=== PATIENT | female | born 1965 | race Caucasian/White ===

== ENCOUNTER → 2017-04-13 | Outpatient (REF) | payer MEDICARE, MEDICAID | LOC: M SFHCPLAZ 09:14 | PROVIDERS: ATTEND Family Medicine | DX: Z13.220 Encounter for screening for lipoid disorders (principal); R51 Headache; E55.9 Vitamin D deficiency, unspecified; Z68.42 Body mass index [BMI] 45.0-49.9, adult; Z53.8 Procedure and treatment not carried out for other reasons ==

== ENCOUNTER → 2017-04-20 | Outpatient (REF) | payer MEDICARE, MEDICAID ==
[2017-04-20 12:45] LABS: ALBUMIN 3.7 GM/DL (3.2-5.2); ALBUMIN/GLOBULIN RATIO 1.32 (1.00-1.93); ALKALINE PHOSPHATASE 75 U/L (45-117); ALT/SGPT 49 U/L (12-78); ANION GAP 14 MEQ/L (8-16); AST/SGOT 25 U/L (15-37); BILIRUBIN,TOTAL 0.5 MG/DL (0.2-1.0); BLOOD UREA NITROGEN 19 MG/DL (7-18); CALCIUM LEVEL 8.4 MG/DL (8.5-10.1); CARBON DIOXIDE LEVEL 17 MEQ/L (21-32); CHLORIDE LEVEL 110 MEQ/L (98-107); CHOLESTEROL LEVEL 187 MG/DL (<200); CREATININE FOR GFR 0.79 MG/DL (0.55-1.02); GLOMERULAR FILTRATION RATE > 60.0 (>51); GLUCOSE, FASTING 76 MG/DL (70-105); SODIUM LEVEL 141 MEQ/L (136-145); TOTAL PROTEIN 6.5 GM/DL (6.4-8.2); TRIGLYCERIDES LEVEL 58 MG/DL (<150)
== END ==
LOC: M LABDRAW1 11:35
PROVIDERS: ATTEND Family Medicine
DX: Z13.220 Encounter for screening for lipoid disorders (principal); R51 Headache; E55.9 Vitamin D deficiency, unspecified; Z68.42 Body mass index [BMI] 45.0-49.9, adult; E78.00 Pure hypercholesterolemia, unspecified

== ENCOUNTER → 2017-10-19 | Outpatient (REF) | payer MEDICARE, MEDICAID ==
[2017-10-21 01:09] LABS: TOPIRAMATE LEVEL 19.1 ug/mL (2.0-25.0)
== END ==
LOC: M LABDRAWC 12:10 → M LABDRAWP 12:10
PROVIDERS: ATTEND Physician Assistant Medical
DX: R56.9 Unspecified convulsions (principal); Z51.81 Encounter for therapeutic drug level monitoring; Z79.899 Other long term (current) drug therapy; Z23 Encounter for immunization
CPT/HCPCS: 36415; 80180; 80299; 90686; G0008

== ENCOUNTER → 2018-04-13 | Outpatient (REF) | payer MEDICARE, MEDICAID ==
[2018-04-16 10:18] LABS: LEVETIRACETAM (KEPPRA) 20.1 ug/mL (10.0-40.0)
[2018-04-16 10:18] LABS: TOPIRAMATE LEVEL 16.5 ug/mL (2.0-25.0)
== END ==
LOC: M LABNEURO 08:14
DX: G40.909 Epilepsy, unspecified, not intractable, without status epilepticus (principal)
CPT/HCPCS: 36415

== ENCOUNTER → 2018-04-29 | Outpatient (CLI) | payer MEDICARE, MEDICAID | LOC: M WUC 08:59 | DX: M51.37 Other intervertebral disc degeneration, lumbosacral region (principal); S39.012A Strain of muscle, fascia and tendon of lower back, initial encounter; X58.XXXA Exposure to other specified factors, initial encounter; Y92.89 Other specified places as the place of occurrence of the external cause | CPT/HCPCS: 87086 ==

== ENCOUNTER → 2018-10-14 | Outpatient (REF) | payer MEDICARE, MEDICAID ==
[2018-10-18 14:16] LABS: TOPIRAMATE LEVEL 15.4 ug/mL (2.0-25.0)
[2018-10-18 14:16] LABS: LEVETIRACETAM (KEPPRA) 20.7 ug/mL (10.0-40.0)
== END ==
LOC: M LABNEURO 08:23
DX: G40.909 Epilepsy, unspecified, not intractable, without status epilepticus (principal)
CPT/HCPCS: 80299

== ENCOUNTER → 2019-04-19 | Outpatient (CLI) | payer MEDICARE, MEDICAID ==
[2019-04-22 14:11] LABS: LEVETIRACETAM (KEPPRA) 20.4 ug/mL (10.0-40.0); TOPIRAMATE LEVEL 17.2 ug/mL (2.0-25.0)
== END ==
LOC: M LABNEURO 08:35 → EDSTATUS 09:22 → M LAB 09:22
PROVIDERS: ATTEND Physician Assistant Medical
DX: R56.9 Unspecified convulsions (principal)

== ENCOUNTER 2019-05-21 08:27 | Emergency (ER) | payer MEDICARE, MEDICAID ==
[~2019-05-21] VITALS: Ht 162.6 cm; Wt 136.4 kg
[2019-05-21 08:27] VITALS: BP 137/67
[2019-05-21] MEDS ORDERED: SERT-155 (08:44)
[2019-05-21] MEDS ORDERED: LEVO50TA5 (08:44)
[2019-05-21] MEDS ORDERED: TOPI200T7 (08:44)
[2019-05-21] MEDS ORDERED: LEVE500T5 (08:44)
[2019-05-21] MEDS ORDERED: FLUTISP (08:44)
[2019-05-21] MEDS ORDERED: D200CAP2 (08:44)
[2019-05-21] MEDS ORDERED: TOPI50TA9 (08:44)
[2019-05-21] MEDS ORDERED: LOTRCRE TOP (08:54)
== END 2019-05-21 09:05 | disposition home or self-care (01) ==
LOC: M ED 08:27
DX: B35.6 Tinea cruris (principal); E03.9 Hypothyroidism, unspecified; Z79.899 Other long term (current) drug therapy; Z79.890 Hormone replacement therapy; Z88.0 Allergy status to penicillin; Z88.2 Allergy status to sulfonamides; Z88.8 Allergy status to other drugs, medicaments and biological substances

== ENCOUNTER → 2019-06-28 | Outpatient (REF) | payer MEDICARE, MEDICAID ==
[~2019-06-28] MED LIST: D200CAP2; FLUTISP; LEVE500T5; LEVO50TA5; LOTRCRE TOP; SERT-155; TOPI200T7; TOPI50TA9
[2019-06-28 18:31] LABS: ALBUMIN 3.9 GM/DL (3.2-5.2); ALT/SGPT 23 U/L (12-78); BILIRUBIN,TOTAL 0.4 MG/DL (0.2-1.0); BLOOD UREA NITROGEN 20 MG/DL (7-18); CALCIUM LEVEL 8.9 MG/DL (8.5-10.1); CARBON DIOXIDE LEVEL 25 MEQ/L (21-32); CHLORIDE LEVEL 109 MEQ/L (98-107); CREATININE FOR GFR 1.01 MG/DL (0.55-1.30); FREE T4 0.77 NG/DL (0.76-1.46); GLOMERULAR FILTRATION RATE > 60.0 (>51); GLUCOSE, FASTING 95 MG/DL (70-100); POTASSIUM SERUM 3.9 MEQ/L (3.5-5.1); SODIUM LEVEL 139 MEQ/L (136-145); TOTAL PROTEIN 7.1 GM/DL (6.4-8.2)
[2019-06-28 18:34] LABS: TOTAL 25(OH) VITAMIN D 23.7 NG/ML (30.0-100.0)
== END ==
LOC: M SFHCPLAZ 14:38
PROVIDERS: ATTEND Family Medicine
DX: E55.9 Vitamin D deficiency, unspecified (principal); E03.9 Hypothyroidism, unspecified
CPT/HCPCS: 36415; 80053; 82306; 84439; 84443; G0463

== ENCOUNTER 2019-08-24 09:27 | Emergency (ER) | payer MEDICARE, MEDICAID ==
[~2019-08-24] VITALS: Ht 162.6 cm; Wt 136.4 kg
[2019-08-24 09:27] VITALS: BP 193/98
[~2019-08-24 09:27] MED LIST changes: -SERT-155; +SERT50TA29
[2019-08-24] MEDS ORDERED: ALL10TAB29 (09:35)
[2019-08-24] MEDS ORDERED: GLUC500C6 (09:35)
--- NOTE | 2019-08-24 10:21 | REP ---
CHEST, TWO VIEWS: Two views of the chest performed without priors for comparison. There is mild cardiomegaly. There is no acute infiltrate. There is some tortuosity of the thoracic aorta. Mediastinal silhouette is otherwise unremarkable. IMPRESSION: Mild cardiomegaly. No acute pulmonary disease. Electronically Signed by Jensen Duffy MD 08/24/2019 11:26 A
[2019-08-24] MEDS ORDERED: NYST1POW9 TOP (10:35)
== END 2019-08-24 10:41 | disposition home or self-care (01) ==
LOC: M ED 09:27
DX: B35.6 Tinea cruris (principal); J30.9 Allergic rhinitis, unspecified; I51.7 Cardiomegaly; E03.9 Hypothyroidism, unspecified; Z88.0 Allergy status to penicillin; Z88.2 Allergy status to sulfonamides; Z79.52 Long term (current) use of systemic steroids; Z79.899 Other long term (current) drug therapy

== ENCOUNTER → 2019-10-14 | Outpatient (REF) | payer MEDICARE, MEDICAID ==
[~2019-10-14] MED LIST changes: +ALL10TAB29; +GLUC500C6; +NYST1POW9 TOP
[2019-10-18 00:07] LABS: LEVETIRACETAM (KEPPRA) 16.3 ug/mL (10.0-40.0); TOPIRAMATE LEVEL 15.4 ug/mL (2.0-25.0)
== END ==
LOC: M LABNEURO 08:14
PROVIDERS: ATTEND Physician Assistant Medical
DX: G40.909 Epilepsy, unspecified, not intractable, without status epilepticus (principal)

== ENCOUNTER 2020-04-29 10:42 | Emergency (ER) | payer MEDICARE, MEDICAID ==
[~2020-04-29 10:42] MED LIST changes: -ALL10TAB29; +ALL10TAB29 PO; -FLUTISP; +FLUTISP NARES; -GLUC500C6; -LEVE500T5; +LEVE500T5 PO; -LEVO50TA5; +LEVO50TA5 PO; -SERT50TA29; +SERT50TA29 PO; -TOPI200T7; +TOPI200T7 PO; +[UNRECOGNIZED DRUG - CODE] PO
[2020-04-29] MEDS ORDERED: NAPR-885 PO (10:48)
[2020-04-29] MEDS ORDERED: TOLT2TAB12 PO (10:48)
[2020-04-29] MEDS ORDERED: LIDOCAINE 5% (LIDODERM) PATCH TD ONE (12:15)
[2020-04-29 12:43] LABS: BASO # 0.1 10^3/uL (0.0-0.2); BASO % 0.8 % (0.0-1.0); EOS # 0.2 10^3/uL (0.0-0.5); EOS % 1.8 % (0.0-3.0); HEMATOCRIT 49.3 % (36.0-47.0); HEMOGLOBIN 16.3 g/dl (12.0-15.5); LYMPH # 1.8 10^3/uL (1.5-5.0); LYMPH % 21.6 % (24.0-44.0); MEAN CORPUSCULAR HEMOGLOBIN 31.3 pg (27.0-33.0); MEAN CORPUSCULAR HGB CONC 33.1 g/dl (32.0-36.5); MEAN CORPUSCULAR VOLUME 94.6 fl (80.0-96.0); MONO # 0.5 10^3/uL (0.0-0.8); MONO % 5.5 % (0.0-5.0); NEUTROPHILS # 5.8 10^3/uL (1.5-8.5); NEUTROPHILS % 69.7 % (36.0-66.0); PLATELET COUNT, AUTOMATED 213 10^3/uL (150-450); RED BLOOD COUNT 5.21 10^6/uL (4.00-5.40); WHITE BLOOD COUNT 8.3 10^3/uL (4.0-10.0)
[2020-04-29] MEDS ORDERED: ACETAMINOPH W/CODEINE #3 TAB UD PO ONE (13:45)
[2020-04-29 13:46] VITALS: BP 138/77
[2020-04-29] MEDS ORDERED: LIDO5DIS41 TOP (14:12)
[2020-04-29] MEDS ORDERED: BACL10TA2 PO (14:12)
[2020-04-29] MEDS ORDERED: BACLOFEN 10 MG TAB PO ONE (14:15)
[2020-04-29] MEDS ORDERED: **NOTE PATIENT COMMENT** MISC XX SCH (21:00)
[2020-05-16] MEDS ORDERED: HALO10TA20 PO (10:10)
== END 2020-04-29 14:26 | disposition home or self-care (01) ==
LOC: M ED 10:42
DX: M54.5 Low back pain (principal); G89.29 Other chronic pain; G40.909 Epilepsy, unspecified, not intractable, without status epilepticus; E03.9 Hypothyroidism, unspecified; Z79.899 Other long term (current) drug therapy

== ENCOUNTER 2020-05-05 11:30 | Emergency (ER) | payer MEDICARE, MEDICAID ==
[~2020-05-05 11:30] MED LIST changes: +BACL10TA2 PO; +LIDO5DIS41 TOP; +NAPR-885 PO; +TOLT2TAB12 PO
[2020-05-05] MEDS ORDERED: HALOPERIDOL 5MG/ML VIAL (J1630 PER 1) IM ONE (13:15)
[2020-05-05] MEDS ORDERED: LORazepam 2 MG/ML VIAL IM ONE (13:15)
[2020-05-05 13:48] LABS: HEMATOCRIT 47.3 % (36.0-47.0); HEMOGLOBIN 15.9 g/dl (12.0-15.5); MEAN CORPUSCULAR HEMOGLOBIN 31.8 pg (27.0-33.0); MEAN CORPUSCULAR HGB CONC 33.6 g/dl (32.0-36.5); MEAN CORPUSCULAR VOLUME 94.6 fl (80.0-96.0); PLATELET COUNT, AUTOMATED 160 10^3/uL (150-450); WHITE BLOOD COUNT 7.8 10^3/uL (4.0-10.0)
[2020-05-05 13:59] LABS: HCG, SERUM QUALITATIVE NEGATIVE (NEGATIVE)
[2020-05-05 14:13] LABS: ACETAMINOPHEN LEVEL < 2.0 UG/ML (10.0-30.0); ALBUMIN 4.1 GM/DL (3.2-5.2); ALT/SGPT 23 U/L (12-78); AMPHETAMINES LEVEL URINE NEGATIVE (NEGATIVE); BARBITURATES URINE NEGATIVE (NEGATIVE); BENZODIAZEPINES URINE NEGATIVE (NEGATIVE); BILIRUBIN,DIRECT 0.1 MG/DL (0.0-0.2); BILIRUBIN,TOTAL 0.5 MG/DL (0.2-1.0); BLOOD UREA NITROGEN 17 MG/DL (7-18); CALCIUM LEVEL 8.9 MG/DL (8.5-10.1); CANNABINOIDS URINE NEGATIVE (NEGATIVE); CARBON DIOXIDE LEVEL 17 MEQ/L (21-32); CHLORIDE LEVEL 112 MEQ/L (98-107); COCAINE METABOLITE URINE NEGATIVE (NEGATIVE); CREATININE FOR GFR 1.04 MG/DL (0.55-1.30); ETHYL ALCOHOL (ETHANOL) 0.006 % (0.000-0.010); GLOMERULAR FILTRATION RATE 58.6 (>51); GLUCOSE, FASTING 97 MG/DL (70-100); METHADONE URINE NEGATIVE (NEGATIVE); OPIATES URINE NEGATIVE (NEGATIVE); PHENCYCLIDINE URINE NEGATIVE (NEGATIVE); POTASSIUM SERUM 4.3 MEQ/L (3.5-5.1); SALICYLATE LEVEL < 1.7 MG/DL (5.0-30.0); SODIUM LEVEL 139 MEQ/L (136-145); TOTAL PROTEIN 7.4 GM/DL (6.4-8.2)
[2020-05-05 17:12] VITALS: BP 151/77
[2020-05-16] MEDS ORDERED: HALO10TA20 PO (10:10)
== END 2020-05-05 17:13 | disposition home or self-care (01) ==
LOC: EDBD 11:30 → M ED 11:30
DX: F43.0 Acute stress reaction (principal); Z63.9 Problem related to primary support group, unspecified; E03.9 Hypothyroidism, unspecified; Z79.899 Other long term (current) drug therapy; Z88.0 Allergy status to penicillin; Z88.8 Allergy status to other drugs, medicaments and biological substances
CPT/HCPCS: 36415; 80048; 80076; 80307; 84443; 84703; 85027; 99284; G0480

== ENCOUNTER 2020-05-10 04:28 | Emergency (ER) | payer MEDICARE, MEDICAID ==
[2020-05-10 07:09] LABS: BASO % 0.7 % (0.0-1.0); EOS # 0.1 10^3/uL (0.0-0.5); HEMATOCRIT 45.7 % (36.0-47.0); HEMOGLOBIN 14.9 g/dl (12.0-15.5); LYMPH # 1.4 10^3/uL (1.5-5.0); LYMPH % 24.4 % (24.0-44.0); MEAN CORPUSCULAR HEMOGLOBIN 31.3 pg (27.0-33.0); MEAN CORPUSCULAR HGB CONC 32.6 g/dl (32.0-36.5); MONO # 0.4 10^3/uL (0.0-0.8); MONO % 6.8 % (0.0-5.0); NEUTROPHILS # 3.9 10^3/uL (1.5-8.5); NEUTROPHILS % 65.6 % (36.0-66.0); PLATELET COUNT, AUTOMATED 160 10^3/uL (150-450); RED BLOOD COUNT 4.76 10^6/uL (4.00-5.40); WHITE BLOOD COUNT 5.9 10^3/uL (4.0-10.0)
[2020-05-10] MEDS ORDERED: FLEET OIL RETENTION ENEMA PR PRN (07:15)
[2020-05-10 07:34] LABS: ALBUMIN 3.6 GM/DL (3.2-5.2); ALT/SGPT 19 U/L (12-78); BILIRUBIN,DIRECT < 0.1 MG/DL (0.0-0.2); BILIRUBIN,TOTAL 0.5 MG/DL (0.2-1.0); BLOOD UREA NITROGEN 14 MG/DL (7-18); CALCIUM LEVEL 8.5 MG/DL (8.5-10.1); CARBON DIOXIDE LEVEL 18 MEQ/L (21-32); CHLORIDE LEVEL 113 MEQ/L (98-107); CREATININE FOR GFR 1.08 MG/DL (0.55-1.30); GLOMERULAR FILTRATION RATE 56.1 (>51); GLUCOSE, FASTING 94 MG/DL (70-100); LIPASE 90 U/L (73-393); POTASSIUM SERUM 5.5 MEQ/L (3.5-5.1); SODIUM LEVEL 138 MEQ/L (136-145); TOTAL PROTEIN 6.6 GM/DL (6.4-8.2)
--- NOTE | 2020-05-10 08:07 | REP ---
REASON: Constipation. FINDINGS: KUB shows the intestinal gas pattern to be nonspecific. The organ silhouettes insofar as delineated are unremarkable. There is no evidence of free intraperitoneal air. IMPRESSION: Nonspecific. The stool pattern appears to be within normal limits. Electronically Signed by Phill Nixon DO 05/10/2020 08:07 A
[2020-05-10 09:08] LABS: BLOOD UREA NITROGEN 12 MG/DL (7-18); CALCIUM LEVEL 8.6 MG/DL (8.5-10.1); CARBON DIOXIDE LEVEL 18 MEQ/L (21-32); CHLORIDE LEVEL 112 MEQ/L (98-107); CREATININE FOR GFR 0.92 MG/DL (0.55-1.30); GLOMERULAR FILTRATION RATE > 60.0 (>51); GLUCOSE, FASTING 97 MG/DL (70-100); POTASSIUM SERUM 4.2 MEQ/L (3.5-5.1); SODIUM LEVEL 139 MEQ/L (136-145)
[2020-05-10] MEDS ORDERED: MIRA3350 PO (09:14)
[2020-05-10 09:25] VITALS: BP 134/82
[2020-05-11] MEDS ORDERED: D 202000 PO (10:33)
[2020-05-16] MEDS ORDERED: HALO10TA20 PO (10:10)
== END 2020-05-10 09:26 | disposition home or self-care (01) ==
LOC: EDBD 04:28 → M ED 04:28
DX: K59.00 Constipation, unspecified (principal); R10.9 Unspecified abdominal pain; E03.9 Hypothyroidism, unspecified; G40.909 Epilepsy, unspecified, not intractable, without status epilepticus; Z88.0 Allergy status to penicillin; Z88.8 Allergy status to other drugs, medicaments and biological substances; Z79.899 Other long term (current) drug therapy

== ENCOUNTER 2020-05-10 10:39 | Emergency (ER) | payer MEDICARE, MEDICAID ==
[~2020-05-10 10:39] MED LIST changes: +MIRA3350 PO
[2020-05-10 10:52] VITALS: BP 136/65
[2020-05-10] MEDS ORDERED: IBUPROFEN 800 MG TAB PO ONE (12:00)
[2020-05-11] MEDS ORDERED: D 202000 PO (10:33)
[2020-05-16] MEDS ORDERED: HALO10TA20 PO (10:10)
== END 2020-05-10 13:00 | disposition left against medical advice (07) ==
LOC: EDBD 10:39 → M ED 10:39
DX: R10.9 Unspecified abdominal pain (principal); G40.909 Epilepsy, unspecified, not intractable, without status epilepticus; E03.9 Hypothyroidism, unspecified; F41.9 Anxiety disorder, unspecified; E32.9 Disease of thymus, unspecified; Z88.0 Allergy status to penicillin; Z88.8 Allergy status to other drugs, medicaments and biological substances; Z79.899 Other long term (current) drug therapy

== ENCOUNTER 2020-05-10 18:45 | Emergency (ER) | payer MEDICARE, MEDICAID ==
[2020-05-10 21:24] VITALS: BP 132/65
[2020-05-11] MEDS ORDERED: D 202000 PO (10:33)
== END 2020-05-10 21:30 | disposition home or self-care (01) ==
LOC: M ED 18:45
DX: F91.9 Conduct disorder, unspecified (principal); R10.9 Unspecified abdominal pain; K59.00 Constipation, unspecified; G40.909 Epilepsy, unspecified, not intractable, without status epilepticus; E03.9 Hypothyroidism, unspecified; F41.9 Anxiety disorder, unspecified; F32.9 Major depressive disorder, single episode, unspecified; Z88.0 Allergy status to penicillin; Z88.8 Allergy status to other drugs, medicaments and biological substances; Z79.899 Other long term (current) drug therapy

== ENCOUNTER 2020-05-11 06:28 | Inpatient (IN) | payer MEDICARE, MEDICAID ==
[~2020-05-11] VITALS: Ht 172.7 cm; Wt 127.3 kg
[2020-05-11] VITALS (8 sets, daily range): BP systolic 108–151; BP diastolic 59–81
[2020-05-11] MEDS ORDERED: NS 1,000 ML IV ONE (07:30)
[2020-05-11] MEDS ORDERED: ISOVUE-370 76% 100ML VIAL As Ordered ONE (07:48)
[2020-05-11 08:10] LABS: HEMATOCRIT 45.6 % (36.0-47.0); HEMOGLOBIN 15.3 g/dl (12.0-15.5); MEAN CORPUSCULAR HEMOGLOBIN 32.1 pg (27.0-33.0); MEAN CORPUSCULAR HGB CONC 33.6 g/dl (32.0-36.5); MEAN CORPUSCULAR VOLUME 95.6 fl (80.0-96.0); PLATELET COUNT, AUTOMATED 141 10^3/uL (150-450); RED BLOOD COUNT 4.77 10^6/uL (4.00-5.40); WHITE BLOOD COUNT 5.4 10^3/uL (4.0-10.0)
--- NOTE | 2020-05-11 08:19 | REP ---
Two-view chest: 05/11/2020. Indication: Chest pain. Epigastric pain. Comparison: 08/24/2019. Findings: The lungs are clear. There is no pleural effusion or pneumothorax. The cardiac silhouette is at the upper limits of normal in size. The thoracic aorta is tortuous. Impression: Clear lungs. Electronically Signed by Fadi Lott DO 05/11/2020 08:11 A
[2020-05-11 08:39] LABS: ACETAMINOPHEN LEVEL < 2.0 UG/ML (10.0-30.0); ALT/SGPT 17 U/L (12-78); BILIRUBIN,DIRECT 0.1 MG/DL (0.0-0.2); BILIRUBIN,TOTAL 0.5 MG/DL (0.2-1.0); BLOOD UREA NITROGEN 12 MG/DL (7-18); CALCIUM LEVEL 8.4 MG/DL (8.5-10.1); CARBON DIOXIDE LEVEL 23 MEQ/L (21-32); CHLORIDE LEVEL 110 MEQ/L (98-107); CK-MB VALUE MASS 1.2 NG/ML (<3.6); CPK CREATINE PHOSPHOKINASE 55 U/L (26-192); CREATININE FOR GFR 1.02 MG/DL (0.55-1.30); ETHYL ALCOHOL (ETHANOL) 0.005 % (0.000-0.010); FREE T4 1.16 NG/DL (0.76-1.46); GLOMERULAR FILTRATION RATE 59.9 (>51); GLUCOSE, FASTING 89 MG/DL (70-100); LIPASE 113 U/L (73-393); MB/CK RELATIVE INDEX 2.18 (< OR =4); POTASSIUM SERUM 3.9 MEQ/L (3.5-5.1); SALICYLATE LEVEL < 1.7 MG/DL (5.0-30.0); SODIUM LEVEL 140 MEQ/L (136-145); TOTAL PROTEIN 7.2 GM/DL (6.4-8.2); TROPONIN I < 0.02 NG/ML (< 0.10)
--- NOTE | 2020-05-11 08:45 | REPVR ---
PROCEDURE INFORMATION: Exam: CT Abdomen And Pelvis With Contrast Exam date and time: 05/11/2020 8:00 AM Age: 55 years old Clinical indication: Abdominal pain; Generalized TECHNIQUE: Imaging protocol: Computed tomography of the abdomen and pelvis with intravenous contrast. Coronal and sagittal reformats were created and reviewed. Radiation optimization: All CT scans at this facility use at least one of these dose optimization techniques: automated exposure control; mA and/or kV adjustment per patient size (includes targeted exams where dose is matched to clinical indication); or iterative reconstruction. Contrast material: ISOVUE 370; Contrast volume: 100 ml; Contrast route: IV; COMPARISON: OH Abdomen,Flat Plate KUB 05/10/2020 6:28 AM FINDINGS: Limitations: Evaluation is limited by motion. Lungs: The visualized lung bases are unremarkable. Liver: Liver is unremarkable. Gallbladder and bile ducts: No intrahepatic or extrahepatic bile duct dilation. Evaluation of the gallbladder is limited by motion. The gallbladder is mildly dilated. Gallstones are present within the gallbladder. Pancreas: Pancreas is unremarkable. Spleen: Spleen is unremarkable. Adrenals: Adrenal glands are unremarkable. Kidneys and ureters: No hydronephrosis of either kidney. There are a few less than 5 mm rounded hypoattenuating foci of the left renal parenchyma that are too small to characterize, probably renal cysts. No ureteral calculus or abnormal dilation. Stomach and bowel: The stomach is decompressed; this limits evaluation of its wall thickness. No evidence of colonic inflammation or obstruction. No evidence of small bowel inflammation or obstruction. Appendix: No evidence of appendicitis. Intraperitoneal space: No free intraperitoneal fluid. No pneumoperitoneum. Vasculature: Mild aortic atherosclerosis. No abdominal aortic aneurysm. Lymph nodes: No enlarged lymph nodes. Bladder: The urinary bladder is decompressed. Reproductive: Unremarkable as visualized. Bones/joints: Multilevel degenerative spine disease. Among this, there is multilevel lumbar intervertebral disc space narrowing, endplate osteophytosis, Schmorl nodes, and neural foraminal stenoses. Soft tissues: Unremarkable. IMPRESSION: Cholecystolithiasis. Nonspecific mild gallbladder dilation. The gallbladder dilation could be secondary to fasting. If there are clinical signs/symptoms of acute cystic duct obstruction, then further evaluation with gallbladder ultrasound is recommended. COMMENTS: Consistent with the [place] [employer]'s Incidental Findings Committee white paper (J Am Francesca Radiol 2018): Any incidental renal lesion less than 1.0 cm or classified as too small to characterize, or any incidental cystic renal lesion characterized as simple-appearing, is likely benign. No follow-up imaging is recommended for these lesions per consensus recommendations based on imaging criteria. Electronically signed by: Vitor Gaitan On 05/11/2020 08:45:03 AM
[2020-05-11 09:48] LABS: AMPHETAMINES LEVEL URINE NEGATIVE (NEGATIVE); BARBITURATES URINE NEGATIVE (NEGATIVE); BENZODIAZEPINES URINE NEGATIVE (NEGATIVE); CANNABINOIDS URINE NEGATIVE (NEGATIVE); COCAINE METABOLITE URINE NEGATIVE (NEGATIVE); METHADONE URINE NEGATIVE (NEGATIVE); OPIATES URINE NEGATIVE (NEGATIVE); PHENCYCLIDINE URINE NEGATIVE (NEGATIVE)
--- NOTE | 2020-05-11 10:18 | REP ---
RIGHT UPPER QUADRANT ULTRASOUND: Real-time sonographic evaluation of the right upper quadrant performed. Multiple gallstones are seen in the gallbladder. These are mobile. There is no gallbladder wall thickening or pericholecystic fluid. The patient is tender at the site of the gallbladder with transducer pressure. There is on intrahepatic or extrahepatic biliary dilatation, common bile duct measuring 5 mm. Liver and pancreas demonstrates no gross mass. The pancreas is not optimally seen due to overlying bowel gas. Right kidney demonstrates no hydronephrosis with normal size 10.1 cm in length. IMPRESSION: Multiple mobile gallstones in the gallbladder. No gallbladder wall thickening. No pericholecystic fluid or biliary dilatation. Patient is tender at the site of the gallbladder. Unreviewed
[2020-05-11] MEDS ORDERED: D 202000 PO (10:33)
[2020-05-11] MEDS: NS 1,000 ML IV SCH ×2 (14:31→20:35)
[2020-05-11] MEDS ORDERED: LIDOCAINE 1% MDV 20ML VIAL As Ordered ONE (14:55)
[2020-05-11] MEDS ORDERED: KETOROLAC 30 MG/ML 1ML VIAL IV PRN (15:00)
--- NOTE | 2020-05-11 15:58 | ECGEPIP ---
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
[2020-05-11] MEDS ORDERED: LORazepam 2 MG/ML VIAL As Ordered ONE (16:14)
[2020-05-11] MEDS ORDERED: HALOPERIDOL 5MG/ML VIAL (J1630 PER 1) As Ordered ONE ×2 (16:18→16:31)
[2020-05-11] MEDS ORDERED: HALOPERIDOL 5MG/ML VIAL (J1630 PER 1) IM STA ×2 (16:50→16:51)
[2020-05-11] MEDS ORDERED: LORazepam 2 MG/ML VIAL IM STA (16:50)
[2020-05-11] MEDS ORDERED: diphenhydrAMINE 50MG/ML VIAL (J1200) IM PRN (17:00)
[2020-05-11] MEDS ORDERED: diphenhydrAMINE 50MG/ML VIAL (J1200) IM ONE (17:00)
[2020-05-11] MEDS ORDERED: HALOPERIDOL 5MG/ML VIAL (J1630 PER 1) IM PRN (17:00)
--- NOTE | 2020-05-11 18:20 | MHCRPDOC ---
[facility] Consultation Consultation DATE OF CONSULTATION: 05/11/20 CONSULTATION REQUESTED BY: Dr. 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 RELEVANT HISTORY: unknown mental health history. Unable to complete telehealth consultation due to technical problems, however patient need to be coded mu ltiple times and is still currently heavily sedated thus making hello consultation moot PAST PSYCHIATRIC HISTORY: unknown history PAST MEDICAL HISTORY:, abdominal pain FAMILY HISTORY: unknown PERSONAL AND SOCIAL HISTORY: Resides in: [place] with mother Marital Status: S Single Children: unknown Employment: unknown SUBSTANCE ABUSE HISTORY: urine toxicology negative MENTAL STATUS EXAMINATION: unable to complete DIAGNOSIS: 1. Aggression. PLAN: 1. Admitted to inpatient mental health on a 9.39. Vital Signs Vital Signs Date Time Temp Pulse Resp B/P (MAP) Pulse Ox O2 Delivery O2 Flow Rate FiO2 05/11/20 17:45 97.7 53 16 121/64 98 Room Air Laboratory Data 24H Labs Laboratory Tests 2 05/11/20 06:33: Urine Opiates Screen NEGATIVE, Urine Methadone Screen NEGATIVE, Urine Barbiturates Screen NEGATIVE, Urine Phencyclidine Screen NEGATIVE, Urine Amphetamines Screen NEGATIVE, Urine Benzodiazepines Screen NEGATIVE, Urine Cocaine Metabolite Screen NEGATIVE, Urine Cannabinoids Screen NEGATIVE 05/11/20 07:56: Nucleated Red Blood Cells % (auto) 0.0, Anion Gap 7L, Glomerular Filtration Rate 59.9, Lactic Acid Level 0.7, Calcium Level 8.4L, Total Bilirubin 0.5, Direct Bilirubin 0.1, Aspartate Amino Transf (AST/SGOT) 7, Alanine Aminotransferase (ALT/SGPT) 17, Alkaline Phosphatase 72, Total Creatine Kinase 55, Creatine Kinase MB 1.2, Creatine Kinase MB Relative Index 2.18, Troponin I < 0.02, Total Protein 7.2, Albumin 4.0, Albumin/Globulin Ratio 1.3, Lipase 113, Thyroid Stimulating Hormone (TSH) 2.930, Free Thyroxine 1.16, Salicylates Level < 1.7L, Acetaminophen Level < 2.0L, Ethyl Alcohol Level 0.005 05/11/20 09:19: Urine Color STRAW, Urine Appearance CLEAR, Urine pH 6.0, Urine Specific [place] >1.060H, Urine Protein NEGATIVE, Urine Glucose (UA) NEGATIVE, Urine Ketones NEGATIVE, Urine Blood NEGATIVE, Urine Nitrite NEGATIVE, Urine Bilirubin NEGATIVE, Urine Urobilinogen 0.2, Urine Leukocyte Esterase NEGATIVE, Urine WBC (Auto) 1, Urine RBC (Auto) 1, Urine Hyaline Casts (Auto) 0, Urine Bacteria (Auto) NEGATIVE, Urine Squamous Epithelial Cells 1, Urine Mucus (Auto) SMALL, Urine Sperm (Auto) 05/11/20 13:24: Methicillin-Resist S.aureus DNA PCR NOT DETECTED Home Medications Current Medications Current Medications Medications (Trade) Dose Ordered Sig/Joe Route PRN Reason Start Time Stop Time Status Last Admin Dose Admin Acetaminophen (Tylenol Tab) 650 mg Q4HP PRN PO PAIN OR FEVER 05/11/20 15:00 Diphenhydramine HCl (Benadryl) 50 mg Q6HP PRN IM AGITATION 05/11/20 17:00 Haloperidol (Haldol) 5 mg STAT STAT IM 05/11/20 16:50 05/11/20 16:52 DC 05/11/20 16:20 Haloperidol (Haldol) 5 mg STAT STAT IM 05/11/20 16:51 05/11/20 16:53 DC 05/11/20 16:31 Haloperidol (Haldol) 10 mg Q6HP PRN IM AGITATION 05/11/20 17:00 Home Med (Med Rec Complete!) ASDIRECTED XX 05/11/20 10:45 05/11/20 10:35 DC Ketorolac Tromethamine (ToRADol) 15 mg Q6HP PRN IV pain 05/11/20 15:00 05/16/20 14:59 Lorazepam (Ativan) 2 mg STAT STAT IM 05/11/20 16:50 05/11/20 16:52 DC 05/11/20 16:15 Sodium Chloride 1,000 ml @ 100 mls/hr Q10H IV 05/11/20 11:15 05/11/20 14:31 Scheduled Cetirizine HCl (Cetirizine HCl) 10 Mg Tablet, 10 MG PO DAILY, (Reported) Cholecalciferol (Vitamin D3) (Vitamin D3) 50 Mcg Tablet, 50 MCG PO DAILY, (Reported) Glucosamine Sulfate (Glucosamine Sulfate) 500 Mg Capsule, 500 MG PO DAILY, (Reported) Levothyroxine Sodium (Levothyroxine Sodium) 50 Mcg Tablet, 50 MCG PO DAILY, (Reported) Sertraline HCl (Sertraline HCl) 50 Mg Tablet, 50 MG PO DAILY, (Reported) Tolterodine Tartrate (Tolterodine Tartrate) 2 Mg Tablet, 2 MG PO BID, (Reported) Topiramate (Topiramate) 200 Mg Tablet, 200 MG PO BID, (Reported) levETIRAcetam (levETIRAcetam) 500 Mg Tablet, 500 MG PO BID, (Reported) Scheduled PRN Fluticasone Propionate (Fluticasone Propionate) 16 Gm [place].susp, 1 SPRAY NARES DAILY PRN for ALLERGIES, (Reported) Naproxen (Naproxen) 500 Mg Tablet, 500 MG PO BID PRN for PAIN, (Reported) Allergies Coded Allergies: Penicillins (Verified Allergy, Intermediate, HIVES, 05/05/20) sulfamethoxazole (Verified Allergy, Intermediate, HIVES, 05/05/20) trimethoprim (Verified Allergy, Intermediate, HIVES, 05/05/20) CLAUDIO AKERS DO May 11, 2020 18:20
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
--- NOTE | 2020-05-11 20:38 | ECGEPIP ---
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
[2020-05-12] MEDS: ACETAMINOPHEN TAB 650MG DOSE (2X325MG) PO PRN ×2 (00:58→07:49)
[2020-05-12 05:06] VITALS: BP 103/65
[2020-05-12] MEDS: NS 1,000 ML IV SCH (07:15)
[2020-05-12] MEDS ORDERED: ACET-683 PO (11:12)
[2020-05-14 15:08] LABS: LEVETIRACETAM (KEPPRA) 20.2 ug/mL (10.0-40.0); TOPIRAMATE LEVEL 16.2 ug/mL (2.0-25.0)
== END 2020-05-12 13:55 | DRG 445 ==
LOC: M ED 06:28 → M ED INP 10:51 → ENRESERV 11:16 → M MS5PR 12:28
PROVIDERS: ADMIT General Practice; ATTEND General Practice
DX: K80.50 Calculus of bile duct without cholangitis or cholecystitis without obstruction (principal); R45.851 Suicidal ideations; Z68.41 Body mass index [BMI] 40.0-44.9, adult; F70 Mild intellectual disabilities; R45.850 Homicidal ideations; E66.01 Morbid (severe) obesity due to excess calories; G40.909 Epilepsy, unspecified, not intractable, without status epilepticus; E02 Subclinical iodine-deficiency hypothyroidism; Z88.0 Allergy status to penicillin; Z88.8 Allergy status to other drugs, medicaments and biological substances

== ENCOUNTER 2020-05-12 07:16 | Inpatient (IN) | payer MEDICARE, MEDICAID ==
[~2020-05-12 07:16] MED LIST changes: +D 202000 PO
[2020-05-12] MEDS ORDERED: ACET-683 PO (11:12)
[2020-05-12] MEDS ORDERED: OLANZapine 5 MG TAB PO PRN (11:15)
[2020-05-12] MEDS ORDERED: ACETAMINOPHEN TAB 650MG DOSE (2X325MG) PO PRN (11:15)
[2020-05-12] MEDS ORDERED: MOM 30ML SUSPENSION UDC PO PRN (11:15)
[2020-05-12] MEDS ORDERED: MAALOX 30 ML SUSP *UDC PO PRN (11:15)
[2020-05-12] MEDS ORDERED: NAPROXEN 250 MG TAB PO PRN (13:45)
[2020-05-12] MEDS ORDERED: FLUTICASONE PROP 0.05% NASAL SPRAY 16 GM (FLONASE) NARES PRN (13:45)
[2020-05-12 15:57] VITALS: BP 130/78
[2020-05-12] MEDS: TOLTERODINE (DETROL) 2 MG TAB PO SCH (20:53)
[2020-05-12] MEDS: TOPIRAMATE (TopAMAX) 100 MG TAB PO SCH (20:55)
[2020-05-12] MEDS: OLANZapine ORAL DISINTEGRATING TAB 5MG PO SCH (20:55)
[2020-05-12] MEDS: traZODone 50 MG TAB PO PRN (20:55)
[2020-05-13] MEDS: LEVOTHYROXINE 50MCG TABLET (0.05MG) PO SCH (05:14)
[2020-05-13 06:51] VITALS: BP 139/73
[2020-05-13] MEDS: OLANZapine ORAL DISINTEGRATING TAB 5MG PO SCH (09:09)
[2020-05-13] MEDS: CETIRIZINE (ZyrTEC) 10 MG TAB PO SCH (09:10)
[2020-05-13] MEDS: TOLTERODINE (DETROL) 2 MG TAB PO SCH ×2 (09:10→22:21)
[2020-05-13] MEDS: TOPIRAMATE (TopAMAX) 100 MG TAB PO SCH ×2 (09:10→22:21)
[2020-05-13] MEDS: SERTRALINE HCL 50 MG TAB PO SCH (09:10)
[2020-05-13] MEDS: levETIRAcetam 250MG TABLET (KEPPRA) PO SCH ×2 (10:15→22:21)
[2020-05-13] MEDS: SENOKOT S TAB PO SCH ×2 (12:09→22:21)
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
[2020-05-13 16:34] VITALS: BP 122/65
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
[2020-05-13] MEDS ORDERED: BENZTROPINE 1 MG TAB PO PRN (18:30)
[2020-05-13] MEDS: traZODone 50 MG TAB PO PRN (22:21)
[2020-05-14] MEDS: LEVOTHYROXINE 50MCG TABLET (0.05MG) PO SCH (06:04)
[2020-05-14 06:35] VITALS: BP 115/62
[2020-05-14] MEDS: TOPIRAMATE (TopAMAX) 100 MG TAB PO SCH ×2 (08:37→21:53)
[2020-05-14] MEDS: SENOKOT S TAB PO SCH ×2 (08:37→21:52)
[2020-05-14] MEDS: CETIRIZINE (ZyrTEC) 10 MG TAB PO SCH (08:37)
[2020-05-14] MEDS: levETIRAcetam 250MG TABLET (KEPPRA) PO SCH ×2 (08:37→21:53)
[2020-05-14] MEDS: SERTRALINE HCL 50 MG TAB PO SCH (08:37)
[2020-05-14] MEDS: TOLTERODINE (DETROL) 2 MG TAB PO SCH ×2 (08:37→21:52)
--- NOTE | 2020-05-14 13:33 | MHIPNPDOC ---
[facility] Progress Note Progress Note DATE OF SERVICE: 05/14/20 José Miguel Cerda presents today for follow up. Currently taking Zyprexa. She denies any side effects from her medications. She denies thoughts of hurting people or hallucinations. Objective Speech: Normal volume. Normal rate. Cognition: Intellectually impaired. IQ 50. Thought Form: Linear but [place] and slow. Judgement: Limited and poor. Insight: limited Assessment Unspecified impluse/conduct disorder F79 Unspecified intellectual disabilities R45.6 Violent behavior Plan Continue Zyprexa. Continue to see housing problems and deal with referral to [facility] vs returning home. Vital Signs Vital Signs Date Time Temp Pulse Resp B/P (MAP) Pulse Ox O2 Delivery O2 Flow Rate FiO2 05/14/20 06:35 98.1 65 12 115/62 (79) 96 Room Air Current Medications Current Medications Medications (Trade) Dose Ordered Sig/Joe Route PRN Reason Start Time Stop Time Status Last Admin Dose Admin Acetaminophen (Tylenol Tab) 650 mg Q6HP PRN PO HEADACHE or DISCOMFORT 05/12/20 11:15 Al Hydrox/Mg Hydrox/Simethicone (Mylanta) 30 ml Q4HP PRN PO HEARTBURN/INDIGESTION 05/12/20 11:15 Benztropine Mesylate (Cogentin) 1 mg DAILY PRN PO extrapyramidal side effects 05/13/20 18:30 Cetirizine HCl (ZyrTEC) 10 mg DAILY PO 05/13/20 09:00 05/14/20 08:37 Fluticasone Propionate (Flonase 0.05% Nasal [place]) 1 spray DAILY PRN NARES ALLERGIES 05/12/20 13:45 Haloperidol (Haldol) 10 mg BID PO 05/13/20 21:00 05/14/20 08:37 Home Med (Med Rec Complete!) ASDIRECTED XX 05/12/20 13:30 05/12/20 14:22 DC Levetiracetam (Keppra) 500 mg BID PO 05/13/20 09:00 05/14/20 08:37 Levothyroxine Sodium (Synthroid) 50 mcg DAILY@0600 PO 05/13/20 06:00 05/14/20 06:04 Magnesium Hydroxide (Milk Of Magnesia) 30 ml DAILYPRN PRN PO CONSTIPATION 05/12/20 11:15 05/13/20 11:14 Naproxen (Naprosyn) 500 mg BID PRN PO PAIN 05/12/20 13:45 Olanzapine (ZyPREXA ZYDIS) 10 mg BID PO 05/12/20 21:00 05/13/20 18:17 DC 05/13/20 09:09 Olanzapine (ZyPREXA) 5 mg Q4HP PRN PO AGITATION 05/12/20 11:15 Senna/Docusate Sodium (Senokot S) 2 tab BID PO 05/13/20 09:00 05/14/20 08:37 Sertraline HCl (Zoloft) 50 mg DAILY PO 05/13/20 09:00 05/14/20 08:37 Tolterodine Tartrate (Detrol) 2 mg BID PO 05/12/20 21:00 05/14/20 08:37 Topiramate (TopAMAX) 200 mg BID PO 05/12/20 21:00 05/14/20 08:37 Trazodone HCl (Desyrel) 50 mg QHSP PRN PO INSOMNIA 05/12/20 11:15 05/13/20 22:21 Allergies Coded Allergies: Penicillins (Verified Allergy, Intermediate, HIVES, 05/05/20) sulfamethoxazole (Verified Allergy, Intermediate, HIVES, 05/05/20) trimethoprim (Verified Allergy, Intermediate, HIVES, 05/05/20) CLAUDIO AKERS DO May 14, 2020 13:33
[2020-05-14 15:48] VITALS: BP 150/67
[2020-05-14] MEDS: traZODone 50 MG TAB PO PRN (21:52)
[2020-05-15 06:00] VITALS: BP 116/55
[2020-05-15] MEDS: LEVOTHYROXINE 50MCG TABLET (0.05MG) PO SCH (06:16)
[2020-05-15] MEDS: SERTRALINE HCL 50 MG TAB PO SCH (08:53)
[2020-05-15] MEDS: levETIRAcetam 250MG TABLET (KEPPRA) PO SCH (08:53)
[2020-05-15] MEDS: TOLTERODINE (DETROL) 2 MG TAB PO SCH (08:53)
[2020-05-15] MEDS: CETIRIZINE (ZyrTEC) 10 MG TAB PO SCH (08:53)
[2020-05-15] MEDS: TOPIRAMATE (TopAMAX) 100 MG TAB PO SCH (08:53)
[2020-05-15] MEDS: SENOKOT S TAB PO SCH (08:53)
--- NOTE | 2020-05-15 09:27 | MHDSPDOC ---
[facility] Discharge Summary Discharge Summary DATE OF ADMISSION: May 12, 2020 at 14:00 DATE OF DISCHARGE:May 15, 2020 at 19:27 DISCHARGE DIAGNOSES: See Problem list below REASON FOR ADMISSION: 55-year-old woman admitted for aggression after being told that she can't come to the hospital for various problems, has a history of severe intellectual disability CONSULTANTS INVOLVED:[ None (basic hospitalist screening)] TREATMENT AND PROGRESS ON THE UNIT : Medication changes: resumed on home medications with adjunct of Haldol increase to 10 mg BID with positive effects Behavior on unit: initially quite upset, however resolved quite well and became fairly euthymic Treatment attendance: attended at times Notable issues on presentation: concerned with whether parents would allow the patient return home, which was resolved State on discharge: [improved] DISCHARGE ASSESSMENT: The patient a 55 year old woman, with likely intellectual impairment and aggression related to low frustration tolerance, presented to [facility], where they conservatively managed and resolved without major incident. Legal status considerations: The patient at the time of discharge did not meet criteria for involuntary admission/extension due to having a baseline mental status exam, baseline insight into the situation, They are engaged in the discharge process, as well as being friendly and amenable in behavioral control and havent been engaging in any observed concerning behavior or ideation recently. They decline voluntary extension/admission at this time and must be discharged in good baldemar, as Im unable to make a case for holding the patient against their will. They may have historical risk factors of admissions and other interactions with psychiatry however, those are not modifiable from a clinical perspective. The patient will need to be discharged in good baldemar. MENTAL STATUS EXAMINATION ON DISCHARGE: Patient was discharged early as her family wants to pick her up, originally were going to discharge patient the previous evening, however family had over he left by then PLAN/FOLLOWUP ARRANGEMENTS: Follow up appointments made (PCP and MH in 5 days of D/C date) and safety plan completed. Safety Planning aspects completed prior to discharge [Family contact completed, educated on safe practices, instructed on removal and mitigation of dangerous means] The amount of time spent in the coordination of care for this patient was approximately 30 minutes. Vital Signs/I&Os Vital Signs Date Time Temp Pulse Resp B/P (MAP) Pulse Ox O2 Delivery O2 Flow Rate FiO2 05/15/20 06:00 98.6 50 12 116/55 (75) 97 Nasal [place] Medications Scheduled Cetirizine HCl (Cetirizine HCl) 10 Mg Tablet, 10 MG PO DAILY, (Reported) Cholecalciferol (Vitamin D3) (Vitamin D3) 50 Mcg Tablet, 50 MCG PO DAILY, (Reported) Glucosamine Sulfate (Glucosamine Sulfate) 500 Mg Capsule, 500 MG PO DAILY, (Reported) Haloperidol (Haloperidol) 10 Mg Tablet, 10 MG PO BID for aggression for 7 Days, #14 Levothyroxine Sodium (Levothyroxine Sodium) 50 Mcg Tablet, 50 MCG PO DAILY, (Reported) Sertraline HCl (Sertraline HCl) 50 Mg Tablet, 50 MG PO DAILY, (Reported) Tolterodine Tartrate (Tolterodine Tartrate) 2 Mg Tablet, 2 MG PO BID, (Reported) Topiramate (Topiramate) 200 Mg Tablet, 200 MG PO BID, (Reported) levETIRAcetam (levETIRAcetam) 500 Mg Tablet, 500 MG PO BID, (Reported) Scheduled PRN Acetaminophen (Acetaminophen) 500 Mg Tablet, 1,000 MG PO Q6H PRN for DENTAL PAIN for 5 Days, #40 Fluticasone Propionate (Fluticasone Propionate) 16 Gm [place].susp, 1 SPRAY NARES DAILY PRN for ALLERGIES, (Reported) Naproxen (Naproxen) 500 Mg Tablet, 500 MG PO BID PRN for PAIN, (Reported) Allergies Coded Allergies: Penicillins (Verified Allergy, Intermediate, HIVES, 05/05/20) sulfamethoxazole (Verified Allergy, Intermediate, HIVES, 05/05/20) trimethoprim (Verified Allergy, Intermediate, HIVES, 05/05/20) Problems (1) Profound intellectual disabilities Status: Chronic (2) Aggression Status: Resolved Plan / VTE VTE Prophylaxis Ordered?: CLAUDIO Osei DO May 15, 2020 09:27
[2020-05-15] MEDS ORDERED: HALO10TA20 PO (11:32)
[2020-05-16] MEDS ORDERED: HALO10TA20 PO (10:10)
== END 2020-05-15 19:27 | disposition home or self-care (01) | DRG 884 ==
LOC: M PSY 14:00
PROVIDERS: ADMIT Psychiatry & Neurology Addiction Medicine; ATTEND Psychiatry & Neurology Addiction Medicine
DX: F73 Profound intellectual disabilities (principal); Z79.899 Other long term (current) drug therapy; Z88.0 Allergy status to penicillin; Z88.2 Allergy status to sulfonamides; Z88.8 Allergy status to other drugs, medicaments and biological substances; F39 Unspecified mood [affective] disorder

== ENCOUNTER 2020-05-18 08:09 | Emergency (ER) | payer MEDICARE, MEDICAID ==
[~2020-05-18 08:09] MED LIST changes: +ACET-683 PO; +HALO10TA20 PO
[2020-05-18] MEDS ORDERED: ROLLMIS8 XX (13:49)
[2020-05-18 14:01] VITALS: BP 145/68
[2020-05-19] MEDS ORDERED: comment (08:46)
== END 2020-05-18 14:30 | disposition home or self-care (01) ==
LOC: M ED 08:09 → EDBD 08:09 → M ED 14:30
DX: F98.9 Unspecified behavioral and emotional disorders with onset usually occurring in childhood and adolescence (principal); E03.9 Hypothyroidism, unspecified; Z79.899 Other long term (current) drug therapy; Z88.0 Allergy status to penicillin; Z88.8 Allergy status to other drugs, medicaments and biological substances

== ENCOUNTER 2020-05-19 05:07 | Inpatient (IN) | payer MEDICARE, MEDICAID ==
[~2020-05-19 05:07] MED LIST changes: -ALL10TAB29 PO; +CETI-24 PO; +ROLLMIS8 XX
--- NOTE | 2020-05-19 06:55 | REPVR ---
PROCEDURE INFORMATION: Exam: CT Head Without Contrast Exam date and time: 05/19/2020 6:23 AM Age: 55 years old Clinical indication: Injury or trauma; Fall; Initial encounter; Concussion / head injury; Consciousness not specified; Additional info: Fall hit rit front temporal area TECHNIQUE: Imaging protocol: Computed tomography of the head without contrast. Radiation optimization: All CT scans at this facility use at least one of these dose optimization techniques: automated exposure control; mA and/or kV adjustment per patient size (includes targeted exams where dose is matched to clinical indication); or iterative reconstruction. COMPARISON: No relevant prior studies available. FINDINGS: Brain: The cortical/white matter interfaces are preserved throughout the brain. There is no evidence of intracranial hemorrhage. Ventricles: The ventricular system is normal in size and configuration. Bones/joints: No acute fractures of the skull are identified. Sinuses: The visualized paranasal sinuses are clear. Mastoid air cells: The mastoid air cells are clear. Soft tissues: The soft tissues appear unremarkable. IMPRESSION: Normal appearance of the brain. No evidence of acute intracranial injury. Electronically signed by: Arianna Trujillo On 05/19/2020 06:55:30 AM
--- NOTE | 2020-05-19 07:01 | REPVR ---
PROCEDURE INFORMATION: Exam: CT Cervical Spine Without Contrast Exam date and time: 05/19/2020 6:23 AM Age: 55 years old Clinical indication: Neck pain; Additional info: Fall neck pain TECHNIQUE: Imaging protocol: Computed tomography images of the cervical spine without contrast. Radiation optimization: All CT scans at this facility use at least one of these dose optimization techniques: automated exposure control; mA and/or kV adjustment per patient size (includes targeted exams where dose is matched to clinical indication); or iterative reconstruction. COMPARISON: There are no relevant prior exams available for comparison. FINDINGS: Vertebrae: There is straightening of the cervical lordosis. There is minimal anterolisthesis of C7 on T1. There is a slight rightward convex curvature through the mid cervical spine. There is no evidence of acute fracture. Hypertrophic degenerative changes are seen at the articulation of the odontoid process with the anterior arch of C1. Large anterior endplate spurs are seen from C3-C4 through C6-C7. There is multilevel facet arthropathy, most prominent on the left side at C2-C3 and bilaterally at C3-C4 and C7-T1. Discs/Spinal canal/Neural foramina: There is disc space narrowing from C3-C4 through C6-C7. There is mild central canal stenosis at C6-C7 related to a diffuse disc osteophyte complex. Prevertebral Space: The prevertebral soft tissues appear normal. Soft tissues: The paraspinous soft tissues appear unremarkable. Lungs: The visualized lung apices are clear. IMPRESSION: 1. Mild rightward convex curvature of the cervical spine and a slight anterolisthesis of C7 on T1 which is probably degenerative related to the facet arthropathy at this level. 2. No acute fractures identified. 3. Multilevel degenerative disc disease and multilevel facet arthropathy. Electronically signed by: Arianna Trujillo On 05/19/2020 07:01:36 AM
[2020-05-19 07:10] LABS: BASO % 0.4 % (0.0-1.0); EOS % 0.4 % (0.0-3.0); HEMATOCRIT 42.7 % (36.0-47.0); HEMOGLOBIN 13.8 g/dl (12.0-15.5); LYMPH # 0.8 10^3/uL (1.5-5.0); MEAN CORPUSCULAR HEMOGLOBIN 30.9 pg (27.0-33.0); MEAN CORPUSCULAR HGB CONC 32.3 g/dl (32.0-36.5); MEAN CORPUSCULAR VOLUME 95.7 fl (80.0-96.0); MONO # 0.7 10^3/uL (0.0-0.8); MONO % 7.5 % (0.0-5.0); NEUTROPHILS # 7.5 10^3/uL (1.5-8.5); NEUTROPHILS % 82.2 % (36.0-66.0); PLATELET COUNT, AUTOMATED 123 10^3/uL (150-450); RED BLOOD COUNT 4.46 10^6/uL (4.00-5.40); WHITE BLOOD COUNT 9.2 10^3/uL (4.0-10.0)
[2020-05-19 07:53] LABS: ACETAMINOPHEN LEVEL < 2.0 UG/ML (10.0-30.0); ALBUMIN 3.7 GM/DL (3.2-5.2); ALT/SGPT 25 U/L (12-78); BILIRUBIN,DIRECT 0.3 MG/DL (0.0-0.2); BILIRUBIN,TOTAL 0.8 MG/DL (0.2-1.0); BLOOD UREA NITROGEN 18 MG/DL (7-18); CALCIUM LEVEL 8.9 MG/DL (8.5-10.1); CARBON DIOXIDE LEVEL 21 MEQ/L (21-32); CHLORIDE LEVEL 110 MEQ/L (98-107); CK-MB VALUE MASS 16.1 NG/ML (<3.6); CPK CREATINE PHOSPHOKINASE 1863 U/L (26-192); CREATININE FOR GFR 1.04 MG/DL (0.55-1.30); GLOMERULAR FILTRATION RATE 58.6 (>51); GLUCOSE, FASTING 90 MG/DL (70-100); LIPASE 77 U/L (73-393); MB/CK RELATIVE INDEX 0.86 (< OR =4); POTASSIUM SERUM 3.8 MEQ/L (3.5-5.1); SALICYLATE LEVEL < 1.7 MG/DL (5.0-30.0); SODIUM LEVEL 138 MEQ/L (136-145); TOTAL PROTEIN 6.4 GM/DL (6.4-8.2); TROPONIN I 0.12 NG/ML (< 0.10)
--- NOTE | 2020-05-19 08:10 | REP ---
Left shoulder: Three views. History: Limited range of motion. Findings: Three views of the left shoulder demonstrate normal alignment of the glenohumeral and acromioclavicular joints. There is mild osteoarthritic narrowing and sclerosis at the AC joint. Periarticular soft tissues are unremarkable. No fracture or subluxation is seen. 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 No acute bony abnormality. Electronically Signed by Ashish Parsons MD 05/19/2020 08:01 A
--- NOTE | 2020-05-19 08:14 | ECGEPIP ---
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
[2020-05-19] MEDS ORDERED: NS 1,000 ML IV ONE ×2 (08:15→10:45)
[2020-05-19] MEDS ORDERED: comment (08:46)
[2020-05-19 10:10] LABS: MB/CK RELATIVE INDEX 0.81 (< OR =4); TROPONIN I 0.11 NG/ML (< 0.10)
[2020-05-19] MEDS ORDERED: FLUTICASONE PROP 0.05% NASAL SPRAY 16 GM (FLONASE) NARES PRN (11:15)
--- NOTE | 2020-05-19 13:10 | HPEPDOC ---
General Date of Admission 05/19/2020 Date of Service: May 19, 2020 Chief Complaint The patient is a 55-year-old female Who presented to the ER after she had sustained multiple falls while at home History of Present Illness Patient is a 55-year-old female with a PMHx of Cognitive impairment with behavioral issues (cared for by he Mother), Seizure disorder, Subclinical hypothyroidism, Urinary incontinence, Degenerative disk disease, Cholelithiasis with biliary colic, Morbid obesity , who has presented to the emergency room after she had fallen several times. Patient was admitted to hospitalist service on 05/11 with complaints that abdominal pain. That was evaluated and found to be secondary to cholelithiasis and possible biliary colic. Patient was later transferred to the inpatient mental health unit on 05/12 because of aggression and behavioral problems. Patient was ultimately discharged from inpatient mental health unit on 05/15. Social workers and case management have been working on placement and ultimately did find a solution prior to discharge, however, patients mother was adamant that she will be going home. Patients mother/patient accounts clerk had indicated at that time that she was capable of caring for her mentally challenged daughter. It has been 4 days since her discharge and patient has reported multiple falls at home. Upon arrival to emergency room, patient was found to have bruising of her elbows and knees. Patient reports that shes been crawling around at home. Patient indicates that her mother is unable to care for her. Initial lab work in emergency room has revealed elevation of CK levels.. Hospitalist service was contacted for rhabdomyolysis. Currently patient denies any chest pain or palpitations. Denies any diarrhea or urinary discomfort.. She is a poor historian. Information has been acquired through the medical record and hospital ER staff. Home Medications Scheduled Cetirizine HCl (Cetirizine HCl) 10 Mg Tablet, 10 MG PO DAILY, (Reported) Cholecalciferol (Vitamin D3) (Vitamin D3) 50 Mcg Tablet, 50 MCG PO DAILY, (Reported) Glucosamine Sulfate (Glucosamine Sulfate) 500 Mg Capsule, 500 MG PO DAILY, (Reported) Haloperidol (Haloperidol) 10 Mg Tablet, 10 MG PO BID for aggression Levothyroxine Sodium (Levothyroxine Sodium) 50 Mcg Tablet, 50 MCG PO DAILY, (Reported) Sertraline HCl (Sertraline HCl) 50 Mg Tablet, 50 MG PO DAILY, (Reported) Tolterodine Tartrate (Tolterodine Tartrate) 2 Mg Tablet, 2 MG PO BID, (Reported) Topiramate (Topiramate) 200 Mg Tablet, 200 MG PO BID, (Reported) levETIRAcetam (levETIRAcetam) 500 Mg Tablet, 500 MG PO BID, (Reported) Scheduled PRN Acetaminophen (Acetaminophen) 500 Mg Tablet, 1,000 MG PO Q6H PRN for DENTAL PAIN Fluticasone Propionate (Fluticasone Propionate) 16 Gm Doyle.susp, 1 SPRAY NARES DAILY PRN for ALLERGIES, (Reported) Naproxen (Naproxen) 500 Mg Tablet, 500 MG PO BID PRN for PAIN, (Reported) Miscellaneous Medications [comment] , (Reported) Unable to confirm last dose with pt and mother Allergies Coded Allergies: Penicillins (Verified Allergy, Intermediate, HIVES, 05/05/20) sulfamethoxazole (Verified Allergy, Intermediate, HIVES, 05/05/20) trimethoprim (Verified Allergy, Intermediate, HIVES, 05/05/20) Past Medical History Medical History Cognitive impairment with behavioral issues (cared for by he Mother), Seizure disorder, Subclinical hypothyroidism, Urinary incontinence, Degenerative disk disease, Cholelithiasis with biliary colic, Morbid obesity Surgical History Tonsillectomy at the age of 4 Family History - Mother with history of osteoporosis and lymphoma; as per the patients she is actively dying, age 75 - Father is secondary to colon cancer at the age of 80 Social History - Denies the use of alcohol, tobacco or illicit drugs - Denies recent travel or sick contacts - Lives with her mother Review of Systems Other systems Unable to acquire full review of systems as patient is a poor historian Vital Signs - Vitals: BP 126/81, HR 75, RR 18, Sat 98%RA, Temp 97.1F - General: Lying in bed, Speaking in full sentences, Awake / Alert - HEENT: NC, AT, PERRLA, EOMI - CVS: RRR, +S1S2 - Lungs: Fair air entry bilaterally, No appreciable wheezing / rales / rhonchi - Abdomen: Soft, Non-distended, Non-tender, + Morbid obesity - Extremities: 1+ pitting edema at ankles, No calf tenderness - Neuro: No focal motor or sensory deficit - Skin: No visible rashes Laboratory Data Labs 24H Laboratory Tests 2 05/19/20 06:55: Immature Granulocyte % (Auto) 0.5, Neutrophils (%) (Auto) 82.2H, Lymphocytes (%) (Auto) 9.0L, Monocytes (%) (Auto) 7.5H, Eosinophils (%) (Auto) 0.4, Basophils (%) (Auto) 0.4, Neutrophils # (Auto) 7.5, Lymphocytes # (Auto) 0.8L, Monocytes # (Auto) 0.7, Eosinophils # (Auto) 0.0, Basophils # (Auto) 0.0, Nucleated Red Blood Cells % (auto) 0.0, Anion Gap 7L, Glomerular Filtration Rate 58.6, Calcium Level 8.9, Total Bilirubin 0.8, Direct Bilirubin 0.3H, Aspartate Amino Transf (AST/SGOT) 36, Alanine Aminotransferase (ALT/SGPT) 25, Alkaline Phosphatase 72, Total Creatine Kinase 1863H, Creatine Kinase MB 16.1H, Creatine Kinase MB Relative Index 0.86, Troponin I 0.12H, Total Protein 6.4, Albumin 3.7, Albumin/Globulin Ratio 1.4, Lipase 77, Salicylates Level < 1.7L, Acetaminophen Level < 2.0L 05/19/20 09:13: Total Creatine Kinase 2971H, Creatine Kinase MB 24.0H, Creatine Kinase MB Relative Index 0.81, Troponin I 0.11H CBC/BMP Laboratory Tests 05/19/20 06:55 Plan / VTE VTE Prophylaxis Ordered?: Yes Plan Plan Rhabdomyolysis - likely 2/2 multiple falls - Patient has presented to the emergency room after her recent discharge on 05/15 - She has reported multiple falls since her discharge home - CK levels completed this morning, 1863, has continued to itch and up, currently 2971 - Kidney function appears to be at baseline - Will check UA / Myoglobin - Will continue with IV fluid hydration Multiple falls - XR L shoulder 05/19: Mild osteoarthritis at the AC joint. No acute bony abnormality. - CT head 05/19: Normal appearance of the brain. No evidence of acute intracranial injury. - CT cervical spine 05/19: 1. Mild rightward convex curvature of the cervical spine and a slight anterolisthesis of C7 on T1 which is probably degenerative related to the facet arthropathy at this level. 2. No acute fractures identified. 3. Multilevel degenerative disc disease and multilevel facet arthropathy. - .Will continue with Tylenol when necessary - Will start PT Unsafe living conditions - Since patients discharge 05/15, she has reported multiple falls - Patient would like to be placed at a location where she can be taken care of, she reports that she does not want to go home - Patient has a therapeutic case manager as an outpatient, Dari Stanhope ([phone]) - On 05/15, patient had placement available, however, patients mother disagreed and took patient home under her care - At this time, will continue to look into placement options - Will discuss with case management/social workers about next steps Pitting edema at ankles - Currently is saturating well on room air - Lungs appear clear without any crackles - Will check ECHO Cognitive impairment with behavioral issues - c/w Sertraline and Haldol based on outpatient regimen Seizure disorder - c/w Keppra and Tomiramate Subclinical hypothyroidism Overactive bladder - c/w Tolterodine Degenerative disk disease - c/w Tylenol PRN Cholelithiasis with biliary colic Morbid obesity - Complicating medical care DVT prophylaxis - Will start Heparin MEDARDO DELGADO MD May 19, 2020 13:10
[2020-05-19 13:20] VITALS: BP 142/82
[2020-05-19 13:43] LABS: CHOLESTEROL LEVEL 181 MG/DL (<200); CHOLESTEROL RISK RATIO 3.232 (<5); HDL CHOLESTEROL 56 MG/DL (>40); LDL CHOLESTEROL 112 MG/DL (<100); NON-HDL-C 125 MG/DL; TRIGLYCERIDES LEVEL 64 MG/DL (<150)
[2020-05-19] MEDS: NS 1,000 ML IV SCH ×2 (13:48→21:12)
[2020-05-19 14:00] VITALS: BP 140/63
[2020-05-19 14:12] LABS: HEMOGLOBIN A1c 5.5 %
[2020-05-19 14:43] LABS: APPEARANCE, URINE HAZY (CLEAR); BACTERIA, URINE AUTO 1+ (NEGATIVE); BILIRUBIN, URINE AUTO NEGATIVE (NEGATIVE); BLOOD, URINE BLOOD NEGATIVE (NEGATIVE); COLOR, URINE YELLOW (YELLOW); GLUCOSE, URINE (UA) AUTO NEGATIVE (NEGATIVE); KETONE, URINE AUTO TRACE mg/dL (NEGATIVE); LEUKOCYTE ESTERASE, URINE AUTO 1+ (NEGATIVE); MUCUS, URINE SMALL (NEGATIVE); NITRITE, URINE AUTO NEGATIVE (NEGATIVE); PROTEIN, URINE AUTO NEGATIVE (NEGATIVE); RBC, URINE AUTO 3 /HPF (0-3); SPECIFIC GRAVITY URINE AUTO 1.024 (1.002-1.035); SQUAMOUS EPITHELIAL CELL UR AU 1 /HPF (0-6); WBC, URINE AUTO 5 /HPF (0-3)
[2020-05-19 16:04] LABS: CK-MB VALUE MASS 30.3 NG/ML (<3.6); MB/CK RELATIVE INDEX 0.82 (< OR =4); TROPONIN I 0.1 NG/ML (< 0.10)
[2020-05-19] MEDS: HEPARIN SOD (PORCINE) 5000UNITS/ML 1ML VIAL/SYRINGE SC SCH ×2 (17:06→21:12)
[2020-05-19] MEDS: TOLTERODINE (DETROL) 2 MG TAB PO SCH (20:08)
[2020-05-19] MEDS: levETIRAcetam 250MG TABLET (KEPPRA) PO SCH (20:09)
[2020-05-19] MEDS: ACETAMINOPHEN TAB 650MG DOSE (2X325MG) PO PRN (20:09)
[2020-05-19] MEDS: TOPIRAMATE (TopAMAX) 100 MG TAB PO SCH (20:09)
[2020-05-19 21:40] LABS: CK-MB VALUE MASS 20.8 NG/ML (<3.6); MB/CK RELATIVE INDEX 0.64 (< OR =4); TROPONIN I 0.05 NG/ML (< 0.10)
[2020-05-19 22:00] VITALS: BP 127/69
[2020-05-20] MEDS: HEPARIN SOD (PORCINE) 5000UNITS/ML 1ML VIAL/SYRINGE SC SCH ×3 (05:26→22:31)
[2020-05-20] MEDS: LEVOTHYROXINE 50MCG TABLET (0.05MG) PO SCH (05:26)
[2020-05-20] MEDS: NS 1,000 ML IV SCH ×3 (05:26→16:11)
[2020-05-20 06:00] VITALS: BP 126/65
[2020-05-20] MEDS: TOLTERODINE (DETROL) 2 MG TAB PO SCH ×2 (10:24→22:21)
[2020-05-20] MEDS: levETIRAcetam 250MG TABLET (KEPPRA) PO SCH ×2 (10:24→22:21)
[2020-05-20] MEDS: SERTRALINE HCL 50 MG TAB PO SCH (10:25)
[2020-05-20] MEDS: VITAMIN D (CHOLECALCIFEROL) 400 INTERNATIONAL UNITS TAB PO SCH (10:25)
[2020-05-20] MEDS: CETIRIZINE (ZyrTEC) 10 MG TAB PO SCH (10:26)
[2020-05-20] MEDS: TOPIRAMATE (TopAMAX) 100 MG TAB PO SCH ×2 (10:26→22:21)
--- NOTE | 2020-05-20 11:24 | IPNPDOC ---
Text Note Date of Service The patient was seen on 05/20/20. NOTE Subjective: Patient is a 55-year-old female with a PMHx of Cognitive impairment with behavioral issues (cared for by he Mother), Seizure disorder, Subclinical hypothyroidism, Urinary incontinence, Degenerative disk disease, Cholelithiasis with biliary colic, Morbid obesity , who has presented to the emergency room after she had fallen several times. Patient was admitted to hospitalist service on 05/11 with complaints that abdominal pain. That was evaluated and found to be secondary to cholelithiasis and possible biliary colic. Patient was later transferred to the inpatient mental health unit on 05/12 because of aggression and behavioral problems. Patient was ultimately discharged from inpatient mental health unit on 05/15. Social workers and case management have been working on placement and ultimately did find a solution prior to discharge, however, patients mother was adamant that she will be going home. Patients mother/sandblasting supervisor had indicated at that time that she was capable of caring for her mentally challenged daughter. It has been 4 days since her discharge and patient has reported multiple falls at home. Upon arrival to emergency room, patient was found to have bruising of her elbows and knees. Patient reports that shes been crawling around at home. Patient indicates that her mother is unable to care for her. Initial lab work in emergency room has revealed elevation of CK levels.. Hospitalist service was contacted for rhabdomyolysis. Patient was seen and examined at the bedside. Patient is sitting up in chair at bedside. She is eating her breakfast. She reports very mild knee and elbow pain. Denies nausea, vomiting, abdominal discomfort, diarrhea, or urinary discomfort. Objective: Vitals (See below) General: Lying in bed, appears comfortable, AAOx3 HEENT: NC, AT CVS: +S1S2 Lungs: Fair air entry b/l, no appreciable wheezing, rhonchi Abdomen: Soft, ND, NT Extremities: 1+ pitting edema at bilateral feet, - Calf tenderness Assessment and plan: Rhabdomyolysis - likely 2/2 multiple falls - Patient has presented to the emergency room after her recent discharge on 05/15 - She has reported multiple falls since her discharge home - CK levels completed this morning, 1863, has continued to itch and up, currently 2971 - Kidney function appears to be at baseline - UA without any significant features of infection / Myoglobin negative - c/w gentle IV fluid hydration; will likely DC within 24 hours Multiple falls - XR L shoulder 05/19: Mild osteoarthritis at the AC joint. No acute bony abnormality. - CT head 05/19: Normal appearance of the brain. No evidence of acute intr acranial injury. - CT cervical spine 05/19: 1. Mild rightward convex curvature of the cervical spine and a slight anterolisthesis of C7 on T1 which is probably degenerative related to the facet arthropathy at this level. 2. No acute fractures identified. 3. Multilevel degenerative disc disease and multilevel facet arthropathy. - Will continue with Tylenol when necessary - c/w PT Unsafe living conditions - Since patients discharge 05/15, she has reported multiple falls - Patient would like to be placed at a location where she can be taken care of, she reports that she does not want to go home - Patient has a case reviewer as an outpatient, Dari Salazar ([phone]) - On 05/15, patient had placement available, however, patients mother disagreed and took patient home under her care - At this time, will continue to look into placement options - Will discuss with case management/social workers about next steps Pitting edema at ankles - Saturating well on room air - Lungs remain clear - ECHO pending Cognitive impairment with behavioral issues - c/w Sertraline and Haldol based on outpatient regimen Seizure disorder - c/w Keppra and Topiramate Subclinical hypothyroidism Overactive bladder - c/w Tolterodine Degenerative disk disease - c/w Tylenol PRN Cholelithiasis with biliary colic Morbid obesity - Complicating medical care DVT prophylaxis - c/w Heparin VS,Fishbone, I+O VS, Fishbone, I+O Vital Signs Date Time Temp Pulse Resp B/P (MAP) Pulse Ox O2 Delivery O2 Flow Rate FiO2 05/20/20 06:00 98.0 63 18 126/65 (85) 95 Room Air I&O- Last 24 Hours up to 6 AM 05/20/20 06:00 Intake Total 2180 ml Output Total 200 ml Balance 1980 ml MEDARDO DELGADO MD May 20, 2020 11:24
[2020-05-20 14:00] VITALS: BP 140/78
[2020-05-20 19:20] LABS: BLOOD UREA NITROGEN 13 MG/DL (7-18); CALCIUM LEVEL 7.9 MG/DL (8.5-10.1); CARBON DIOXIDE LEVEL 21 MEQ/L (21-32); CHLORIDE LEVEL 112 MEQ/L (98-107); CPK CREATINE PHOSPHOKINASE 2222 U/L (26-192); CREATININE FOR GFR 0.92 MG/DL (0.55-1.30); GLOMERULAR FILTRATION RATE > 60.0 (>51); GLUCOSE, FASTING 93 MG/DL (70-100); MAGNESIUM LEVEL 1.8 MG/DL (1.8-2.4); POTASSIUM SERUM 4.2 MEQ/L (3.5-5.1); SODIUM LEVEL 142 MEQ/L (136-145)
[2020-05-20 22:00] VITALS: BP 118/66
[2020-05-21] MEDS: LEVOTHYROXINE 50MCG TABLET (0.05MG) PO SCH (05:53)
[2020-05-21] MEDS: HEPARIN SOD (PORCINE) 5000UNITS/ML 1ML VIAL/SYRINGE SC SCH ×3 (05:53→21:07)
[2020-05-21 06:00] VITALS: BP 120/64
[2020-05-21 06:48] LABS: BASO % 0.6 % (0.0-1.0); EOS # 0.3 10^3/uL (0.0-0.5); EOS % 4.9 % (0.0-3.0); HEMATOCRIT 36.1 % (36.0-47.0); HEMOGLOBIN 12.1 g/dl (12.0-15.5); LYMPH # 1.4 10^3/uL (1.5-5.0); LYMPH % 27.5 % (24.0-44.0); MEAN CORPUSCULAR HEMOGLOBIN 31.8 pg (27.0-33.0); MEAN CORPUSCULAR HGB CONC 33.5 g/dl (32.0-36.5); MEAN CORPUSCULAR VOLUME 94.8 fl (80.0-96.0); MONO # 0.4 10^3/uL (0.0-0.8); MONO % 8.4 % (0.0-5.0); PLATELET COUNT, AUTOMATED 115 10^3/uL (150-450); RED BLOOD COUNT 3.81 10^6/uL (4.00-5.40); WHITE BLOOD COUNT 5.1 10^3/uL (4.0-10.0)
[2020-05-21 08:02] LABS: BLOOD UREA NITROGEN 11 MG/DL (7-18); CALCIUM LEVEL 8.2 MG/DL (8.5-10.1); CARBON DIOXIDE LEVEL 19 MEQ/L (21-32); CHLORIDE LEVEL 113 MEQ/L (98-107); CPK CREATINE PHOSPHOKINASE 1757 U/L (26-192); CREATININE FOR GFR 0.74 MG/DL (0.55-1.30); GLOMERULAR FILTRATION RATE > 60.0 (>51); GLUCOSE, FASTING 92 MG/DL (70-100); MAGNESIUM LEVEL 1.9 MG/DL (1.8-2.4); SODIUM LEVEL 139 MEQ/L (136-145)
[2020-05-21] MEDS: NS 1,000 ML IV SCH ×2 (08:38→15:29)
[2020-05-21] MEDS: CETIRIZINE (ZyrTEC) 10 MG TAB PO SCH (09:38)
[2020-05-21] MEDS: VITAMIN D (CHOLECALCIFEROL) 400 INTERNATIONAL UNITS TAB PO SCH (09:38)
[2020-05-21] MEDS: SERTRALINE HCL 50 MG TAB PO SCH (09:38)
[2020-05-21] MEDS: TOLTERODINE (DETROL) 2 MG TAB PO SCH ×2 (09:38→21:08)
[2020-05-21] MEDS: levETIRAcetam 250MG TABLET (KEPPRA) PO SCH ×2 (09:38→21:08)
[2020-05-21] MEDS: TOPIRAMATE (TopAMAX) 100 MG TAB PO SCH ×2 (09:39→21:08)
--- NOTE | 2020-05-21 12:12 | IPNPDOC ---
Text Note Date of Service The patient was seen on 05/21/20. NOTE Subjective: Patient is a 55-year-old female with a PMHx of Cognitive impairment with behavioral issues (cared for by he Mother), Seizure disorder, Subclinical hypothyroidism, Urinary incontinence, Degenerative disk disease, Cholelithiasis with biliary colic, Morbid obesity , who has presented to the emergency room after she had fallen several times. Patient was admitted to hospitalist service on 05/11 with complaints that abdominal pain. That was evaluated and found to be secondary to cholelithiasis and possible biliary colic. Patient was later transferred to the inpatient mental health unit on 05/12 because of aggression and behavioral problems. Patient was ultimately discharged from inpatient mental health unit on 05/15. Social workers and case management have been working on placement and ultimately did find a solution prior to discharge, however, patients mother was adamant that she will be going home. Patients mother/community engagement coordinator had indicated at that time that she was capable of caring for her mentally challenged daughter. It has been 4 days since her discharge and patient has reported multiple falls at home. Upon arrival to emergency room, patient was found to have bruising of her elbows and knees. Patient reports that shes been crawling around at home. Patient indicates that her mother is unable to care for her. Initial lab work in emergency room has revealed elevation of CK levels.. Hospitalist service was contacted for rhabdomyolysis. Patient was seen and examined at the bedside. Patient reports that her evening is been uneventful. She denies chest pain, shortness of breath, abdominal discomfort, diarrhea, or urinary discomfort. Patient has been working with physical therapy. Objective: Vitals (See below) General: Lying in bed, appears comfortable, AAOx3 HEENT: NC, AT CVS: +S1S2 Lungs: Fair air entry b/l, no appreciable wheezing, rhonchi Abdomen: Soft, ND, NT Extremities: 1+ pitting edema at bilateral feet, - Calf tenderness Assessment and plan: Rhabdomyolysis - likely 2/2 multiple falls - Patient has presented to the emergency room after her recent discharge on 05/15 - She has reported multiple falls since her discharge home - CK levels have been trending down - Kidney function appears to be at baseline - UA without any significant features of infection / Myoglobin negative - c/w gentle IV fluid hydration - Patient has poor IV access in the midline will be placed so that she can continue receiving IV fluid hydration Multiple falls - XR L shoulder 05/19: Mild osteoarthritis at the AC joint. No acute bony abnormality. - CT head 05/19: Normal appearance of the brain. No evidence of acute intracranial injury. - CT cervical spine 05/19: 1. Mild rightward convex curvature of the cervical spine and a slight anterolisthesis of C7 on T1 which is probably degenerative related to the facet arthropathy at this level. 2. No acute fractures identifi ed. 3. Multilevel degenerative disc disease and multilevel facet arthropathy. - Will continue with Tylenol when necessary - c/w PT Unsafe living conditions - Since patients discharge 05/15, she has reported multiple falls - Patient would like to be placed at a location where she can be taken care of, she reports that she does not want to go home - Patient has a rehabilitation caseworker as an outpatient, Dari Salazar ([phone]) - On 05/15, patient had placement available, however, patients mother disagreed and took patient home under her care - At this time, will continue to look into placement options - Will discuss with case management/social workers about next steps Pitting edema at ankles - Saturating well on room air without any auscultated crackles - ECHO still remains pending Cognitive impairment with behavioral issues - c/w Sertraline and Haldol based on outpatient regimen Seizure disorder - c/w Keppra and Topiramate Subclinical hypothyroidism Overactive bladder - c/w Tolterodine Degenerative disk disease - c/w Tylenol PRN Cholelithiasis with biliary colic Morbid obesity - Complicating medical care DVT prophylaxis - c/w Heparin Disposition: - Anticipate transition to long-term care facility - Case management and social work looking into placement options VS,Fishbone, I+O VS, Fishbone, I+O Laboratory Tests 05/20/20 18:19 05/21/20 06:07 Vital Signs Date Time Temp Pulse Resp B/P (MAP) Pulse Ox O2 Delivery O2 Flow Rate FiO2 05/21/20 06:00 97.7 51 18 120/64 (82) 96 Room Air I&O- Last 24 Hours up to 6 AM 05/21/20 06:00 Intake Total 2600 ml Output Total 850 ml Balance 1750 ml MEDARDO DELGADO MD May 21, 2020 12:12
[2020-05-21 14:00] VITALS: BP 119/65
[2020-05-21] MEDS ORDERED: TUBERCULIN PPD 5 UNITS/0.1 ML ID ONE (15:00)
[2020-05-21] MEDS ORDERED: LIDOCAINE 1% MDV 20ML VIAL As Ordered ONE (15:28)
[2020-05-21] MEDS ORDERED: TETANUS/DIPHTHERIA TOX ADSORB ADULT 0.5ML SYR/VIAL (90714) IM ONE (16:00)
[2020-05-21 18:21] LABS: CK-MB VALUE MASS 7.4 NG/ML (<3.6); MB/CK RELATIVE INDEX 0.27 (< OR =4)
[2020-05-21] MEDS: ACETAMINOPHEN TAB 650MG DOSE (2X325MG) PO PRN (21:08)
[2020-05-21 22:00] VITALS: BP 136/66
[2020-05-22 06:00] VITALS: BP 135/85
[2020-05-22] MEDS: LEVOTHYROXINE 50MCG TABLET (0.05MG) PO SCH (06:12)
[2020-05-22] MEDS: HEPARIN SOD (PORCINE) 5000UNITS/ML 1ML VIAL/SYRINGE SC SCH ×3 (06:12→21:03)
[2020-05-22 06:34] LABS: BASO % 0.7 % (0.0-1.0); EOS # 0.1 10^3/uL (0.0-0.5); EOS % 2.3 % (0.0-3.0); HEMATOCRIT 40.2 % (36.0-47.0); HEMOGLOBIN 13.2 g/dl (12.0-15.5); LYMPH # 1.1 10^3/uL (1.5-5.0); LYMPH % 17.4 % (24.0-44.0); MEAN CORPUSCULAR HGB CONC 32.8 g/dl (32.0-36.5); MEAN CORPUSCULAR VOLUME 94.4 fl (80.0-96.0); MONO # 0.4 10^3/uL (0.0-0.8); MONO % 5.9 % (0.0-5.0); NEUTROPHILS # 4.4 10^3/uL (1.5-8.5); PLATELET COUNT, AUTOMATED 129 10^3/uL (150-450); RED BLOOD COUNT 4.26 10^6/uL (4.00-5.40); WHITE BLOOD COUNT 6.1 10^3/uL (4.0-10.0)
[2020-05-22 07:12] LABS: BLOOD UREA NITROGEN 11 MG/DL (7-18); CALCIUM LEVEL 8.8 MG/DL (8.5-10.1); CARBON DIOXIDE LEVEL 19 MEQ/L (21-32); CHLORIDE LEVEL 113 MEQ/L (98-107); CPK CREATINE PHOSPHOKINASE 2628 U/L (26-192); CREATININE FOR GFR 0.83 MG/DL (0.55-1.30); GLOMERULAR FILTRATION RATE > 60.0 (>51); GLUCOSE, FASTING 102 MG/DL (70-100); MAGNESIUM LEVEL 1.8 MG/DL (1.8-2.4); POTASSIUM SERUM 4.2 MEQ/L (3.5-5.1); SODIUM LEVEL 140 MEQ/L (136-145)
[2020-05-22] MEDS ORDERED: LORazepam 2 MG/ML VIAL As Ordered ONE (08:15)
[2020-05-22] MEDS: TOLTERODINE (DETROL) 2 MG TAB PO SCH ×2 (08:22→21:02)
[2020-05-22] MEDS: VITAMIN D (CHOLECALCIFEROL) 400 INTERNATIONAL UNITS TAB PO SCH (08:23)
[2020-05-22] MEDS: TOPIRAMATE (TopAMAX) 100 MG TAB PO SCH ×2 (08:23→21:03)
[2020-05-22] MEDS: CETIRIZINE (ZyrTEC) 10 MG TAB PO SCH (08:23)
[2020-05-22] MEDS: SERTRALINE HCL 50 MG TAB PO SCH (08:23)
[2020-05-22] MEDS: levETIRAcetam 250MG TABLET (KEPPRA) PO SCH ×2 (08:23→21:03)
--- NOTE | 2020-05-22 08:44 | ECHO ---
DATE OF STUDY: 05/21/2020 REFERRING PHYSICIAN: Dr. Richy Molina INDICATION: Localized edema. HEIGHT: 170 cm. WEIGHT: 141 kg. 2-D MEASUREMENTS: LVOT: 1.9 cm Aortic root: 3.3 cm Ventricular septum: 1.29 cm Posterior wall: 1.4 cm Left ventricle diastole: 4.1 cm Inferior vena cava: 2.0 cm DOPPLER MEASUREMENTS: Mild aortic regurgitation Aortic valve velocity: 153 cm/sec LVOT velocity: 131 cm/sec LVOT VTI: 29.6 cm Very mild mitral regurgitation Mild E velocity: 109 cm/sec Mitral A velocity: 68.6 cm/sec Mitral deceleration time: 173 ms Very mild tricuspid regurgitation Estimated right ventricular systolic pressure 32-37 mmHg assuming a right atrial pressure of 5-10 mmHg Very mild pulmonic regurgitation MITRAL ANNULAR TISSUE DOPPLER: E prime lateral: 12.3 cm/sec E prime septal: 6.7 cm/sec DESCRIPTION: The rhythm was sinus bradycardia. Image quality was fair. This was a 2-D, M-mode, color flow Doppler and pulse wave Doppler examination and included mitral annular tissue Doppler. CONCLUSIONS: 1. Mild concentric left ventricle hypertrophy. Normal regional LV wall motion and wall thickening. Normal LV systolic function. LVEF 60% by visual assessment. Normal LV diastolic function. 2. Normal right ventricle size and systolic function. Suggestive of mild elevation of estimated right ventricle systolic pressure. Very mild tricuspid regurgitation. 3. Mild aortic valve sclerosis of a 3-cuspid aortic valve. Mild aortic regurgitation. 4. Very small pericardial effusion.
--- NOTE | 2020-05-22 08:45 | IPNPDOC ---
Date Seen The patient was seen on 05/22/20. Progress Note SUBJECTIVE: 55-year-old female with past medical history of mental disability, seizure disorder who was admitted after multiple falls at home, likely due to lack of support. Patient has been divided by physical therapy and will require long-term placement, family is resistant to this idea. plastic worker is currently arranging for patient to be transferred to [facility] at time of discharge. Patient was seen in the morning, very guarded. Patient has no IV access, midline and PICC line were attempted yesterday without any success, I discussed placing a triple lumen catheter with the patient and she adamantly refused. Discussed with patient's sister over the phone, received consent for the procedure but patient became agitated and aggressive, procedure was never attempted. Patient did not want to discuss anything with me or allow an examination. OBJECTIVE Patient refused LABORATORY DATA, IMAGING STUDIES, MICROBIOLOGY: Please see below. ASSESSMENT AND PLAN: 55-year-old female with past medical history of cognitive impairment and seizure disorder is admitted after sustaining multiple falls at home due to physical deconditioning and lack of support requiring long-term placement. PROBLEMS: 1. Physical deconditioning: Lack of support at home, requires long-term placement, director of social services arranging for patient to be placed at [facility] at the time of discharge. 2. Seizure disorder: Continue Keppra and Topamax. 3. Rhabdomyolysis: Due to multiple falls at home, patient has no IV access, PICC line/midline were attempted yesterday without success, attempted to perform triple-lumen catheter placement today, but patient adamantly refused and became aggressive, so procedure was not attempted, will try later in the day if patient is agreeable. 4. Hypothyroidism: Continue levothyroxine DVT prophylaxis: Heparin subcutaneous GI profile: Not needed VS, I&O, 24H, Kyle Vital Signs/I&O Vital Signs Date Time Temp Pulse Resp B/P (MAP) Pulse Ox O2 Delivery O2 Flow Rate FiO2 05/22/20 06:00 98.5 60 17 135/85 (102) 96 Room Air I&O- Last 24 Hours up to 6 AM 05/22/20 06:00 Intake Total 1620 ml Output Total 1300 ml Balance 320 ml Laboratory Data 24H LABS Laboratory Tests 2 05/21/20 17:36: Total Creatine Kinase 2749H, Creatine Kinase MB 7.4H, Creatine Kinase MB Relative Index 0.27 05/22/20 05:48: Total Creatine Kinase 2628H, Immature Granulocyte % (Auto) 0.7, Neutrophils (%) (Auto) 73.0H, Lymphocytes (%) (Auto) 17.4L, Monocytes (%) (Auto) 5.9H, Eosinophils (%) (Auto) 2.3, Basophils (%) (Auto) 0.7, Neutrophils # (Auto) 4.4, Lymphocytes # (Auto) 1.1L, Monocytes # (Auto) 0.4, Eosinophils # (Auto) 0.1, Basophils # (Auto) 0.0, Nucleated Red Blood Cells % (auto) 0.0, Anion Gap 8, Glomerular Filtration Rate > 60.0, Calcium Level 8.8, Magnesium Level 1.8 CBC/BMP Laboratory Tests 05/22/20 05:48 CECIL STEARNS MD May 22, 2020 08:45
[2020-05-22] MEDS: LORazepam 2 MG/ML VIAL IM PRN (09:17)
[2020-05-22] MEDS ORDERED: HALOPERIDOL 5MG/ML VIAL (J1630 PER 1) As Ordered ONE (09:22)
[2020-05-22] MEDS ORDERED: diphenhydrAMINE 50MG/ML VIAL (J1200) As Ordered ONE (09:22)
[2020-05-22] MEDS ORDERED: HALOPERIDOL 5MG/ML VIAL (J1630 PER 1) IM PRN (09:30)
[2020-05-22] MEDS ORDERED: diphenhydrAMINE 50MG/ML VIAL (J1200) IM PRN (09:30)
[2020-05-22 14:00] VITALS: BP 122/66
[2020-05-22 22:00] VITALS: BP 144/82
[2020-05-23 06:00] VITALS: BP 119/78
[2020-05-23] MEDS: HEPARIN SOD (PORCINE) 5000UNITS/ML 1ML VIAL/SYRINGE SC SCH ×3 (06:16→21:41)
[2020-05-23] MEDS: LEVOTHYROXINE 50MCG TABLET (0.05MG) PO SCH (06:17)
[2020-05-23 06:35] LABS: BASO # 0.1 10^3/uL (0.0-0.2); EOS # 0.2 10^3/uL (0.0-0.5); EOS % 3.6 % (0.0-3.0); HEMATOCRIT 36.9 % (36.0-47.0); HEMOGLOBIN 12.1 g/dl (12.0-15.5); LYMPH # 1.4 10^3/uL (1.5-5.0); LYMPH % 26.6 % (24.0-44.0); MEAN CORPUSCULAR HEMOGLOBIN 31.6 pg (27.0-33.0); MEAN CORPUSCULAR HGB CONC 32.8 g/dl (32.0-36.5); MEAN CORPUSCULAR VOLUME 96.3 fl (80.0-96.0); MONO # 0.4 10^3/uL (0.0-0.8); NEUTROPHILS # 3.1 10^3/uL (1.5-8.5); NEUTROPHILS % 59.8 % (36.0-66.0); PLATELET COUNT, AUTOMATED 121 10^3/uL (150-450); RED BLOOD COUNT 3.83 10^6/uL (4.00-5.40); WHITE BLOOD COUNT 5.2 10^3/uL (4.0-10.0)
[2020-05-23 07:12] LABS: BLOOD UREA NITROGEN 15 MG/DL (7-18); CALCIUM LEVEL 8.5 MG/DL (8.5-10.1); CARBON DIOXIDE LEVEL 21 MEQ/L (21-32); CHLORIDE LEVEL 113 MEQ/L (98-107); CPK CREATINE PHOSPHOKINASE 1073 U/L (26-192); CREATININE FOR GFR 0.76 MG/DL (0.55-1.30); GLOMERULAR FILTRATION RATE > 60.0 (>51); GLUCOSE, FASTING 83 MG/DL (70-100); MAGNESIUM LEVEL 1.9 MG/DL (1.8-2.4); SODIUM LEVEL 139 MEQ/L (136-145)
[2020-05-23] MEDS: VITAMIN D (CHOLECALCIFEROL) 400 INTERNATIONAL UNITS TAB PO SCH (09:36)
[2020-05-23] MEDS: CETIRIZINE (ZyrTEC) 10 MG TAB PO SCH (09:36)
[2020-05-23] MEDS: levETIRAcetam 250MG TABLET (KEPPRA) PO SCH ×2 (09:37→21:41)
[2020-05-23] MEDS: TOPIRAMATE (TopAMAX) 100 MG TAB PO SCH ×2 (09:37→21:41)
[2020-05-23] MEDS: TOLTERODINE (DETROL) 2 MG TAB PO SCH ×2 (09:37→21:40)
[2020-05-23] MEDS: SERTRALINE HCL 50 MG TAB PO SCH (09:37)
[2020-05-23] MEDS ORDERED: PPD DOCUMENTATION ENTRY MISC XX ONE (10:00)
[2020-05-23 14:00] VITALS: BP 135/79
--- NOTE | 2020-05-23 19:53 | REP ---
MIDLINE INSERTION WITH ULTRASOUND GUIDANCE: REASON FOR EXAM: Poor IV access PROCEDURE: Midline catheter insertion under ultrasound guidance. This procedure was performed by KRISTINE Alexandra, under the direct supervision of Dr. Duffy. The risks and benefits of the procedure were explained to the patient and informed consent was obtained prior to the procedure both verbally and written. Directly prior to the start of the procedure, a formal timeout was completed in the procedure room. The right basilic vein was localized using ultrasound guidance. The skin was prepped and draped in a sterile fashion. 1% lidocaine 10 mg/ml was used as a local anesthetic. Using ultrasound guidance multiple attempts to gain access to the right basilic vein were attempted, all failed. The brachial veins were interrogated and none of them were found to be suitable for midline placement. The left arm was evaluated and no adequate vessels were visualized. The procedure was aborted and the patient discharged from the department. Reviewed by KRISTINE Salazar 05/22/2020 09:47 A Electronically Signed by Jensen Duffy MD 05/23/2020 07:44 P
[2020-05-23 22:00] VITALS: BP 131/58
[2020-05-24] MEDS: HEPARIN SOD (PORCINE) 5000UNITS/ML 1ML VIAL/SYRINGE SC SCH ×3 (05:29→21:08)
[2020-05-24] MEDS: LEVOTHYROXINE 50MCG TABLET (0.05MG) PO SCH (05:29)
[2020-05-24 06:00] VITALS: BP 123/62
[2020-05-24 07:08] LABS: BASO % 0.8 % (0.0-1.0); EOS # 0.2 10^3/uL (0.0-0.5); EOS % 3.1 % (0.0-3.0); HEMATOCRIT 35.7 % (36.0-47.0); HEMOGLOBIN 12.1 g/dl (12.0-15.5); MEAN CORPUSCULAR HEMOGLOBIN 31.8 pg (27.0-33.0); MEAN CORPUSCULAR HGB CONC 33.9 g/dl (32.0-36.5); MEAN CORPUSCULAR VOLUME 93.9 fl (80.0-96.0); MONO # 0.4 10^3/uL (0.0-0.8); MONO % 6.9 % (0.0-5.0); NEUTROPHILS # 3.6 10^3/uL (1.5-8.5); NEUTROPHILS % 68.4 % (36.0-66.0); PLATELET COUNT, AUTOMATED 126 10^3/uL (150-450); WHITE BLOOD COUNT 5.2 10^3/uL (4.0-10.0)
[2020-05-24 07:42] LABS: BLOOD UREA NITROGEN 16 MG/DL (7-18); CALCIUM LEVEL 8.2 MG/DL (8.5-10.1); CARBON DIOXIDE LEVEL 20 MEQ/L (21-32); CHLORIDE LEVEL 112 MEQ/L (98-107); CPK CREATINE PHOSPHOKINASE 694 U/L (26-192); GLOMERULAR FILTRATION RATE > 60.0 (>51); GLUCOSE, FASTING 86 MG/DL (70-100); MAGNESIUM LEVEL 1.8 MG/DL (1.8-2.4); POTASSIUM SERUM 4.3 MEQ/L (3.5-5.1); SODIUM LEVEL 140 MEQ/L (136-145)
[2020-05-24] MEDS: TOLTERODINE (DETROL) 2 MG TAB PO SCH ×2 (08:35→19:40)
[2020-05-24] MEDS: VITAMIN D (CHOLECALCIFEROL) 400 INTERNATIONAL UNITS TAB PO SCH (08:35)
[2020-05-24] MEDS: CETIRIZINE (ZyrTEC) 10 MG TAB PO SCH (08:35)
[2020-05-24] MEDS: SERTRALINE HCL 50 MG TAB PO SCH (08:35)
[2020-05-24] MEDS: levETIRAcetam 250MG TABLET (KEPPRA) PO SCH ×2 (08:36→19:40)
[2020-05-24] MEDS: TOPIRAMATE (TopAMAX) 100 MG TAB PO SCH ×2 (08:36→19:40)
[2020-05-24 18:49] LABS: APPEARANCE, URINE CLOUDY (CLEAR); BACTERIA, URINE AUTO 1+ (NEGATIVE); BILIRUBIN, URINE AUTO NEGATIVE (NEGATIVE); BLOOD, URINE BLOOD NEGATIVE (NEGATIVE); COLOR, URINE YELLOW (YELLOW); GLUCOSE, URINE (UA) AUTO NEGATIVE (NEGATIVE); KETONE, URINE AUTO NEGATIVE (NEGATIVE); LEUKOCYTE ESTERASE, URINE AUTO 1+ (NEGATIVE); MUCUS, URINE LARGE (NEGATIVE); NITRITE, URINE AUTO NEGATIVE (NEGATIVE); PROTEIN, URINE AUTO NEGATIVE (NEGATIVE); RBC, URINE AUTO 4 /HPF (0-3); SPECIFIC GRAVITY URINE AUTO 1.029 (1.002-1.035); SQUAMOUS EPITHELIAL CELL UR AU 2 /HPF (0-6); UROBILINOGEN, URINE AUTO 0.2 mg/dL (0.0-2.0); WBC, URINE AUTO 8 /HPF (0-3)
[2020-05-25] MEDS: HEPARIN SOD (PORCINE) 5000UNITS/ML 1ML VIAL/SYRINGE SC SCH ×3 (05:21→21:37)
[2020-05-25] MEDS: LEVOTHYROXINE 50MCG TABLET (0.05MG) PO SCH (05:24)
[2020-05-25 06:00] VITALS: BP 137/80
[2020-05-25 06:36] LABS: BASO % 0.8 % (0.0-1.0); EOS # 0.1 10^3/uL (0.0-0.5); EOS % 2.7 % (0.0-3.0); HEMATOCRIT 36.8 % (36.0-47.0); HEMOGLOBIN 12.2 g/dl (12.0-15.5); MEAN CORPUSCULAR HEMOGLOBIN 31.3 pg (27.0-33.0); MEAN CORPUSCULAR HGB CONC 33.2 g/dl (32.0-36.5); MEAN CORPUSCULAR VOLUME 94.4 fl (80.0-96.0); MONO # 0.4 10^3/uL (0.0-0.8); MONO % 7.8 % (0.0-5.0); NEUTROPHILS # 3.7 10^3/uL (1.5-8.5); NEUTROPHILS % 69.2 % (36.0-66.0); PLATELET COUNT, AUTOMATED 132 10^3/uL (150-450); WHITE BLOOD COUNT 5.3 10^3/uL (4.0-10.0)
[2020-05-25 06:54] LABS: BLOOD UREA NITROGEN 16 MG/DL (7-18); CALCIUM LEVEL 8.6 MG/DL (8.5-10.1); CARBON DIOXIDE LEVEL 21 MEQ/L (21-32); CHLORIDE LEVEL 111 MEQ/L (98-107); CPK CREATINE PHOSPHOKINASE 424 U/L (26-192); CREATININE FOR GFR 0.82 MG/DL (0.55-1.30); GLOMERULAR FILTRATION RATE > 60.0 (>51); GLUCOSE, FASTING 98 MG/DL (70-100); MAGNESIUM LEVEL 1.8 MG/DL (1.8-2.4); POTASSIUM SERUM 3.9 MEQ/L (3.5-5.1); SODIUM LEVEL 137 MEQ/L (136-145)
[2020-05-25] MEDS: VITAMIN D (CHOLECALCIFEROL) 400 INTERNATIONAL UNITS TAB PO SCH (09:31)
[2020-05-25] MEDS: CETIRIZINE (ZyrTEC) 10 MG TAB PO SCH (09:32)
[2020-05-25] MEDS: levETIRAcetam 250MG TABLET (KEPPRA) PO SCH ×2 (09:32→21:36)
[2020-05-25] MEDS: SERTRALINE HCL 50 MG TAB PO SCH (09:33)
[2020-05-25] MEDS: TOLTERODINE (DETROL) 2 MG TAB PO SCH ×2 (09:33→21:36)
[2020-05-25] MEDS: TOPIRAMATE (TopAMAX) 100 MG TAB PO SCH ×2 (09:36→21:36)
[2020-05-26 06:00] VITALS: BP 144/79
[2020-05-26] MEDS: LEVOTHYROXINE 50MCG TABLET (0.05MG) PO SCH (06:00)
[2020-05-26] MEDS: HEPARIN SOD (PORCINE) 5000UNITS/ML 1ML VIAL/SYRINGE SC SCH ×3 (06:00→20:36)
[2020-05-26 07:10] LABS: BASO % 0.8 % (0.0-1.0); EOS # 0.2 10^3/uL (0.0-0.5); EOS % 3.6 % (0.0-3.0); HEMATOCRIT 38.7 % (36.0-47.0); HEMOGLOBIN 12.6 g/dl (12.0-15.5); LYMPH # 1.1 10^3/uL (1.5-5.0); LYMPH % 22.5 % (24.0-44.0); MEAN CORPUSCULAR HEMOGLOBIN 31.2 pg (27.0-33.0); MEAN CORPUSCULAR HGB CONC 32.6 g/dl (32.0-36.5); MEAN CORPUSCULAR VOLUME 95.8 fl (80.0-96.0); MONO # 0.4 10^3/uL (0.0-0.8); MONO % 7.7 % (0.0-5.0); NEUTROPHILS # 3.2 10^3/uL (1.5-8.5); PLATELET COUNT, AUTOMATED 132 10^3/uL (150-450); RED BLOOD COUNT 4.04 10^6/uL (4.00-5.40); WHITE BLOOD COUNT 5.1 10^3/uL (4.0-10.0)
[2020-05-26 07:34] LABS: BLOOD UREA NITROGEN 15 MG/DL (7-18); CALCIUM LEVEL 8.8 MG/DL (8.5-10.1); CARBON DIOXIDE LEVEL 20 MEQ/L (21-32); CHLORIDE LEVEL 111 MEQ/L (98-107); CPK CREATINE PHOSPHOKINASE 224 U/L (26-192); GLOMERULAR FILTRATION RATE > 60.0 (>51); GLUCOSE, FASTING 89 MG/DL (70-100); MAGNESIUM LEVEL 1.9 MG/DL (1.8-2.4); SODIUM LEVEL 141 MEQ/L (136-145)
[2020-05-26 08:41] VITALS: BP 112/59
[2020-05-26] MEDS ORDERED: LORazepam 2 MG/ML VIAL As Ordered ONE (08:43)
[2020-05-26] MEDS: VITAMIN D (CHOLECALCIFEROL) 400 INTERNATIONAL UNITS TAB PO SCH (08:48)
[2020-05-26] MEDS: levETIRAcetam 250MG TABLET (KEPPRA) PO SCH ×2 (08:48→20:37)
[2020-05-26] MEDS: SERTRALINE HCL 50 MG TAB PO SCH (08:48)
[2020-05-26] MEDS: TOPIRAMATE (TopAMAX) 100 MG TAB PO SCH ×2 (08:48→20:37)
[2020-05-26] MEDS: TOLTERODINE (DETROL) 2 MG TAB PO SCH ×2 (08:48→20:37)
[2020-05-26] MEDS: LORazepam 2 MG/ML VIAL IM PRN (08:48)
[2020-05-26] MEDS: CETIRIZINE (ZyrTEC) 10 MG TAB PO SCH (08:48)
--- NOTE | 2020-05-26 10:10 | IPN ---
DATE: 05/25/2020 Patient is waiting for [facility] ([facility]) respite home. She has been cooperative, per nursing, at the bedside and has not been agitated or violent. She currently says "I want to go home. I am going home today". No nausea, vomiting diarrhea, abdominal pain, shortness of breath, chest pain, pressure or tightness, fever, chills, cough or weakness. Vitals: Temperature 97.7, pulse 62, respiratory rate 18, blood pressure 137/80, 96% on room air. Generally awake, alert, oriented times three answering questions appropriately. HEENT: Poor dentition missing teeth. Dental caries. Thick neck. No cervical lymphadenopathy or thyromegaly. Lungs are clear to auscultation. No wheezing rales. Heart: S1, S2 sinus rhythm. Abdomen is obese, soft, nontender, nondistended, positive bowel sounds times four quadrants. Extremities: No cyanosis, clubbing or edema. ASSESSMENT/PLAN: This is an 55-year-old female with cognitive impairment, seizure disorder, multiple falls at home and aggression unable to be discharged home. Patient is currently waiting [facility] ([facility]) respite bed. YULIANA
[2020-05-26] MEDS ORDERED: ONDANSETRON 4MG/2ML VIAL IV PRN (16:15)
[2020-05-26] MEDS ORDERED: ONDANSETRON 4MG/2ML VIAL IV ONE (16:30)
[2020-05-26] MEDS ORDERED: ONDANSETRON 4 MG TAB PO PRN (17:00)
[2020-05-26] MEDS ORDERED: ONDANSETRON 4 MG TAB PO ONE (17:30)
[2020-05-27] MEDS: ACETAMINOPHEN TAB 650MG DOSE (2X325MG) PO PRN ×3 (02:29→21:09)
[2020-05-27] MEDS: HEPARIN SOD (PORCINE) 5000UNITS/ML 1ML VIAL/SYRINGE SC SCH ×3 (05:53→20:08)
[2020-05-27] MEDS: LEVOTHYROXINE 50MCG TABLET (0.05MG) PO SCH (05:53)
[2020-05-27 06:00] VITALS: BP 135/63
[2020-05-27 07:27] LABS: BASO # 0.1 10^3/uL (0.0-0.2); BASO % 0.9 % (0.0-1.0); EOS # 0.2 10^3/uL (0.0-0.5); EOS % 2.6 % (0.0-3.0); HEMATOCRIT 40.4 % (36.0-47.0); HEMOGLOBIN 13.3 g/dl (12.0-15.5); LYMPH # 1.5 10^3/uL (1.5-5.0); LYMPH % 20.8 % (24.0-44.0); MEAN CORPUSCULAR HEMOGLOBIN 31.4 pg (27.0-33.0); MEAN CORPUSCULAR HGB CONC 32.9 g/dl (32.0-36.5); MEAN CORPUSCULAR VOLUME 95.3 fl (80.0-96.0); MONO # 0.5 10^3/uL (0.0-0.8); MONO % 6.9 % (0.0-5.0); NEUTROPHILS # 4.7 10^3/uL (1.5-8.5); NEUTROPHILS % 67.8 % (36.0-66.0); PLATELET COUNT, AUTOMATED 168 10^3/uL (150-450); RED BLOOD COUNT 4.24 10^6/uL (4.00-5.40)
[2020-05-27] MEDS: levETIRAcetam 250MG TABLET (KEPPRA) PO SCH ×2 (07:33→20:01)
[2020-05-27] MEDS: TOPIRAMATE (TopAMAX) 100 MG TAB PO SCH ×2 (07:33→20:02)
[2020-05-27] MEDS: VITAMIN D (CHOLECALCIFEROL) 400 INTERNATIONAL UNITS TAB PO SCH (07:38)
[2020-05-27] MEDS: TOLTERODINE (DETROL) 2 MG TAB PO SCH ×2 (07:39→20:08)
[2020-05-27] MEDS: SERTRALINE HCL 50 MG TAB PO SCH (07:39)
[2020-05-27] MEDS: CETIRIZINE (ZyrTEC) 10 MG TAB PO SCH (07:39)
[2020-05-27 07:42] LABS: BLOOD UREA NITROGEN 19 MG/DL (7-18); CALCIUM LEVEL 8.8 MG/DL (8.5-10.1); CARBON DIOXIDE LEVEL 20 MEQ/L (21-32); CHLORIDE LEVEL 110 MEQ/L (98-107); CREATININE FOR GFR 0.95 MG/DL (0.55-1.30); GLOMERULAR FILTRATION RATE > 60.0 (>51); GLUCOSE, FASTING 96 MG/DL (70-100); MAGNESIUM LEVEL 1.9 MG/DL (1.8-2.4); POTASSIUM SERUM 4.3 MEQ/L (3.5-5.1); SODIUM LEVEL 138 MEQ/L (136-145)
[2020-05-28 05:50] LABS: HEMATOCRIT 39.2 % (36.0-47.0); HEMOGLOBIN 12.9 g/dl (12.0-15.5); MEAN CORPUSCULAR HEMOGLOBIN 31.5 pg (27.0-33.0); MEAN CORPUSCULAR HGB CONC 32.9 g/dl (32.0-36.5); MEAN CORPUSCULAR VOLUME 95.8 fl (80.0-96.0); PLATELET COUNT, AUTOMATED 152 10^3/uL (150-450); RED BLOOD COUNT 4.09 10^6/uL (4.00-5.40); WHITE BLOOD COUNT 5.3 10^3/uL (4.0-10.0)
[2020-05-28 06:00] VITALS: BP 136/65
[2020-05-28 06:19] LABS: BLOOD UREA NITROGEN 15 MG/DL (7-18); CALCIUM LEVEL 8.9 MG/DL (8.5-10.1); CARBON DIOXIDE LEVEL 21 MEQ/L (21-32); CHLORIDE LEVEL 109 MEQ/L (98-107); CREATININE FOR GFR 0.84 MG/DL (0.55-1.30); GLOMERULAR FILTRATION RATE > 60.0 (>51); GLUCOSE, FASTING 96 MG/DL (70-100); POTASSIUM SERUM 4.3 MEQ/L (3.5-5.1); SODIUM LEVEL 137 MEQ/L (136-145)
[2020-05-28] MEDS: HEPARIN SOD (PORCINE) 5000UNITS/ML 1ML VIAL/SYRINGE SC SCH ×3 (06:33→20:16)
[2020-05-28] MEDS: LEVOTHYROXINE 50MCG TABLET (0.05MG) PO SCH (06:33)
[2020-05-28] MEDS: MIRALAX *UNIT DOSE* 17GM PACKET PO PRN (09:18)
[2020-05-28] MEDS: CETIRIZINE (ZyrTEC) 10 MG TAB PO SCH (09:19)
[2020-05-28] MEDS: VITAMIN D (CHOLECALCIFEROL) 400 INTERNATIONAL UNITS TAB PO SCH (09:19)
[2020-05-28] MEDS: ACETAMINOPHEN TAB 650MG DOSE (2X325MG) PO PRN ×2 (09:19→20:21)
[2020-05-28] MEDS: TOLTERODINE (DETROL) 2 MG TAB PO SCH ×2 (09:19→20:17)
[2020-05-28] MEDS: TOPIRAMATE (TopAMAX) 100 MG TAB PO SCH ×2 (09:19→20:16)
[2020-05-28] MEDS: SERTRALINE HCL 50 MG TAB PO SCH (09:19)
[2020-05-28] MEDS: levETIRAcetam 250MG TABLET (KEPPRA) PO SCH ×2 (09:20→20:17)
[2020-05-29] MEDS: LEVOTHYROXINE 50MCG TABLET (0.05MG) PO SCH (05:56)
[2020-05-29] MEDS: HEPARIN SOD (PORCINE) 5000UNITS/ML 1ML VIAL/SYRINGE SC SCH ×3 (05:57→21:59)
[2020-05-29 06:00] VITALS: BP 138/77
[2020-05-29] MEDS: VITAMIN D (CHOLECALCIFEROL) 400 INTERNATIONAL UNITS TAB PO SCH (08:53)
[2020-05-29] MEDS: TOLTERODINE (DETROL) 2 MG TAB PO SCH ×2 (08:53→21:59)
[2020-05-29] MEDS: SERTRALINE HCL 50 MG TAB PO SCH (08:53)
[2020-05-29] MEDS: CETIRIZINE (ZyrTEC) 10 MG TAB PO SCH (08:53)
[2020-05-29] MEDS: TOPIRAMATE (TopAMAX) 100 MG TAB PO SCH ×2 (08:54→21:59)
[2020-05-29] MEDS: levETIRAcetam 250MG TABLET (KEPPRA) PO SCH ×2 (08:54→22:00)
[2020-05-29] MEDS: SENOKOT S TAB PO SCH ×2 (12:39→22:00)
[2020-05-29] MEDS: ACETAMINOPHEN TAB 650MG DOSE (2X325MG) PO PRN (21:59)
[2020-05-30] MEDS: HEPARIN SOD (PORCINE) 5000UNITS/ML 1ML VIAL/SYRINGE SC SCH ×3 (05:23→20:51)
[2020-05-30] MEDS: LEVOTHYROXINE 50MCG TABLET (0.05MG) PO SCH (05:23)
[2020-05-30 06:00] VITALS: BP 137/77
[2020-05-30] MEDS: SERTRALINE HCL 50 MG TAB PO SCH (08:45)
[2020-05-30] MEDS: SENOKOT S TAB PO SCH ×2 (08:45→20:50)
[2020-05-30] MEDS: VITAMIN D (CHOLECALCIFEROL) 400 INTERNATIONAL UNITS TAB PO SCH (08:45)
[2020-05-30] MEDS: TOLTERODINE (DETROL) 2 MG TAB PO SCH ×2 (08:45→20:50)
[2020-05-30] MEDS: levETIRAcetam 250MG TABLET (KEPPRA) PO SCH ×2 (08:45→20:50)
[2020-05-30] MEDS: TOPIRAMATE (TopAMAX) 100 MG TAB PO SCH ×2 (08:45→20:51)
[2020-05-30] MEDS: CETIRIZINE (ZyrTEC) 10 MG TAB PO SCH (08:45)
--- NOTE | 2020-05-30 19:52 | DS.PDOC ---
Discharge Summary General Date of Admission May 19, 2020 at 11:09 Date of Discharge 05/30/2020 Discharge Summary PRIMARY CARE PHYSICIAN: Dr. Chelle MD ATTENDING AT TIME OF DISCHARGE: Dr. Kim Aldana, DISCHARGE DIAGNOS(E)S: Rhabdomyolysis Seizure disorder Multiple falls at home Cholelithiasis with biliary colic Cognitive impairment Aggression Subclinical hypothyroidism Urinary incontinence Degenerative disc disease Morbid obesity Overactive bladder HPI & HOSPITAL COURSE: During her hospitalization, rhabdomyolysis was treated with IV fluid rehydration. Multiple imaging studies were performed in regards to her multiple falls, no traumatic injuries were found, physical therapy did work with her while inpatient. PFS has worked diligently with the patient and her family trying to find a safe location for discharge. She has been medically cleared for a few days now, she was only awaiting placement. A bed has now been found at a [facility] facility that seems suitable for her, therefore she is ready for discharge at this time PHYSICAL EXAMINATION ON DISCHARGE: GENERAL: Alert, she does not appear to be in any acute distress at this time. CARDIOVASCULAR EXAMINATION: Regular rate and rhythm, with no rubs, gallops, or murmur. RESPIRATORY EXAMINATION: Clear to auscultation bilaterally with no wheezes, rales, or rhonchi. ABDOMINAL EXAMINATION: Soft, nontender, nondistended. Bowel sounds present. EXTREMITIES: No clubbing or edema noted. 2+ pulses in the radial bilaterally. DISPOSITION: Disposition to [facility] respite home DISCHARGE INSTRUCTIONS: Follow-up with primary care provider within 7 days. Recommend a low-fat, low- cholesterol diet. Activity: Walk with walker If symptoms return, or if you experience worsening of your symptoms, please call your doctor or return to the emergency department. DISCHARGE MEDICATIONS: Acetaminophen 500 mg tablets, 1000 mg by mouth every 6 hours as needed for dental pain Cetirizine 10 mg by mouth daily Vitamin D3 50 MCG by mouth daily Fluticasone 1 spray daily as needed for allergies Glucosamine sulfate 500 mg daily Haloperidol 10 mg by mouth twice a day Keppra 500 mg by mouth twice a day Levothyroxine if the MCG by mouth daily Sertraline 50 MG by mouth daily Tolterodine tartrate 2 mg by mouth twice a day Topiramate 200 mg by mouth twice a day Vital Signs/I&Os Vital Signs Date Time Temp Pulse Resp B/P (MAP) Pulse Ox O2 Delivery O2 Flow Rate FiO2 05/30/20 06:00 98.6 73 20 137/77 (97) 95 Room Air I&O- Last 24 Hours up to 6 AM 05/30/20 06:00 Intake Total 260 ml Output Total 500 ml Balance -240 ml Microbiology Microbiology 05/24/20 Urine Culture - Final, Complete 05/24/20 Respiratory Virus Panel (PCR) (TATUM) - Final, Complete Discharge Medications Scheduled Cetirizine HCl (Cetirizine HCl) 10 Mg Tablet, 10 MG PO DAILY, (Reported) Cholecalciferol (Vitamin D3) (Vitamin D3) 50 Mcg Tablet, 50 MCG PO DAILY, (Reported) Glucosamine Sulfate (Glucosamine Sulfate) 500 Mg Capsule, 500 MG PO DAILY, (Reported) Haloperidol (Haloperidol) 10 Mg Tablet, 10 MG PO BID for aggression Levothyroxine Sodium (Levothyroxine Sodium) 50 Mcg Tablet, 50 MCG PO DAILY, (Reported) Sertraline HCl (Sertraline HCl) 50 Mg Tablet, 50 MG PO DAILY, (Reported) Tolterodine Tartrate (Tolterodine Tartrate) 2 Mg Tablet, 2 MG PO BID, (Reported) Topiramate (Topiramate) 200 Mg Tablet, 200 MG PO BID, (Reported) levETIRAcetam (levETIRAcetam) 500 Mg Tablet, 500 MG PO BID, (Reported) Scheduled PRN Acetaminophen (Acetaminophen) 500 Mg Tablet, 1,000 MG PO Q6H PRN for DENTAL PAIN Fluticasone Propionate (Fluticasone Propionate) 16 Gm [place].susp, 1 SPRAY NARES DAILY PRN for ALLERGIES, (Reported) Miscellaneous Medications [comment] , (Reported) Unable to confirm last dose with pt and mother Allergies Coded Allergies: Penicillins (Verified Allergy, Intermediate, HIVES, 05/05/20) sulfamethoxazole (Verified Allergy, Intermediate, HIVES, 05/05/20) trimethoprim (Verified Allergy, Intermediate, HIVES, 05/05/20) KIM ALDANA DO May 30, 2020 19:52
[2020-05-31] MEDS: HEPARIN SOD (PORCINE) 5000UNITS/ML 1ML VIAL/SYRINGE SC SCH ×3 (05:15→20:27)
[2020-05-31] MEDS: LEVOTHYROXINE 50MCG TABLET (0.05MG) PO SCH (05:15)
[2020-05-31 06:00] VITALS: BP 134/77
[2020-05-31 07:07] LABS: HEMATOCRIT 39.3 % (36.0-47.0); HEMOGLOBIN 12.9 g/dl (12.0-15.5); MEAN CORPUSCULAR HEMOGLOBIN 31.7 pg (27.0-33.0); MEAN CORPUSCULAR HGB CONC 32.8 g/dl (32.0-36.5); MEAN CORPUSCULAR VOLUME 96.6 fl (80.0-96.0); PLATELET COUNT, AUTOMATED 149 10^3/uL (150-450); RED BLOOD COUNT 4.07 10^6/uL (4.00-5.40); WHITE BLOOD COUNT 6.4 10^3/uL (4.0-10.0)
[2020-05-31] MEDS: CETIRIZINE (ZyrTEC) 10 MG TAB PO SCH (10:00)
[2020-05-31] MEDS: levETIRAcetam 250MG TABLET (KEPPRA) PO SCH ×2 (10:00→20:27)
[2020-05-31] MEDS: VITAMIN D (CHOLECALCIFEROL) 400 INTERNATIONAL UNITS TAB PO SCH (10:00)
[2020-05-31] MEDS: TOLTERODINE (DETROL) 2 MG TAB PO SCH ×2 (10:01→20:27)
[2020-05-31] MEDS: TOPIRAMATE (TopAMAX) 100 MG TAB PO SCH ×2 (10:01→20:27)
[2020-05-31] MEDS: SERTRALINE HCL 50 MG TAB PO SCH (10:01)
[2020-05-31] MEDS: MIRALAX *UNIT DOSE* 17GM PACKET PO PRN (10:01)
[2020-05-31] MEDS: SENOKOT S TAB PO SCH ×2 (10:01→20:27)
[2020-05-31] MEDS: ACETAMINOPHEN TAB 650MG DOSE (2X325MG) PO PRN (14:52)
[2020-06-01 06:00] VITALS: BP 138/75
[2020-06-01] MEDS: HEPARIN SOD (PORCINE) 5000UNITS/ML 1ML VIAL/SYRINGE SC SCH ×3 (06:01→21:14)
[2020-06-01] MEDS: LEVOTHYROXINE 50MCG TABLET (0.05MG) PO SCH (06:01)
[2020-06-01] MEDS: CETIRIZINE (ZyrTEC) 10 MG TAB PO SCH (08:00)
[2020-06-01] MEDS: VITAMIN D (CHOLECALCIFEROL) 400 INTERNATIONAL UNITS TAB PO SCH (08:00)
[2020-06-01] MEDS: TOPIRAMATE (TopAMAX) 100 MG TAB PO SCH ×2 (08:00→20:38)
[2020-06-01] MEDS: SENOKOT S TAB PO SCH ×2 (08:00→20:39)
[2020-06-01] MEDS: SERTRALINE HCL 50 MG TAB PO SCH (08:00)
[2020-06-01] MEDS: TOLTERODINE (DETROL) 2 MG TAB PO SCH ×2 (08:00→20:39)
[2020-06-01] MEDS: levETIRAcetam 250MG TABLET (KEPPRA) PO SCH ×2 (08:01→20:38)
[2020-06-02 06:00] VITALS: BP 138/72
[2020-06-02] MEDS: LEVOTHYROXINE 50MCG TABLET (0.05MG) PO SCH (06:29)
[2020-06-02] MEDS: HEPARIN SOD (PORCINE) 5000UNITS/ML 1ML VIAL/SYRINGE SC SCH ×3 (06:30→21:43)
[2020-06-02] MEDS: CETIRIZINE (ZyrTEC) 10 MG TAB PO SCH (07:53)
[2020-06-02] MEDS: TOLTERODINE (DETROL) 2 MG TAB PO SCH ×2 (07:53→21:42)
[2020-06-02] MEDS: VITAMIN D (CHOLECALCIFEROL) 400 INTERNATIONAL UNITS TAB PO SCH (07:53)
[2020-06-02] MEDS: SERTRALINE HCL 50 MG TAB PO SCH (07:54)
[2020-06-02] MEDS: TOPIRAMATE (TopAMAX) 100 MG TAB PO SCH ×2 (07:54→21:42)
[2020-06-02] MEDS: SENOKOT S TAB PO SCH ×2 (07:54→21:42)
[2020-06-02] MEDS: levETIRAcetam 250MG TABLET (KEPPRA) PO SCH ×2 (07:54→21:42)
[2020-06-02] MEDS: ACETAMINOPHEN TAB 650MG DOSE (2X325MG) PO PRN (21:42)
[2020-06-03] MEDS: LEVOTHYROXINE 50MCG TABLET (0.05MG) PO SCH (05:28)
[2020-06-03] MEDS: HEPARIN SOD (PORCINE) 5000UNITS/ML 1ML VIAL/SYRINGE SC SCH ×3 (05:28→21:34)
[2020-06-03 06:00] VITALS: BP 139/72
[2020-06-03] MEDS: TOPIRAMATE (TopAMAX) 100 MG TAB PO SCH ×2 (08:32→21:33)
[2020-06-03] MEDS: levETIRAcetam 250MG TABLET (KEPPRA) PO SCH ×2 (08:32→21:33)
[2020-06-03] MEDS: SENOKOT S TAB PO SCH ×2 (08:32→21:33)
[2020-06-03] MEDS: CETIRIZINE (ZyrTEC) 10 MG TAB PO SCH (08:33)
[2020-06-03] MEDS: VITAMIN D (CHOLECALCIFEROL) 400 INTERNATIONAL UNITS TAB PO SCH (08:33)
[2020-06-03] MEDS: SERTRALINE HCL 50 MG TAB PO SCH (08:33)
[2020-06-03] MEDS: TOLTERODINE (DETROL) 2 MG TAB PO SCH ×2 (08:33→21:33)
[2020-06-04 06:00] VITALS: BP 119/59
[2020-06-04] MEDS: HEPARIN SOD (PORCINE) 5000UNITS/ML 1ML VIAL/SYRINGE SC SCH ×3 (06:08→21:02)
[2020-06-04] MEDS: LEVOTHYROXINE 50MCG TABLET (0.05MG) PO SCH (06:09)
[2020-06-04 07:30] LABS: BLOOD UREA NITROGEN 16 MG/DL (7-18); CALCIUM LEVEL 8.9 MG/DL (8.5-10.1); CARBON DIOXIDE LEVEL 22 MEQ/L (21-32); CHLORIDE LEVEL 107 MEQ/L (98-107); CREATININE FOR GFR 0.79 MG/DL (0.55-1.30); GLOMERULAR FILTRATION RATE > 60.0 (>51); GLUCOSE, FASTING 99 MG/DL (70-100); POTASSIUM SERUM 4.5 MEQ/L (3.5-5.1); SODIUM LEVEL 134 MEQ/L (136-145)
[2020-06-04 08:10] LABS: HEMOGLOBIN 13.6 g/dl (12.0-15.5); MEAN CORPUSCULAR HEMOGLOBIN 31.8 pg (27.0-33.0); MEAN CORPUSCULAR HGB CONC 33.2 g/dl (32.0-36.5); MEAN CORPUSCULAR VOLUME 95.8 fl (80.0-96.0); PLATELET COUNT, AUTOMATED 159 10^3/uL (150-450); RED BLOOD COUNT 4.28 10^6/uL (4.00-5.40); WHITE BLOOD COUNT 6.8 10^3/uL (4.0-10.0)
[2020-06-04] MEDS: TOPIRAMATE (TopAMAX) 100 MG TAB PO SCH ×2 (09:31→21:02)
[2020-06-04] MEDS: VITAMIN D (CHOLECALCIFEROL) 400 INTERNATIONAL UNITS TAB PO SCH (09:32)
[2020-06-04] MEDS: SERTRALINE HCL 50 MG TAB PO SCH (09:32)
[2020-06-04] MEDS: levETIRAcetam 250MG TABLET (KEPPRA) PO SCH ×2 (09:33→21:01)
[2020-06-04] MEDS: TOLTERODINE (DETROL) 2 MG TAB PO SCH ×2 (09:33→21:07)
[2020-06-04] MEDS: SENOKOT S TAB PO SCH ×2 (09:33→21:02)
[2020-06-04] MEDS: CETIRIZINE (ZyrTEC) 10 MG TAB PO SCH (09:33)
[2020-06-05 06:00] VITALS: BP 144/78
[2020-06-05] MEDS: HEPARIN SOD (PORCINE) 5000UNITS/ML 1ML VIAL/SYRINGE SC SCH ×3 (06:39→21:30)
[2020-06-05] MEDS: LEVOTHYROXINE 50MCG TABLET (0.05MG) PO SCH (06:39)
[2020-06-05] MEDS: SENOKOT S TAB PO SCH ×2 (09:40→21:30)
[2020-06-05] MEDS: TOPIRAMATE (TopAMAX) 100 MG TAB PO SCH ×2 (09:40→21:30)
[2020-06-05] MEDS: SERTRALINE HCL 50 MG TAB PO SCH (09:40)
[2020-06-05] MEDS: VITAMIN D (CHOLECALCIFEROL) 400 INTERNATIONAL UNITS TAB PO SCH (09:40)
[2020-06-05] MEDS: CETIRIZINE (ZyrTEC) 10 MG TAB PO SCH (09:40)
[2020-06-05] MEDS: TOLTERODINE (DETROL) 2 MG TAB PO SCH ×2 (09:40→21:30)
[2020-06-05] MEDS: levETIRAcetam 250MG TABLET (KEPPRA) PO SCH ×2 (09:41→21:30)
[2020-06-05 19:40] VITALS: BP 104/56
[2020-06-06 04:24] VITALS: BP 132/74
[2020-06-06] MEDS: LEVOTHYROXINE 50MCG TABLET (0.05MG) PO SCH (06:26)
[2020-06-06] MEDS: HEPARIN SOD (PORCINE) 5000UNITS/ML 1ML VIAL/SYRINGE SC SCH ×3 (06:26→22:04)
[2020-06-06] MEDS: SENOKOT S TAB PO SCH ×2 (09:27→22:07)
[2020-06-06] MEDS: TOPIRAMATE (TopAMAX) 100 MG TAB PO SCH ×2 (09:27→22:06)
[2020-06-06] MEDS: SERTRALINE HCL 50 MG TAB PO SCH (09:27)
[2020-06-06] MEDS: levETIRAcetam 250MG TABLET (KEPPRA) PO SCH ×2 (09:27→22:07)
[2020-06-06] MEDS: VITAMIN D (CHOLECALCIFEROL) 400 INTERNATIONAL UNITS TAB PO SCH (09:27)
[2020-06-06] MEDS: CETIRIZINE (ZyrTEC) 10 MG TAB PO SCH (09:27)
[2020-06-06] MEDS: TOLTERODINE (DETROL) 2 MG TAB PO SCH ×2 (09:27→22:07)
[2020-06-06] MEDS: ACETAMINOPHEN TAB 650MG DOSE (2X325MG) PO PRN (22:05)
[2020-06-07] MEDS: HEPARIN SOD (PORCINE) 5000UNITS/ML 1ML VIAL/SYRINGE SC SCH ×3 (05:24→21:13)
[2020-06-07] MEDS: LEVOTHYROXINE 50MCG TABLET (0.05MG) PO SCH (05:24)
[2020-06-07 06:01] VITALS: BP 133/74
[2020-06-07] MEDS: CETIRIZINE (ZyrTEC) 10 MG TAB PO SCH (09:15)
[2020-06-07] MEDS: TOLTERODINE (DETROL) 2 MG TAB PO SCH ×2 (09:15→21:13)
[2020-06-07] MEDS: VITAMIN D (CHOLECALCIFEROL) 400 INTERNATIONAL UNITS TAB PO SCH (09:15)
[2020-06-07] MEDS: TOPIRAMATE (TopAMAX) 100 MG TAB PO SCH ×2 (09:15→21:14)
[2020-06-07] MEDS: levETIRAcetam 250MG TABLET (KEPPRA) PO SCH ×2 (09:15→21:14)
[2020-06-07] MEDS: SENOKOT S TAB PO SCH ×2 (09:16→21:14)
[2020-06-07] MEDS: SERTRALINE HCL 50 MG TAB PO SCH (09:16)
[2020-06-07] MEDS: haloperidoL 5 MG TAB PO SCH ×2 (11:06→18:09)
[2020-06-07] MEDS: ACETAMINOPHEN TAB 650MG DOSE (2X325MG) PO PRN (21:13)
[2020-06-08] MEDS: HEPARIN SOD (PORCINE) 5000UNITS/ML 1ML VIAL/SYRINGE SC SCH ×3 (05:43→20:36)
[2020-06-08] MEDS: LEVOTHYROXINE 50MCG TABLET (0.05MG) PO SCH (05:43)
[2020-06-08 06:00] VITALS: BP 120/64
[2020-06-08] MEDS: SENOKOT S TAB PO SCH ×2 (09:00→20:36)
[2020-06-08] MEDS: TOLTERODINE (DETROL) 2 MG TAB PO SCH ×2 (10:03→20:37)
[2020-06-08] MEDS: TOPIRAMATE (TopAMAX) 100 MG TAB PO SCH ×2 (10:03→20:37)
[2020-06-08] MEDS: VITAMIN D (CHOLECALCIFEROL) 400 INTERNATIONAL UNITS TAB PO SCH (10:03)
[2020-06-08] MEDS: CETIRIZINE (ZyrTEC) 10 MG TAB PO SCH (10:04)
[2020-06-08] MEDS: levETIRAcetam 250MG TABLET (KEPPRA) PO SCH ×2 (10:04→20:36)
[2020-06-08] MEDS: haloperidoL 5 MG TAB PO SCH ×2 (10:04→20:36)
[2020-06-08] MEDS: SERTRALINE HCL 50 MG TAB PO SCH (10:04)
[2020-06-08] MEDS: ACETAMINOPHEN TAB 650MG DOSE (2X325MG) PO PRN (20:36)
[2020-06-09] MEDS: HEPARIN SOD (PORCINE) 5000UNITS/ML 1ML VIAL/SYRINGE SC SCH ×3 (06:10→21:27)
[2020-06-09] MEDS: LEVOTHYROXINE 50MCG TABLET (0.05MG) PO SCH (06:11)
[2020-06-09 06:39] VITALS: BP 117/63
[2020-06-09] MEDS: levETIRAcetam 250MG TABLET (KEPPRA) PO SCH ×2 (10:03→21:23)
[2020-06-09] MEDS: CETIRIZINE (ZyrTEC) 10 MG TAB PO SCH (10:03)
[2020-06-09] MEDS: SERTRALINE HCL 50 MG TAB PO SCH (10:03)
[2020-06-09] MEDS: haloperidoL 5 MG TAB PO SCH (10:03)
[2020-06-09] MEDS: SENOKOT S TAB PO SCH ×2 (10:03→21:24)
[2020-06-09] MEDS: TOLTERODINE (DETROL) 2 MG TAB PO SCH ×2 (10:04→21:25)
[2020-06-09] MEDS: VITAMIN D (CHOLECALCIFEROL) 400 INTERNATIONAL UNITS TAB PO SCH (10:04)
[2020-06-09] MEDS: TOPIRAMATE (TopAMAX) 100 MG TAB PO SCH ×2 (10:05→21:24)
--- NOTE | 2020-06-09 13:43 | IPNPDOC ---
Text Note Date of Service The patient was seen on 06/09/20. NOTE Hospitalist Progress Note Subjective: The patient is very talkative, but when I ask her how she is feeling she smiles at me and states that she is feeling okay. Otherwise, she really does not answer any other questions, and review of systems is unobtainable. Objective: General: Awake, alert. She does not appear to be in any acute distress at this time. She just finished eating her breakfast HEENT: Head normocephalic, atraumatic, sclera are nonicteric. Hearing is grossly intact to conversation. Respiratory: Clear to auscultation bilaterally with no wheezes, rales, or rhonchi. Cardiovascular: Regular rate and rhythm, with no rubs, gallops, or murmur. Abdomen: Soft, nontender, obese, nondistended, no hepatosplenomegaly appreciated. Bowel sounds present. Extremities: 2+ pulses in the radial and dorsalis pedis bilaterally. No evidence of clubbing or cyanosis. Assessment: Cognitive impairment Hx Seizure disorder Multiple falls at home Aggressive behavior Subclinical hypothyroidism Urinary incontinence Degenerative disc disease Morbid obesity Overactive bladder Rhabdomyolysis-resolved Cholelithiasis with biliary colic-resolved Plan: She was going to be discharged on 05/30/2020, however it appears that the facility where she was going to did not have enough supportive care for her, therefore her discharge is now delayed. She is awaiting placement at a more appropriate facility. There has not been any acute issues in the interim since her last progress note. All of her medications were reviewed today, she has not had a dose of Ativan since 05/26/2020, therefore this will be discontinued. Otherwise, no additional changes to her medical regimen at this time. If an appropriate bed does become available, only progress note will be required, please see discharge summary from 05/30/2020 VS,Fishbone, I+O VS, Fishbone, I+O Vital Signs Date Time Temp Pulse Resp B/P (MAP) Pulse Ox O2 Delivery O2 Flow Rate FiO2 06/09/20 06:39 97.9 71 18 117/63 (81) 95 Room Air I&O- Last 24 Hours up to 6 AM 06/09/20 06:00 Intake Total 1065 ml Output Total 0 ml Balance 1065 ml KIM ALDANA DO Jun 09, 2020 13:43
[2020-06-09] MEDS: ACETAMINOPHEN TAB 650MG DOSE (2X325MG) PO PRN (21:25)
[2020-06-10 06:00] VITALS: BP 139/74
[2020-06-10] MEDS: HEPARIN SOD (PORCINE) 5000UNITS/ML 1ML VIAL/SYRINGE SC SCH ×3 (06:06→21:41)
[2020-06-10] MEDS: LEVOTHYROXINE 50MCG TABLET (0.05MG) PO SCH (06:06)
[2020-06-10] MEDS: SENOKOT S TAB PO SCH ×2 (09:00→21:42)
[2020-06-10] MEDS: TOLTERODINE (DETROL) 2 MG TAB PO SCH ×2 (09:22→21:42)
[2020-06-10] MEDS: levETIRAcetam 250MG TABLET (KEPPRA) PO SCH ×2 (09:22→21:42)
[2020-06-10] MEDS: TOPIRAMATE (TopAMAX) 100 MG TAB PO SCH ×2 (09:22→21:42)
[2020-06-10] MEDS: SERTRALINE HCL 50 MG TAB PO SCH (09:22)
[2020-06-10] MEDS: CETIRIZINE (ZyrTEC) 10 MG TAB PO SCH (09:22)
[2020-06-10] MEDS: VITAMIN D (CHOLECALCIFEROL) 400 INTERNATIONAL UNITS TAB PO SCH (09:22)
[2020-06-10] MEDS: MIRALAX *UNIT DOSE* 17GM PACKET PO SCH (21:58)
[2020-06-11 06:00] VITALS: BP 155/96
[2020-06-11] MEDS: LEVOTHYROXINE 50MCG TABLET (0.05MG) PO SCH (06:13)
[2020-06-11] MEDS: HEPARIN SOD (PORCINE) 5000UNITS/ML 1ML VIAL/SYRINGE SC SCH ×3 (06:13→22:01)
[2020-06-11 07:22] LABS: HEMATOCRIT 45.1 % (36.0-47.0); HEMOGLOBIN 15.1 g/dl (12.0-15.5); MEAN CORPUSCULAR HEMOGLOBIN 31.7 pg (27.0-33.0); MEAN CORPUSCULAR HGB CONC 33.5 g/dl (32.0-36.5); MEAN CORPUSCULAR VOLUME 94.7 fl (80.0-96.0); PLATELET COUNT, AUTOMATED 148 10^3/uL (150-450); RED BLOOD COUNT 4.76 10^6/uL (4.00-5.40); WHITE BLOOD COUNT 7.7 10^3/uL (4.0-10.0)
[2020-06-11 07:54] LABS: BLOOD UREA NITROGEN 21 MG/DL (7-18); CALCIUM LEVEL 9.2 MG/DL (8.5-10.1); CARBON DIOXIDE LEVEL 22 MEQ/L (21-32); CHLORIDE LEVEL 105 MEQ/L (98-107); CREATININE FOR GFR 0.78 MG/DL (0.55-1.30); GLOMERULAR FILTRATION RATE > 60.0 (>51); GLUCOSE, FASTING 97 MG/DL (70-100); POTASSIUM SERUM 4.5 MEQ/L (3.5-5.1); SODIUM LEVEL 136 MEQ/L (136-145)
[2020-06-11] MEDS: levETIRAcetam 250MG TABLET (KEPPRA) PO SCH ×2 (09:19→20:42)
[2020-06-11] MEDS: CETIRIZINE (ZyrTEC) 10 MG TAB PO SCH (09:19)
[2020-06-11] MEDS: SERTRALINE HCL 50 MG TAB PO SCH (09:19)
[2020-06-11] MEDS: TOLTERODINE (DETROL) 2 MG TAB PO SCH ×2 (09:19→20:42)
[2020-06-11] MEDS: SENOKOT S TAB PO SCH ×2 (09:20→20:42)
[2020-06-11] MEDS: TOPIRAMATE (TopAMAX) 100 MG TAB PO SCH ×2 (09:20→20:42)
[2020-06-11] MEDS: VITAMIN D (CHOLECALCIFEROL) 400 INTERNATIONAL UNITS TAB PO SCH (11:12)
[2020-06-11] MEDS: CIPROFLOXACIN 500MG TABLET PO SCH (12:18)
[2020-06-11] MEDS: MIRALAX *UNIT DOSE* 17GM PACKET PO SCH (20:42)
[2020-06-11] MEDS: ACETAMINOPHEN TAB 650MG DOSE (2X325MG) PO PRN (20:43)
[2020-06-12] MEDS: CIPROFLOXACIN 500MG TABLET PO SCH ×2 (05:44→20:49)
[2020-06-12] MEDS: HEPARIN SOD (PORCINE) 5000UNITS/ML 1ML VIAL/SYRINGE SC SCH ×3 (05:44→20:29)
[2020-06-12] MEDS: LEVOTHYROXINE 50MCG TABLET (0.05MG) PO SCH (05:44)
[2020-06-12 06:00] VITALS: BP 135/78
[2020-06-12] MEDS: levETIRAcetam 250MG TABLET (KEPPRA) PO SCH ×2 (08:21→20:29)
[2020-06-12] MEDS: SERTRALINE HCL 50 MG TAB PO SCH (08:22)
[2020-06-12] MEDS: SENOKOT S TAB PO SCH ×2 (08:22→20:29)
[2020-06-12] MEDS: TOPIRAMATE (TopAMAX) 100 MG TAB PO SCH ×2 (08:22→20:30)
[2020-06-12] MEDS: CETIRIZINE (ZyrTEC) 10 MG TAB PO SCH (08:22)
[2020-06-12] MEDS: VITAMIN D (CHOLECALCIFEROL) 400 INTERNATIONAL UNITS TAB PO SCH (08:22)
[2020-06-12] MEDS: TOLTERODINE (DETROL) 2 MG TAB PO SCH ×2 (08:22→20:29)
[2020-06-12] MEDS: MIRALAX *UNIT DOSE* 17GM PACKET PO SCH (20:29)
[2020-06-13] MEDS: LEVOTHYROXINE 50MCG TABLET (0.05MG) PO SCH (05:53)
[2020-06-13] MEDS: CIPROFLOXACIN 500MG TABLET PO SCH ×2 (05:53→15:54)
[2020-06-13] MEDS: HEPARIN SOD (PORCINE) 5000UNITS/ML 1ML VIAL/SYRINGE SC SCH ×3 (05:53→20:53)
[2020-06-13 06:00] VITALS: BP 135/79
[2020-06-13] MEDS: TOLTERODINE (DETROL) 2 MG TAB PO SCH ×2 (08:38→20:53)
[2020-06-13] MEDS: SENOKOT S TAB PO SCH ×2 (08:38→20:53)
[2020-06-13] MEDS: VITAMIN D (CHOLECALCIFEROL) 400 INTERNATIONAL UNITS TAB PO SCH (08:38)
[2020-06-13] MEDS: SERTRALINE HCL 50 MG TAB PO SCH (08:38)
[2020-06-13] MEDS: CETIRIZINE (ZyrTEC) 10 MG TAB PO SCH (08:38)
[2020-06-13] MEDS: TOPIRAMATE (TopAMAX) 100 MG TAB PO SCH ×2 (08:38→20:53)
[2020-06-13] MEDS: levETIRAcetam 250MG TABLET (KEPPRA) PO SCH ×2 (08:38→20:53)
[2020-06-13] MEDS ORDERED: BISACODYL 10 MG SUPP PR PRN (15:30)
--- NOTE | 2020-06-13 15:31 | IPNPDOC ---
Text Note Date of Service The patient was seen on 06/12/20. NOTE Subjective: Patient is awake and alert, cooperative, slow to answer questions. Having breakfast, complains of Back pain and constipation. Objective: General: Awake, alert. She does not appear to be in any acute distress at this time. HEENT: Head normocephalic, atraumatic, sclera are nonicteric. Hearing is grossly intact to conversation. Neck: supple, no JVD Respiratory: Clear to auscultation bilaterally with no wheezes, rales, or rhonchi. Cardiovascular: Regular rate and rhythm, with no rubs, gallops, or murmur. Abdomen: Soft, nontender, obese, nondistended, no hepatosplenomegaly appreciated. Bowel sounds present. Extremities: 2+ pulses in the radial and dorsalis pedis bilaterally. No evidence of clubbing or cyanosis. Assessment: Patient is a 55-year-old female with a PMHx of Cognitive impairment with behavioral issues (cared for by he Mother), Seizure disorder, Subclinical hypothyroidism, Urinary incontinence, Degenerative disc disease, Cholelithiasis with biliary colic, Morbid obesity , who presented to the emergency room after she had fallen several times at home. Patient was admitted to hospitalist service on 05/11 with complaints that abdominal pain. That was evaluated and found to be secondary to cholelithiasis and possible biliary colic. Patient was later transferred to the inpatient mental health unit on 05/12 because of aggression and behavioral problems. Patient was ultimately discharged from inpatient mental health unit on 05/15. Social workers and case management had been working on placement and ultimately did find a solution prior to discharge, however, patients mother was adamant about taking her home. Patients mother/glost tile sorter had indicated at that time that she was capable of caring for her mentally challenged daughter. She was back in the ED 4 days after her discharge after multiple falls at home. Patient was found to have bruising of her elbows and knees. Patient reported that shes been crawling around at home. Patient indicated that her mother is unable to care for her. Patient is no w waiting for long term care phlebotomist NH placement. Assessment : UTI Moderate Mental retardation with behavioral issues. Seizure disorder focal partial and simple partial seizures. Multiple falls at home Rhabdomyolysis-resolved Cholelithiasis with biliary colic-resolved Hypothyroidism Urinary incontinence Degenerative disc disease Overactive bladder Morbid obesity Plan: UTi proteus in culture started on ciprofloaxin Moderate Mental retardation with behavioral issues. on zoloft and haloperidol She was going to be discharged on 05/30/2020, however it appears that the facility where she was going to did not have enough supportive care for her, therefore her discharge is now delayed. She is awaiting placement at a more appropriate facility. Seizure disorder keppra, topamax Hypothyroid synthroid Overactive Bladder tolterodine. Constipation aggressive bowel regimen including lactulose. DVT prophylaxis in place. VS,Fishbone, I+O VS, Fishbone, I+O Vital Signs Date Time Temp Pulse Resp B/P (MAP) Pulse Ox O2 Delivery O2 Flow Rate FiO2 06/12/20 06:00 98.1 80 14 135/78 (97) 94 Room Air I&O- Last 24 Hours up to 6 AM 06/12/20 06:59 Intake Total 720 ml Output Total 0 ml Balance 720 ml TALIA REGALADO MD Jun 12, 2020 20:39
[2020-06-13] MEDS: LACTULOSE 20 GM/30 ML SYRUP UD PO SCH ×2 (15:54→20:52)
[2020-06-13] MEDS: MIRALAX *UNIT DOSE* 17GM PACKET PO SCH (20:53)
[2020-06-14 05:46] VITALS: BP 117/66
[2020-06-14] MEDS: HEPARIN SOD (PORCINE) 5000UNITS/ML 1ML VIAL/SYRINGE SC SCH ×3 (05:47→22:12)
[2020-06-14] MEDS: CIPROFLOXACIN 500MG TABLET PO SCH ×2 (05:47→17:45)
[2020-06-14] MEDS: LEVOTHYROXINE 50MCG TABLET (0.05MG) PO SCH (05:47)
[2020-06-14] MEDS: SERTRALINE HCL 50 MG TAB PO SCH (07:57)
[2020-06-14] MEDS: levETIRAcetam 250MG TABLET (KEPPRA) PO SCH ×2 (07:57→22:10)
[2020-06-14] MEDS: VITAMIN D (CHOLECALCIFEROL) 400 INTERNATIONAL UNITS TAB PO SCH (07:58)
[2020-06-14] MEDS: TOLTERODINE (DETROL) 2 MG TAB PO SCH ×2 (07:58→22:10)
[2020-06-14] MEDS: SENOKOT S TAB PO SCH ×2 (07:58→21:00)
[2020-06-14] MEDS: TOPIRAMATE (TopAMAX) 100 MG TAB PO SCH ×2 (07:58→22:11)
[2020-06-14] MEDS: CETIRIZINE (ZyrTEC) 10 MG TAB PO SCH (07:59)
[2020-06-14] MEDS: LACTULOSE 20 GM/30 ML SYRUP UD PO SCH ×3 (07:59→22:10)
[2020-06-14] MEDS: MIRALAX *UNIT DOSE* 17GM PACKET PO SCH (22:10)
[2020-06-15 05:44] VITALS: BP 124/65
[2020-06-15] MEDS: LEVOTHYROXINE 50MCG TABLET (0.05MG) PO SCH (06:05)
[2020-06-15] MEDS: CIPROFLOXACIN 500MG TABLET PO SCH (06:06)
[2020-06-15] MEDS: HEPARIN SOD (PORCINE) 5000UNITS/ML 1ML VIAL/SYRINGE SC SCH ×3 (06:07→22:55)
[2020-06-15] MEDS: LACTULOSE 20 GM/30 ML SYRUP UD PO SCH ×3 (10:10→22:52)
[2020-06-15] MEDS: SENOKOT S TAB PO SCH ×2 (10:10→22:56)
[2020-06-15] MEDS: levETIRAcetam 250MG TABLET (KEPPRA) PO SCH ×2 (10:10→22:55)
[2020-06-15] MEDS: TOLTERODINE (DETROL) 2 MG TAB PO SCH ×2 (10:10→22:56)
[2020-06-15] MEDS: CETIRIZINE (ZyrTEC) 10 MG TAB PO SCH (10:10)
[2020-06-15] MEDS: ACETAMINOPHEN TAB 650MG DOSE (2X325MG) PO PRN (10:11)
[2020-06-15] MEDS: SERTRALINE HCL 50 MG TAB PO SCH (10:11)
[2020-06-15] MEDS: VITAMIN D (CHOLECALCIFEROL) 400 INTERNATIONAL UNITS TAB PO SCH (10:11)
[2020-06-15] MEDS: TOPIRAMATE (TopAMAX) 100 MG TAB PO SCH ×2 (10:11→22:56)
--- NOTE | 2020-06-15 12:59 | IPNPDOC ---
Text Note Date of Service The patient was seen on 06/15/20. NOTE Subjective: Patient is awake and cooperative, However seems to be very slow today with drooling of saliva. Not much oral intake. Slow to answer questions. complains of Back pain and constipation. Has not had a documented bowel movement in 10 days. Has a low grade fever of 100.1. Denies any dysuria. DOes complain of abdominal pain and distention and no appetite. Objective: General: Awake, alert. She does not appear to be in any acute distress at this time. HEENT: Head normocephalic, atraumatic, sclera are nonicteric. Hearing is grossly intact to conversation. Neck: supple, no JVD Respiratory: Clear to auscultation bilaterally with no wheezes, rales, or rhonchi. Cardiovascular: Regular rate and rhythm, with no rubs, gallops, or murmur. Abdomen: Soft, nontender, obese, nondistended, no hepatosplenomegaly appreciated. Bowel sounds present. Extremities: 2+ pulses in the radial and dorsalis pedis bilaterally. No evidence of clubbing or cyanosis. Assessment: Patient is a 55-year-old female with a PMHx of Cognitive impairment with behavioral issues (cared for by he Mother), Seizure disorder, Subclinical hypothyroidism, Urinary incontinence, Degenerative disc disease, Cholelithiasis with biliary colic, Morbid obesity , who presented to the emergency room after she had fallen several times at home. Patient was admitted to hospitalist service on 05/11 with complaints that abdominal pain. That was evaluated and found to be secondary to cholelithiasis and possible biliary colic. Patient was later transferred to the inpatient mental health unit on 05/12 because of aggression and behavioral problems. Patient was ultimately discharged from inpatient mental health unit on 05/15. Social workers and case management had been working on placement and ultimately did find a solution prior to discharge, however, patients mother was adamant about taking her home. Patients mother/wood panel inspector had indicated at that time that she was capable of caring for her mentally challenged daughter. She was back in the ED 4 days after her discharge after multiple falls at home. Patient was found to have bruising of her elbows and knees. Patient reported that shes been crawling around at home. Patient indicated that her mother is unable to care for her. Patient is now waiting for termination clerk NH placement. Assessment : Increasing slowness and somnolence Low grade Fever Severe constipation. UTI treated Moderate Mental retardation with behavioral issues. Seizure disorder focal partial and simple partial seizures. Multiple falls at home Rhabdomyolysis-resolved Cholelithiasis with biliary colic-resolved Hypothyroidism Urinary incontinence Degenerative disc disease Overactive bladder Morbid obesity Plan: UTI probably cystitis finished 3 days of ciprofloxacin will stop Increasing somnolence and slowing will hold psychiatric meds or 2 days. Cipro stopped. Low grade fever will monitor if spikes higher temp will get cxr, blood cultures . will get Labs today. Rule out any electrolyte abnormality Moderate Mental retardation with behavioral issues. on zoloft and haloperidol will hold for 2 days as seems to be getting slower and sedated. May be some drug interaction with ciprofloxacin which she was getting. will get EKG for Qtc. She was going to be discharged on 05/30/2020, however it appears that the facility where she was going to did not have enough supportive care for her, therefore her discharge is now delayed. She is awaiting placement at a more appropriate facility. Seizure disorder keppra, topamax Hypothyroid synthroid Overactive Bladder tolterodine. Constipation aggressive bowel regimen including lactulose, dulcolax suppository , senna and colace, miralax. If no response by this afternoon will give enema DVT prophylaxis in place. VS,Fishbone, I+O VS, Fishbone, I+O Vital Signs Date Time Temp Pulse Resp B/P (MAP) Pulse Ox O2 Delivery O2 Flow Rate FiO2 06/15/20 05:44 100.1 83 20 124/65 (84) 97 Room Air I&O- Last 24 Hours up to 6 AM 06/15/20 06:00 Intake Total 250 ml Balance 250 ml TALIA REGALADO MD Jun 15, 2020 12:59
[2020-06-15 13:38] LABS: BASO # 0.1 10^3/uL (0.0-0.2); BASO % 0.8 % (0.0-1.0); EOS # 0.1 10^3/uL (0.0-0.5); EOS % 1.5 % (0.0-3.0); HEMATOCRIT 47.6 % (36.0-47.0); HEMOGLOBIN 16.2 g/dl (12.0-15.5); LYMPH # 1.4 10^3/uL (1.5-5.0); MEAN CORPUSCULAR HEMOGLOBIN 32.1 pg (27.0-33.0); MEAN CORPUSCULAR VOLUME 94.4 fl (80.0-96.0); MONO # 0.7 10^3/uL (0.0-0.8); MONO % 7.6 % (0.0-5.0); PLATELET COUNT, AUTOMATED 206 10^3/uL (150-450); RED BLOOD COUNT 5.04 10^6/uL (4.00-5.40); WHITE BLOOD COUNT 9.4 10^3/uL (4.0-10.0)
[2020-06-15 13:59] LABS: BLOOD UREA NITROGEN 17 MG/DL (7-18); CALCIUM LEVEL 9.2 MG/DL (8.5-10.1); CARBON DIOXIDE LEVEL 21 MEQ/L (21-32); CHLORIDE LEVEL 105 MEQ/L (98-107); CREATININE FOR GFR 0.86 MG/DL (0.55-1.30); GLOMERULAR FILTRATION RATE > 60.0 (>51); GLUCOSE, FASTING 122 MG/DL (70-100); POTASSIUM SERUM 4.5 MEQ/L (3.5-5.1); SODIUM LEVEL 137 MEQ/L (136-145)
--- NOTE | 2020-06-15 17:08 | ECGEPIP ---
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 POSSIBLE SEPTAL MYOCARDIAL INFARCTION, PROBABLY OLD T wave abnormality secondary to Right bundle branch block & RVH. Increased heart rate compared with 05/19/2020. Electronically Signed on 06-15-2020 17:08:34 EDT by Caio Edward
[2020-06-15] MEDS: MIRALAX *UNIT DOSE* 17GM PACKET PO SCH (22:52)
[2020-06-16 05:44] VITALS: BP 119/67
[2020-06-16] MEDS: LEVOTHYROXINE 50MCG TABLET (0.05MG) PO SCH ×2 (06:00→06:15)
[2020-06-16] MEDS: HEPARIN SOD (PORCINE) 5000UNITS/ML 1ML VIAL/SYRINGE SC SCH ×3 (06:15→21:59)
[2020-06-16] MEDS: levETIRAcetam 250MG TABLET (KEPPRA) PO SCH ×2 (09:15→21:58)
[2020-06-16] MEDS: VITAMIN D (CHOLECALCIFEROL) 400 INTERNATIONAL UNITS TAB PO SCH (09:16)
[2020-06-16] MEDS: TOPIRAMATE (TopAMAX) 100 MG TAB PO SCH ×2 (09:16→21:58)
[2020-06-16] MEDS: CETIRIZINE (ZyrTEC) 10 MG TAB PO SCH (09:16)
[2020-06-16] MEDS: LACTULOSE 20 GM/30 ML SYRUP UD PO SCH ×3 (09:16→21:58)
[2020-06-16] MEDS: TOLTERODINE (DETROL) 2 MG TAB PO SCH ×2 (09:16→21:58)
[2020-06-16] MEDS: SENOKOT S TAB PO SCH ×2 (09:16→21:58)
--- NOTE | 2020-06-16 12:04 | IPNPDOC ---
Text Note Date of Service The patient was seen on 06/16/20. NOTE Subjective: Patient is awake but falling asleep during rounds. Speaks only 1 or 2 words. As per nurses has not been eating last 2 days. Decreased generalized mobility. Se keeps her head turned towards the left with drooling from the left. I am not sure if this mental status change is due to the high doses of haldol that she was getting previously / behavioural or she has suffered a neurological event in the interim period. Will get a CT head. No fever this am. Objective: Vitals : As below General: Awake, alert. She does not appear to be in any acute distress at this time. HEENT: Head normocephalic, atraumatic, sclera are nonicteric. Hearing is grossly intact to conversation. Neck: supple, no JVD Respiratory: Clear to auscultation bilaterally with no wheezes, rales, or rhonchi. Cardiovascular: Regular rate and rhythm, with no rubs, gallops, or murmur. Abdomen: Soft, nontender, obese, nondistended, no hepatosplenomegaly appreciated. Bowel sounds present. Extremities: 2+ pulses in the radial and dorsalis pedis bilaterally. No evidence of clubbing or cyanosis. Labs an radiology: reviewed. Patient is a 55-year-old female with a PMHx of Cognitive impairment with behavioral issues (cared for by he Mother), Seizure disorder, Subclinical hypothyroidism, Urinary incontinence, Degenerative disc disease, Cholelithiasis with biliary colic, Morbid obesity , who presented to the emergency room after she had fallen several times at home. Patient was admitted to hospitalist service on 05/11 with complaints that abdominal pain. That was evaluated and fou nd to be secondary to cholelithiasis and possible biliary colic. Patient was later transferred to the inpatient mental health unit on 05/12 because of aggression and behavioral problems. Patient was ultimately discharged from inpatient mental health unit on 05/15. Social workers and case management had been working on placement and ultimately did find a solution prior to discharge, however, patients mother was adamant about taking her home. Patients mother/flight paramedic had indicated at that time that she was capable of caring for her mentally challenged daughter. She was back in the ED 4 days after her discharge after multiple falls at home. Patient was found to have bruising of her elbows and knees. Patient reported that shes been crawling around at home. Patient indicated that her mother is unable to care for her. Patient is now waiting for [facility] placement. Assessments: Acute Metabolic encephalopathy Severe constipation. UTI treated Moderate Mental retardation with behavioral issues. Seizure disorder focal partial and simple partial seizures. Multiple falls at home Rhabdomyolysis-resolved Cholelithiasis with biliary colic-resolved Hypothyroidism Urinary incontinence Degenerative disc disease Overactive bladder Morbid obesity Plan: Acute metabolic encephalopathy unsure if due to medications or a neurological event has occurred. No signs of infection will get a CT head. Increasing slowness and somnolence poor oral intake over the last 3 days. will stop haloperidol and sertraline for now. UTI probably cystitis finished 3 days of ciprofloxacin Moderate Mental retardation with behavioral issues. now too somnolent. will stop zoloft 50 mg and haloperidol 2mg She was going to be discharged on 05/30/2020, however it appears that the facility where she was going to did not have enough supportive care for her, therefore her discharge is now delayed. She is awaiting placement at a more appropriate facility. Seizure disorder keppra, topamax Hypothyroid synthroid Overactive Bladder tolterodine. Constipation aggressive bowel regimen including lactulose, dulcolax suppository , senna and colace, miralax. If no response by this afternoon will give enema DVT prophylaxis in place. VS,Fishbone, I+O VS, Fishbone, I+O Laboratory Tests 06/15/20 13:14 Vital Signs Date Time Temp Pulse Resp B/P (MAP) Pulse Ox O2 Delivery O2 Flow Rate FiO2 06/16/20 05:44 99.4 75 20 119/67 (84) 96 Room Air I&O- Last 24 Hours up to 6 AM 06/16/20 06:00 Intake Total 1060 ml Balance 1060 ml TALIA REGALADO MD Jun 16, 2020 12:04
[2020-06-16] MEDS ORDERED: FLEET ENEMA PR ONE (13:00)
[2020-06-16] MEDS ORDERED: BISACODYL 10 MG SUPP PR ONE (13:30)
--- NOTE | 2020-06-16 15:04 | REP ---
REASON: Altered mental status. COMPARISON: 05/19/2020, which was normal. Ventricles and sulci are unchanged. The deep cerebral white matter is unchanged. There is no shift of the midline structures. There are no extra-axial fluid collections. There is no evidence of an acute intracranial hemorrhagic or nonhemorrhagic event. IMPRESSION: No change from 05/19/2020. No evidence of acute disease. Electronically Signed by Phill Nixon DO 06/16/2020 04:27 P
[2020-06-16] MEDS ORDERED: BISACODYL 10 MG SUPP PR PRN (16:45)
[2020-06-16] MEDS: MIRALAX *UNIT DOSE* 17GM PACKET PO SCH (21:00)
[2020-06-17 05:38] VITALS: BP 113/64
[2020-06-17] MEDS: LEVOTHYROXINE 50MCG TABLET (0.05MG) PO SCH (06:02)
[2020-06-17] MEDS: HEPARIN SOD (PORCINE) 5000UNITS/ML 1ML VIAL/SYRINGE SC SCH ×3 (06:02→20:51)
[2020-06-17] MEDS: TOLTERODINE (DETROL) 2 MG TAB PO SCH ×2 (08:42→20:57)
[2020-06-17] MEDS: TOPIRAMATE (TopAMAX) 100 MG TAB PO SCH ×2 (08:42→20:52)
[2020-06-17] MEDS: CETIRIZINE (ZyrTEC) 10 MG TAB PO SCH (08:42)
[2020-06-17] MEDS: LACTULOSE 20 GM/30 ML SYRUP UD PO SCH ×3 (08:42→20:51)
[2020-06-17] MEDS: VITAMIN D (CHOLECALCIFEROL) 400 INTERNATIONAL UNITS TAB PO SCH (08:42)
[2020-06-17] MEDS: SENOKOT S TAB PO SCH ×2 (08:43→20:53)
[2020-06-17] MEDS: levETIRAcetam 250MG TABLET (KEPPRA) PO SCH ×2 (08:43→20:52)
--- NOTE | 2020-06-17 12:38 | IPNPDOC ---
Text Note Date of Service The patient was seen on 06/17/20. NOTE Subjective: Patient is awake but falling asleep during rounds. Speaks few words seems a little less somnolent today. She is eating breakfast however looks like having difficulty in managing the cutlery and making mess. Over this week patient has been noted to be very somnolent and constipated. Her haloperidol and sertraline was stopped. Objective: Vitals as below General: Awake, but somnolent. She does not appear to be in any acute distress at this time. HEENT: Head normocephalic, atraumatic, sclera are nonicteric. Neck: supple, no JVD Respiratory: Clear to auscultation bilaterally with no wheezes, rales, or rhonchi. Cardiovascular: Regular rate and rhythm, with no rubs, gallops, or murmur. Abdomen: Soft, nontender, obese, nondistended, no hepatosplenomegaly appreciated. Bowel sounds present. Extremities: 2+ pulses in the radial and dorsalis pedis bilaterally. No evidence of clubbing or cyanosis. Labs an radiology: reviewed. Patient is a 55-year-old female with a PMHx of Cognitive impairment with behavioral issues (cared for by he Mother), Seizure disorder, Subclinical hypothyroidism, Urinary incontinence, Degenerative disc disease, Cholelithiasis with biliary colic, Morbid obesity , who presented to the emergency room after she had fallen several times at home. Patient was admitted to hospitalist service on 05/11 with complaints that abdominal pain. That was evaluated and found to be secondary to cholelithiasis and possible biliary colic. Patient was later transferred to the inpatient mental health unit on 05/12 because of aggression and behavioral problems. Patient was ultimately discharged from inpatient mental health unit on 05/15. Social workers and case management had been working on placement and ultimately did find a solution prior to discharge, however, patients mother was adamant about taking her home. Patients mother/painter and paperhanger apprentice had indicated at that time that she was capable of caring for her mentally challenged daughter. She was back in the ED 4 days after her discharge after multiple falls at home. Patient was found to have bruising of her elbows and knees. Patient reported that shes been crawling around at home. Patient indicated that her mother is unable to care for her. Patient is now waiting for intermediate NH placement. Over this week patient has been noted to be very somnolent and constipated. Her haloperidol and sertraline was stopped. Assessments: Acute Metabolic encephalopathy Severe constipation. UTI treated Moderate Mental retardation with behavioral issues. Seizure disorder focal partial and simple partial seizures. Multiple falls at home Rhabdomyolysis-resolved Cholelithiasis with biliary colic-resolved Hypothyroidism Urinary incontinence Degenerative disc disease Overactive bladder Morbid obesity Plan: Acute metabolic encephalopathy Increasing slowness and somnolence poor oral intake over the last 3 days. probably medications Haldol and sertraline CT head no abnormality. No signs of infection. UTI probably cystitis finished 3 days of ciprofloxacin Moderate Mental retardation with behavioral issues. now too somnolent. stopped zoloft 50 mg and haloperidol 2mg She was going to be discharged on 05/30/2020, however it appears that the facility where she was going to did not have enough supportive care for her, therefore her discharge is now delayed. She is awaiting placement at a more appropriate facility. Seizure disorder keppra, topamax Hypothyroid synthroid Overactive Bladder tolterodine. Constipation aggressive bowel regimen including lactulose, dulcolax suppository , senna and colace, miralax. If no response by this afternoon will give enema DVT prophylaxis in place. VS,Fishbone, I+O VS, Fishbone, I+O Vital Signs Date Time Temp Pulse Resp B/P (MAP) Pulse Ox O2 Delivery O2 Flow Rate FiO2 06/17/20 05:38 98.9 80 20 113/64 (80) 97 Room Air I&O- Last 24 Hours up to 6 AM 06/17/20 05:59 Intake Total 1140 ml Output Total 0 ml Balance 1140 ml TALIA REGALADO MD Jun 17, 2020 12:38
[2020-06-17] MEDS: MIRALAX *UNIT DOSE* 17GM PACKET PO SCH (20:51)
[2020-06-17] MEDS: ACETAMINOPHEN TAB 650MG DOSE (2X325MG) PO PRN (20:52)
[2020-06-18] MEDS: HEPARIN SOD (PORCINE) 5000UNITS/ML 1ML VIAL/SYRINGE SC SCH ×3 (05:38→21:11)
[2020-06-18] MEDS: LEVOTHYROXINE 50MCG TABLET (0.05MG) PO SCH (05:38)
[2020-06-18 06:00] VITALS: BP 132/86
[2020-06-18 07:39] LABS: HEMATOCRIT 45.9 % (36.0-47.0); HEMOGLOBIN 15.4 g/dl (12.0-15.5); MEAN CORPUSCULAR HEMOGLOBIN 31.6 pg (27.0-33.0); MEAN CORPUSCULAR HGB CONC 33.6 g/dl (32.0-36.5); MEAN CORPUSCULAR VOLUME 94.1 fl (80.0-96.0); PLATELET COUNT, AUTOMATED 180 10^3/uL (150-450); RED BLOOD COUNT 4.88 10^6/uL (4.00-5.40); WHITE BLOOD COUNT 8.6 10^3/uL (4.0-10.0)
[2020-06-18 08:05] LABS: BLOOD UREA NITROGEN 15 MG/DL (7-18); CALCIUM LEVEL 9.2 MG/DL (8.5-10.1); CARBON DIOXIDE LEVEL 22 MEQ/L (21-32); CHLORIDE LEVEL 101 MEQ/L (98-107); CREATININE FOR GFR 0.69 MG/DL (0.55-1.30); GLOMERULAR FILTRATION RATE > 60.0 (>51); GLUCOSE, FASTING 100 MG/DL (70-100); SODIUM LEVEL 131 MEQ/L (136-145)
[2020-06-18] MEDS: levETIRAcetam 250MG TABLET (KEPPRA) PO SCH ×2 (08:45→21:12)
[2020-06-18] MEDS: TOPIRAMATE (TopAMAX) 100 MG TAB PO SCH ×2 (08:45→21:11)
[2020-06-18] MEDS: VITAMIN D (CHOLECALCIFEROL) 400 INTERNATIONAL UNITS TAB PO SCH (08:45)
[2020-06-18] MEDS: LACTULOSE 20 GM/30 ML SYRUP UD PO SCH ×3 (08:45→21:10)
[2020-06-18] MEDS: TOLTERODINE (DETROL) 2 MG TAB PO SCH ×2 (08:45→21:12)
[2020-06-18] MEDS: CETIRIZINE (ZyrTEC) 10 MG TAB PO SCH (08:46)
[2020-06-18] MEDS: SENOKOT S TAB PO SCH ×2 (08:46→21:12)
--- NOTE | 2020-06-18 13:34 | IPNPDOC ---
Text Note Date of Service The patient was seen on 06/18/20. NOTE Subjective: More awake today, sitting up in chair drooling. Did speak few words and told me that had a bowel movemetn. As per nurses has lost 10 kgs since last week. was evaluate by ST as she seemed to be keeping the food in the mouth and was having difficulty chewing and swallowing. This is probably due to somnolence as she was a voracious eater earlier in the hospitalization. Diet adjusted according to ST. Over this week patient has been noted to be very somnolent and constipated. Her haloperidol and sertraline was stopped. Objective: General: Awake, but somnolent. She does not appear to be in any acute distress at this time. HEENT: Head normocephalic, atraumatic, sclera are nonicteric. Neck: supple, no JVD Respiratory: Clear to auscultation bilaterally with no wheezes, rales, or rhonchi. Cardiovascular: Regular rate and rhythm, with no rubs, gallops, or murmur. Abdomen: Soft, nontender, obese, nondistended, no hepatosplenomegaly appreciated. Bowel sounds present. Extremities: 2+ pulses in the radial and dorsalis pedis bilaterally. No evidence of clubbing or cyanosis. Labs an radiology: reviewed. Patient is a 55-year-old female with a PMHx of Cognitive impairment with behavioral issues (cared for by he Mother), Seizure disorder, Subclinical hypothyroidism, Urinary incontinence, Degenerative disc disease, Cholelithiasis with biliary colic, Morbid obesity , who presented to the emergency room after she had fallen several times at home. Patient was admitted to hospitalist service on 05/11 with complaints that abdominal pain. That was evaluated and found to be secondary to cholelithiasis and possible biliary colic. Patient was later transferred to the inpatient mental health unit on 05/12 because of aggression and behavioral problems. Patient was ultimately discharged from inpatient mental health unit on 05/15. Social workers and case management had been working on placement and ultimately did find a solution prior to discharge, however, patients mother was adamant about taking her home. Patients mother/material liaison had indicated at that time that she was capable of caring for her mentally challenged daughter. She was back in the ED 4 days after her discharge after multiple falls at home. Patient was found to have bruising of her elbows and knees. Patient reported that shes been crawling around at home. Patient indicated that her mother is unable to care for her. Patient is now waiting [facility]. Over this week patient has been noted to be very somnolent and constipated. Her haloperidol and sertraline was stopped. Assessments: Acute Metabolic encephalopathy Severe constipation. UTI treated Moderate Mental retardation with behavioral issues. Seizure disorder focal partial and simple partial seizures. Multiple falls at home Rhabdomyolysis-resolved Cholelithiasis with biliary colic-resolved Hypothyroidism Urinary incontinence Degenerative disc disease Overactive bladder Morbid obesity Plan: Acute metabolic encephalopathy Increasing slowness and somnolence poor oral intake this week probably medications Haldol and sertraline now slightly improving after they were stopped. CT head no abnormality. No signs of infection. will restart at lower dose once more awake. Dysphagia Diet as per ST UTI probably cystitis finished 3 days of ciprofloxacin Moderate Mental retardation with behavioral issues. now too somnolent. stopped zoloft 50 mg and haloperidol 2mg She was going to be discharged on 05/30/2020, however it appears that the facility where she was going to did not have enough supportive care for her, therefore her discharge is now delayed. She is awaiting placement at a more appropriate facility. Seizure disorder keppra, topamax Hypothyroid synthroid Overactive Bladder tolterodine. Constipation resolved with aggressive bowel regimen including lactulose, dulcolax suppository , senna and colace, miralax. If no response by this afternoon will give enema DVT prophylaxis in place. VS,Fishbone, I+O VS, Fishbone, I+O Laboratory Tests 06/18/20 07:25 Vital Signs Date Time Temp Pulse Resp B/P (MAP) Pulse Ox O2 Delivery O2 Flow Rate FiO2 06/18/20 06:00 98.2 87 18 132/86 (101) 94 Room Air I&O- Last 24 Hours up to 6 AM 06/18/20 06:00 Intake Total 2180 ml Output Total 0 ml Balance 2180 ml TALIA REGALADO MD Jun 18, 2020 13:34
[2020-06-18] MEDS: haloperidoL 0.5 MG TAB PO SCH (15:31)
[2020-06-18] MEDS: MIRALAX *UNIT DOSE* 17GM PACKET PO SCH (21:10)
[2020-06-18] MEDS: ACETAMINOPHEN TAB 650MG DOSE (2X325MG) PO PRN (21:11)
[2020-06-19] MEDS: HEPARIN SOD (PORCINE) 5000UNITS/ML 1ML VIAL/SYRINGE SC SCH ×3 (05:45→22:27)
[2020-06-19] MEDS: LEVOTHYROXINE 50MCG TABLET (0.05MG) PO SCH (05:45)
[2020-06-19 06:00] VITALS: BP 99/73
[2020-06-19] MEDS: TOLTERODINE (DETROL) 2 MG TAB PO SCH ×2 (09:25→22:27)
[2020-06-19] MEDS: VITAMIN D (CHOLECALCIFEROL) 400 INTERNATIONAL UNITS TAB PO SCH (09:25)
[2020-06-19] MEDS: SENOKOT S TAB PO SCH ×2 (09:25→22:28)
[2020-06-19] MEDS: LACTULOSE 20 GM/30 ML SYRUP UD PO SCH ×3 (09:25→21:00)
[2020-06-19] MEDS: haloperidoL 0.5 MG TAB PO SCH (09:25)
[2020-06-19] MEDS: TOPIRAMATE (TopAMAX) 100 MG TAB PO SCH ×2 (09:26→22:29)
[2020-06-19] MEDS: ACETAMINOPHEN TAB 650MG DOSE (2X325MG) PO PRN ×2 (09:26→22:28)
[2020-06-19] MEDS: CETIRIZINE (ZyrTEC) 10 MG TAB PO SCH (09:26)
[2020-06-19] MEDS: levETIRAcetam 250MG TABLET (KEPPRA) PO SCH ×2 (09:26→22:28)
[2020-06-19] MEDS: MIRALAX *UNIT DOSE* 17GM PACKET PO SCH (21:00)
[2020-06-20] MEDS: LEVOTHYROXINE 50MCG TABLET (0.05MG) PO SCH (05:47)
[2020-06-20] MEDS: HEPARIN SOD (PORCINE) 5000UNITS/ML 1ML VIAL/SYRINGE SC SCH ×3 (05:47→21:28)
[2020-06-20] MEDS: LACTULOSE 20 GM/30 ML SYRUP UD PO SCH ×3 (09:28→21:28)
[2020-06-20] MEDS: SENOKOT S TAB PO SCH ×2 (09:29→21:29)
[2020-06-20] MEDS: haloperidoL 0.5 MG TAB PO SCH (09:29)
[2020-06-20] MEDS: levETIRAcetam 250MG TABLET (KEPPRA) PO SCH ×2 (09:29→21:29)
[2020-06-20] MEDS: CETIRIZINE (ZyrTEC) 10 MG TAB PO SCH (09:29)
[2020-06-20] MEDS: VITAMIN D (CHOLECALCIFEROL) 400 INTERNATIONAL UNITS TAB PO SCH (09:30)
[2020-06-20] MEDS: TOPIRAMATE (TopAMAX) 100 MG TAB PO SCH ×2 (09:30→21:29)
[2020-06-20] MEDS: TOLTERODINE (DETROL) 2 MG TAB PO SCH ×2 (09:30→21:29)
[2020-06-20] MEDS: MIRALAX *UNIT DOSE* 17GM PACKET PO SCH (21:28)
[2020-06-21] MEDS: LEVOTHYROXINE 50MCG TABLET (0.05MG) PO SCH (05:23)
[2020-06-21] MEDS: HEPARIN SOD (PORCINE) 5000UNITS/ML 1ML VIAL/SYRINGE SC SCH (05:23)
[2020-06-21 06:00] VITALS: BP 105/68
[2020-06-21 06:47] LABS: HEMATOCRIT 45.8 % (36.0-47.0); HEMOGLOBIN 15.1 g/dl (12.0-15.5); MEAN CORPUSCULAR HEMOGLOBIN 31.9 pg (27.0-33.0); MEAN CORPUSCULAR VOLUME 96.8 fl (80.0-96.0); PLATELET COUNT, AUTOMATED 176 10^3/uL (150-450); RED BLOOD COUNT 4.73 10^6/uL (4.00-5.40); WHITE BLOOD COUNT 7.6 10^3/uL (4.0-10.0)
[2020-06-21] MEDS: LACTULOSE 20 GM/30 ML SYRUP UD PO SCH ×2 (09:00→09:11)
[2020-06-21] MEDS: TOPIRAMATE (TopAMAX) 100 MG TAB PO SCH (09:11)
[2020-06-21] MEDS: levETIRAcetam 250MG TABLET (KEPPRA) PO SCH (09:11)
[2020-06-21] MEDS: TOLTERODINE (DETROL) 2 MG TAB PO SCH (09:11)
[2020-06-21] MEDS: haloperidoL 0.5 MG TAB PO SCH (09:11)
[2020-06-21] MEDS: CETIRIZINE (ZyrTEC) 10 MG TAB PO SCH (09:11)
[2020-06-21] MEDS: VITAMIN D (CHOLECALCIFEROL) 400 INTERNATIONAL UNITS TAB PO SCH (09:11)
[2020-06-21] MEDS: SENOKOT S TAB PO SCH (09:11)
[2020-06-23] MEDS ORDERED: TOLTERODINE (DETROL) 2 MG TAB ONE ×3 (10:13→11:30)
[2020-06-23] MEDS ORDERED: TOPIRAMATE (TopAMAX) 100 MG TAB ONE ×2 (10:13)
[2020-06-23] MEDS ORDERED: haloperidoL 0.5 MG TAB ONE ×2 (10:13→11:30)
[2020-06-23] MEDS ORDERED: LACTULOSE 20 GM/30 ML SYRUP UD ONE ×3 (10:13)
[2020-06-23] MEDS ORDERED: HEPARIN SOD (PORCINE) 5000UNITS/ML 1ML VIAL/SYRINGE ONE ×2 (10:13)
[2020-06-23] MEDS ORDERED: VITAMIN D (CHOLECALCIFEROL) 400 INTERNATIONAL UNITS TAB ONE (10:13)
[2020-06-23] MEDS ORDERED: SENOKOT S TAB ONE ×2 (10:13)
[2020-06-23] MEDS ORDERED: MIRALAX *UNIT DOSE* 17GM PACKET ONE (10:13)
[2020-06-23] MEDS ORDERED: levETIRAcetam 250MG TABLET (KEPPRA) ONE ×3 (10:13→11:30)
[2020-06-23] MEDS ORDERED: CETIRIZINE (ZyrTEC) 10 MG TAB ONE (10:13)
[2020-06-24] MEDS ORDERED: LACTULOSE 20 GM/30 ML SYRUP UD ONE (09:19)
[2020-06-24] MEDS ORDERED: TOLTERODINE (DETROL) 2 MG TAB ONE (09:19)
[2020-06-24] MEDS ORDERED: TOPIRAMATE (TopAMAX) 100 MG TAB ONE (09:19)
[2020-06-24] MEDS ORDERED: levETIRAcetam 250MG TABLET (KEPPRA) ONE (09:19)
[2020-06-24] MEDS ORDERED: MIRALAX *UNIT DOSE* 17GM PACKET ONE (09:19)
[2020-06-24] MEDS ORDERED: HEPARIN SOD (PORCINE) 5000UNITS/ML 1ML VIAL/SYRINGE ONE (09:19)
[2020-06-24] MEDS ORDERED: SENOKOT S TAB ONE (09:19)
[2020-06-25] MEDS ORDERED: LEVOTHYROXINE 50MCG TABLET (0.05MG) ONE (06:43)
[2020-06-25] MEDS ORDERED: HEPARIN SOD (PORCINE) 5000UNITS/ML 1ML VIAL/SYRINGE ONE ×3 (06:43→21:28)
[2020-06-25] MEDS ORDERED: TOPIRAMATE (TopAMAX) 100 MG TAB ONE ×2 (08:00→21:28)
[2020-06-25] MEDS ORDERED: TOLTERODINE (DETROL) 2 MG TAB ONE ×2 (08:00→21:28)
[2020-06-25] MEDS ORDERED: CETIRIZINE (ZyrTEC) 10 MG TAB ONE (08:00)
[2020-06-25] MEDS ORDERED: VITAMIN D (CHOLECALCIFEROL) 400 INTERNATIONAL UNITS TAB ONE (08:00)
[2020-06-25] MEDS ORDERED: SENOKOT S TAB ONE ×2 (08:00→21:28)
[2020-06-25] MEDS ORDERED: levETIRAcetam 250MG TABLET (KEPPRA) ONE ×2 (08:00→21:28)
[2020-06-25] MEDS ORDERED: haloperidoL 0.5 MG TAB ONE (08:00)
[2020-06-25] MEDS ORDERED: LACTULOSE 20 GM/30 ML SYRUP UD ONE ×3 (08:00→21:28)
[2020-06-25] MEDS ORDERED: MIRALAX *UNIT DOSE* 17GM PACKET ONE (21:28)
[2020-06-26] MEDS ORDERED: HEPARIN SOD (PORCINE) 5000UNITS/ML 1ML VIAL/SYRINGE ONE ×2 (05:31→23:12)
[2020-06-26] MEDS ORDERED: LEVOTHYROXINE 50MCG TABLET (0.05MG) ONE (05:31)
[2020-06-26] MEDS ORDERED: haloperidoL 0.5 MG TAB ONE (09:18)
[2020-06-26] MEDS ORDERED: LACTULOSE 20 GM/30 ML SYRUP UD ONE ×3 (09:18→23:12)
[2020-06-26] MEDS ORDERED: TOPIRAMATE (TopAMAX) 100 MG TAB ONE ×2 (09:18→23:12)
[2020-06-26] MEDS ORDERED: TOLTERODINE (DETROL) 2 MG TAB ONE ×2 (09:18→23:12)
[2020-06-26] MEDS ORDERED: SENOKOT S TAB ONE ×2 (09:18→23:12)
[2020-06-26] MEDS ORDERED: VITAMIN D (CHOLECALCIFEROL) 400 INTERNATIONAL UNITS TAB ONE (09:18)
[2020-06-26] MEDS ORDERED: CETIRIZINE (ZyrTEC) 10 MG TAB ONE (09:18)
[2020-06-26] MEDS ORDERED: levETIRAcetam 250MG TABLET (KEPPRA) ONE ×2 (09:18→23:12)
[2020-06-26] MEDS ORDERED: MIRALAX *UNIT DOSE* 17GM PACKET ONE (23:12)
[2020-06-27] MEDS ORDERED: LEVOTHYROXINE 50MCG TABLET (0.05MG) ONE (05:51)
[2020-06-27] MEDS ORDERED: HEPARIN SOD (PORCINE) 5000UNITS/ML 1ML VIAL/SYRINGE ONE ×3 (05:51→20:30)
[2020-06-27] MEDS ORDERED: TOLTERODINE (DETROL) 2 MG TAB ONE ×2 (09:49→20:30)
[2020-06-27] MEDS ORDERED: haloperidoL 0.5 MG TAB ONE (09:49)
[2020-06-27] MEDS ORDERED: SENOKOT S TAB ONE ×2 (09:49→20:30)
[2020-06-27] MEDS ORDERED: levETIRAcetam 250MG TABLET (KEPPRA) ONE ×2 (09:49→20:30)
[2020-06-27] MEDS ORDERED: TOPIRAMATE (TopAMAX) 100 MG TAB ONE ×2 (09:49→20:30)
[2020-06-27] MEDS ORDERED: CETIRIZINE (ZyrTEC) 10 MG TAB ONE (09:49)
[2020-06-27] MEDS ORDERED: LACTULOSE 20 GM/30 ML SYRUP UD ONE ×3 (09:49→20:30)
[2020-06-27] MEDS ORDERED: MIRALAX *UNIT DOSE* 17GM PACKET ONE (20:30)
[2020-06-28] MEDS ORDERED: HEPARIN SOD (PORCINE) 5000UNITS/ML 1ML VIAL/SYRINGE ONE ×2 (06:49→21:44)
[2020-06-28] MEDS ORDERED: LEVOTHYROXINE 50MCG TABLET (0.05MG) ONE (06:49)
[2020-06-28] MEDS ORDERED: levETIRAcetam 250MG TABLET (KEPPRA) ONE ×2 (11:04→21:44)
[2020-06-28] MEDS ORDERED: VITAMIN D (CHOLECALCIFEROL) 400 INTERNATIONAL UNITS TAB ONE (11:04)
[2020-06-28] MEDS ORDERED: CETIRIZINE (ZyrTEC) 10 MG TAB ONE (11:04)
[2020-06-28] MEDS ORDERED: LACTULOSE 20 GM/30 ML SYRUP UD ONE ×2 (11:04→21:44)
[2020-06-28] MEDS ORDERED: TOPIRAMATE (TopAMAX) 100 MG TAB ONE ×2 (11:04→21:44)
[2020-06-28] MEDS ORDERED: haloperidoL 0.5 MG TAB ONE (11:04)
[2020-06-28] MEDS ORDERED: TOLTERODINE (DETROL) 2 MG TAB ONE ×2 (11:04→21:44)
[2020-06-28] MEDS ORDERED: SENNA 8.6 MG TAB (SENOKOT) As Ordered ONE (11:05)
[2020-06-28] MEDS ORDERED: MIRALAX *UNIT DOSE* 17GM PACKET ONE (21:44)
[2020-06-28] MEDS ORDERED: SENOKOT S TAB ONE (21:44)
[2020-06-29] MEDS ORDERED: HEPARIN SOD (PORCINE) 5000UNITS/ML 1ML VIAL/SYRINGE ONE ×3 (07:09→22:41)
[2020-06-29] MEDS ORDERED: LEVOTHYROXINE 50MCG TABLET (0.05MG) ONE (07:09)
[2020-06-29] MEDS ORDERED: SENOKOT S TAB ONE (08:34)
[2020-06-29] MEDS ORDERED: levETIRAcetam 250MG TABLET (KEPPRA) ONE ×2 (08:34→22:41)
[2020-06-29] MEDS ORDERED: TOPIRAMATE (TopAMAX) 100 MG TAB ONE ×2 (08:35→22:41)
[2020-06-29] MEDS ORDERED: CETIRIZINE (ZyrTEC) 10 MG TAB ONE (08:35)
[2020-06-29] MEDS ORDERED: LACTULOSE 20 GM/30 ML SYRUP UD ONE (08:35)
[2020-06-29] MEDS ORDERED: VITAMIN D (CHOLECALCIFEROL) 400 INTERNATIONAL UNITS TAB ONE ×2 (08:36→11:00)
[2020-06-29] MEDS ORDERED: TOLTERODINE (DETROL) 2 MG TAB ONE ×2 (08:36→11:00)
[2020-06-29] MEDS ORDERED: haloperidoL 0.5 MG TAB ONE ×2 (08:37→11:00)
[2020-06-29] MEDS ORDERED: SENNA 8.6 MG TAB (SENOKOT) ONE (22:41)
[2020-06-29] MEDS ORDERED: SENNA 8.6 MG TAB (SENOKOT) As Ordered ONE (22:41)
[2020-06-29] MEDS ORDERED: MIRALAX *UNIT DOSE* 17GM PACKET ONE (22:41)
[2020-06-30] MEDS ORDERED: LEVOTHYROXINE 50MCG TABLET (0.05MG) ONE (06:13)
[2020-06-30] MEDS ORDERED: HEPARIN SOD (PORCINE) 5000UNITS/ML 1ML VIAL/SYRINGE ONE ×3 (06:13→19:50)
[2020-06-30] MEDS ORDERED: levETIRAcetam 250MG TABLET (KEPPRA) ONE ×2 (09:03→19:50)
[2020-06-30] MEDS ORDERED: TOPIRAMATE (TopAMAX) 100 MG TAB ONE ×2 (09:03→19:50)
[2020-06-30] MEDS ORDERED: CETIRIZINE (ZyrTEC) 10 MG TAB ONE (09:03)
[2020-07-01] MEDS ORDERED: HEPARIN SOD (PORCINE) 5000UNITS/ML 1ML VIAL/SYRINGE ONE ×3 (06:04→20:35)
[2020-07-01] MEDS ORDERED: LEVOTHYROXINE 50MCG TABLET (0.05MG) ONE (06:04)
[2020-07-01] MEDS ORDERED: TOPIRAMATE (TopAMAX) 100 MG TAB ONE ×2 (08:14→20:35)
[2020-07-01] MEDS ORDERED: CETIRIZINE (ZyrTEC) 10 MG TAB ONE (08:14)
[2020-07-01] MEDS ORDERED: levETIRAcetam 250MG TABLET (KEPPRA) ONE (20:35)
[2020-07-02] MEDS ORDERED: HEPARIN SOD (PORCINE) 5000UNITS/ML 1ML VIAL/SYRINGE ONE (05:54)
[2020-07-02] MEDS ORDERED: LEVOTHYROXINE 50MCG TABLET (0.05MG) ONE (05:54)
[2020-07-02] MEDS ORDERED: CETIRIZINE (ZyrTEC) 10 MG TAB ONE (09:00)
[2020-07-02] MEDS ORDERED: TOPIRAMATE (TopAMAX) 100 MG TAB ONE (09:00)
[2020-08-01 12:45] LABS: HEMATOCRIT 41.6 % (36.0-47.0); HEMOGLOBIN 13.7 g/dl (12.0-15.5); MEAN CORPUSCULAR HEMOGLOBIN 31.9 pg (27.0-33.0); MEAN CORPUSCULAR HGB CONC 32.9 g/dl (32.0-36.5); PLATELET COUNT, AUTOMATED 124 10^3/uL (150-450); RED BLOOD COUNT 4.29 10^6/uL (4.00-5.40); WHITE BLOOD COUNT 7.1 10^3/uL (4.0-10.0)
[2020-08-07 14:31] LABS: BLOOD UREA NITROGEN 18 MG/DL (7-18); CREATININE FOR GFR 0.75 MG/DL (0.55-1.30); GLOMERULAR FILTRATION RATE > 60.0 (>51); GLUCOSE, FASTING 93 MG/DL (70-100); POTASSIUM SERUM 4.3 MEQ/L (3.5-5.1); SODIUM LEVEL 138 MEQ/L (136-145)
[2020-08-07 14:32] LABS: CALCIUM LEVEL 8.7 MG/DL (8.5-10.1); CARBON DIOXIDE LEVEL 24 mmol/L (20-29); CHLORIDE LEVEL 107 MEQ/L (98-107)
== END 2020-07-02 08:00 | DRG 91 ==
LOC: M ED 05:07 → EDBD 05:07 → M ED INP 11:09 → EEVIPCON 11:09 → ENRESERV 12:12 → M MS5PR 13:27
PROVIDERS: ADMIT Internal Medicine; ATTEND Internal Medicine
DX: R29.6 Repeated falls (principal); G92 Toxic encephalopathy; M62.82 Rhabdomyolysis; N39.0 Urinary tract infection, site not specified; G31.84 Mild cognitive impairment of uncertain or unknown etiology; E66.01 Morbid (severe) obesity due to excess calories; G40.909 Epilepsy, unspecified, not intractable, without status epilepticus; E03.9 Hypothyroidism, unspecified; K80.20 Calculus of gallbladder without cholecystitis without obstruction; Z79.899 Other long term (current) drug therapy; Z88.0 Allergy status to penicillin; Z88.2 Allergy status to sulfonamides; Z88.8 Allergy status to other drugs, medicaments and biological substances; R32 Unspecified urinary incontinence; K59.00 Constipation, unspecified; Z53.09 Procedure and treatment not carried out because of other contraindication

== ENCOUNTER → 2020-07-10 | Outpatient (REF) ==
[~2020-07-10] MED LIST changes: +comment
== END ==
LOC: SKLAB2 17:13
PROVIDERS: ATTEND Nurse Practitioner Family
DX: Z51.81 Encounter for therapeutic drug level monitoring (principal)

== ENCOUNTER → 2020-07-11 | Outpatient (REF) ==
[2020-09-18 12:55] LABS: HEMATOCRIT 42.9 % (36.0-47.0); MEAN CORPUSCULAR HEMOGLOBIN 32.3 pg (27.0-33.0); MEAN CORPUSCULAR HGB CONC 32.6 g/dl (32.0-36.5); MEAN CORPUSCULAR VOLUME 98.8 fl (80.0-96.0); PLATELET COUNT, AUTOMATED 174 10^3/uL (150-450); RED BLOOD COUNT 4.34 10^6/uL (4.00-5.40); WHITE BLOOD COUNT 7.2 10^3/uL (4.0-10.0)
== END ==
LOC: SKLAB2 07:00
DX: G40.909 Epilepsy, unspecified, not intractable, without status epilepticus (principal)

== ENCOUNTER → 2020-08-28 | Outpatient (REF) | payer MEDICARE, MEDICAID | LOC: SKLAB2 08:58 | DX: G47.34 Idiopathic sleep related nonobstructive alveolar hypoventilation (principal) ==

== ENCOUNTER → 2020-10-11 | Outpatient (REF) | payer MEDICARE, MEDICAID ==
[2020-10-11 08:54] LABS: FREE T4 1.21 NG/DL (0.76-1.46); THYROID STIMULATING HORMONE 3.55 uIU/ML (0.358-3.740)
== END ==
LOC: SKLAB6 07:00
DX: E03.9 Hypothyroidism, unspecified (principal); G40.909 Epilepsy, unspecified, not intractable, without status epilepticus; Z51.81 Encounter for therapeutic drug level monitoring

== ENCOUNTER → 2020-10-17 | Outpatient (REF) | payer MEDICARE, MEDICAID | LOC: SKLAB6 10-16 13:15 → EDSTATUS 11-22 12:23 | DX: Z20.828 Contact with and (suspected) exposure to other viral communicable diseases (principal) ==

== ENCOUNTER → 2020-10-24 | Outpatient (REF) | payer MEDICARE, MEDICAID | LOC: SKLAB6 08:00 | PROVIDERS: ATTEND Internal Medicine | DX: Z20.828 Contact with and (suspected) exposure to other viral communicable diseases (principal) ==

== ENCOUNTER → 2020-10-31 | Outpatient (REF) | payer MEDICARE, MEDICAID ==
[2020-10-31 15:56] LABS: INFLUENZA A AMPLIFICATION NEGATIVE (NEGATIVE); INFLUENZA B AMPLIFICATION NEGATIVE (NEGATIVE)
== END ==
LOC: SKLAB6 08:00
PROVIDERS: ATTEND Internal Medicine
DX: Z20.828 Contact with and (suspected) exposure to other viral communicable diseases (principal); Z11.59 Encounter for screening for other viral diseases
CPT/HCPCS: 87502; U0003

== ENCOUNTER → 2020-11-07 | Outpatient (REF) | payer MEDICARE, MEDICAID | LOC: SKLAB6 10:00 | DX: Z20.828 Contact with and (suspected) exposure to other viral communicable diseases (principal) ==

== ENCOUNTER → 2020-11-14 | Outpatient (REF) | payer MEDICARE, MEDICAID ==
[2020-11-14 12:36] LABS: INFLUENZA A AMPLIFICATION NEGATIVE (NEGATIVE); INFLUENZA B AMPLIFICATION NEGATIVE (NEGATIVE)
== END ==
LOC: SKLAB6 12:31
DX: Z20.828 Contact with and (suspected) exposure to other viral communicable diseases (principal)
CPT/HCPCS: 87502; U0003

== ENCOUNTER → 2020-11-21 | Outpatient (REF) | payer MEDICARE, MEDICAID | LOC: SKLAB6 09:00 | DX: Z20.828 Contact with and (suspected) exposure to other viral communicable diseases (principal) ==

== ENCOUNTER → 2020-11-28 | Outpatient (REF) | payer MEDICARE, MEDICAID | LOC: SKLAB6 10:00 | DX: Z20.828 Contact with and (suspected) exposure to other viral communicable diseases (principal) ==

== ENCOUNTER → 2020-12-05 | Outpatient (REF) | payer MEDICARE, MEDICAID | LOC: SKLAB6 10:00 | PROVIDERS: ATTEND Internal Medicine | DX: Z11.52 Encounter for screening for COVID-19 (principal) ==

== ENCOUNTER → 2020-12-12 | Outpatient (REF) | payer MEDICARE, MEDICAID | LOC: SKLAB6 10:00 | PROVIDERS: ATTEND Internal Medicine | DX: Z20.822 Contact with and (suspected) exposure to COVID-19 (principal) ==

== ENCOUNTER → 2020-12-19 | Outpatient (REF) | payer MEDICARE, MEDICAID | LOC: SKLAB6 09:00 | PROVIDERS: ATTEND Internal Medicine | DX: Z20.822 Contact with and (suspected) exposure to COVID-19 (principal) ==

== ENCOUNTER → 2020-12-26 | Outpatient (REF) | payer MEDICARE, MEDICAID | LOC: SKLAB2 14:10 | PROVIDERS: ATTEND Internal Medicine | DX: Z20.822 Contact with and (suspected) exposure to COVID-19 (principal) ==

== ENCOUNTER → 2021-01-02 | Outpatient (REF) | payer MEDICARE, MEDICAID | LOC: SKLAB2 10:51 | PROVIDERS: ATTEND Internal Medicine | DX: Z11.52 Encounter for screening for COVID-19 (principal) ==

== ENCOUNTER → 2021-01-09 | Outpatient (REF) | payer MEDICARE, MEDICAID | LOC: SKLAB2 10:49 | PROVIDERS: ATTEND Internal Medicine | DX: Z20.822 Contact with and (suspected) exposure to COVID-19 (principal) ==

== ENCOUNTER → 2021-01-16 | Outpatient (REF) | payer MEDICARE, MEDICAID | LOC: SKLAB2 07:50 | PROVIDERS: ATTEND Internal Medicine | DX: Z20.822 Contact with and (suspected) exposure to COVID-19 (principal) ==

== ENCOUNTER → 2021-01-22 | Outpatient (REF) | payer MEDICARE, MEDICAID ==
[2021-01-22 11:15] LABS: ALBUMIN 3.3 GM/DL (3.2-5.2); ALT/SGPT 15 U/L (12-78); BILIRUBIN,DIRECT < 0.1 MG/DL (0.0-0.2); BILIRUBIN,TOTAL 0.3 MG/DL (0.2-1.0); TOTAL PROTEIN 5.9 GM/DL (6.4-8.2)
== END ==
LOC: SKLAB2 07:26
DX: R56.9 Unspecified convulsions (principal)

== ENCOUNTER → 2021-01-23 | Outpatient (REF) | payer MEDICARE, MEDICAID | LOC: SKLAB2 09:14 | PROVIDERS: ATTEND Internal Medicine | DX: Z20.822 Contact with and (suspected) exposure to COVID-19 (principal) ==

== ENCOUNTER → 2021-02-05 | Outpatient (REF) | payer MEDICARE, MEDICAID | LOC: SKLAB2 10:13 | DX: Z51.81 Encounter for therapeutic drug level monitoring (principal); Z79.899 Other long term (current) drug therapy ==

== ENCOUNTER → 2021-02-06 | Outpatient (REF) | payer MEDICARE, MEDICAID | LOC: SKLAB2 08:00 | PROVIDERS: ATTEND Internal Medicine | DX: Z11.52 Encounter for screening for COVID-19 (principal) ==

== ENCOUNTER → 2021-02-13 | Outpatient (REF) | payer MEDICARE, MEDICAID | LOC: SKLAB2 14:01 | PROVIDERS: ATTEND Internal Medicine | DX: Z20.822 Contact with and (suspected) exposure to COVID-19 (principal) ==

== ENCOUNTER → 2021-03-01 | Outpatient (REF) | payer MEDICARE, MEDICAID | LOC: SKLAB2 12:59 | PROVIDERS: ATTEND Internal Medicine | DX: Z20.822 Contact with and (suspected) exposure to COVID-19 (principal) ==

== ENCOUNTER → 2021-03-01 | Outpatient (REF) | payer MEDICARE, MEDICAID | LOC: SKLAB2 12:58 | DX: E11.9 Type 2 diabetes mellitus without complications (principal) ==

== ENCOUNTER → 2021-03-12 | Outpatient (REF) | payer MEDICARE, MEDICAID ==
[2021-03-12 09:46] LABS: ALBUMIN 3.1 GM/DL (3.2-5.2); ALT/SGPT 16 U/L (12-78); BILIRUBIN,TOTAL 0.5 MG/DL (0.2-1.0); BLOOD UREA NITROGEN 18 MG/DL (7-18); CALCIUM LEVEL 8.7 MG/DL (8.5-10.1); CARBON DIOXIDE LEVEL 20 MEQ/L (21-32); CHLORIDE LEVEL 111 MEQ/L (98-107); CREATININE FOR GFR 0.53 MG/DL (0.55-1.30); GLOMERULAR FILTRATION RATE > 60.0 (>51); GLUCOSE, FASTING 87 MG/DL (70-100); POTASSIUM SERUM 4.7 MEQ/L (3.5-5.1); SODIUM LEVEL 140 MEQ/L (136-145); TOTAL PROTEIN 5.8 GM/DL (6.4-8.2)
== END ==
LOC: SKLAB2 15:01
DX: G40.909 Epilepsy, unspecified, not intractable, without status epilepticus (principal); Z79.899 Other long term (current) drug therapy

== ENCOUNTER → 2021-05-07 | Outpatient (REF) | payer MEDICARE, MEDICAID | LOC: SKLAB2 13:06 | DX: Z51.81 Encounter for therapeutic drug level monitoring (principal); Z79.899 Other long term (current) drug therapy ==

== ENCOUNTER → 2021-05-15 | Outpatient (REF) | payer MEDICARE, MEDICAID ==
--- NOTE | 2021-05-15 14:08 | ECGEPIP ---
[facility] Test Date: 2021-05-15 Pat Name: AMRIT COSTELLO Department: Room: - Gender: Female Warp Placer: BAY Connell : 1965 Requested By: Jacey Millan Order Number: [id number] Reading MD: Jacey Millan Measurements Intervals [place] Rate: 56 P: 40 MT: 172 QRS: -39 QRSD: 130 T: -4 QT: 432 QTc: 416 Interpretive Statements Sinus bradycardia LAFB Right bundle branch block AND/OR RVH T wave abnormality, consider lateral ischemia NOW INCLUDES V6 PULM DIS PATTERN PRIOR SEPTAL Q NOT VISIBLE AND RATE SLOWER C/W 06/15/20 Electronically Signed on 05-15-2021 14:08:00 EDT by Jacey Millan
[2021-05-15 15:05] LABS: BLOOD UREA NITROGEN 16 MG/DL (7-18); CALCIUM LEVEL 8.8 MG/DL (8.5-10.1); CARBON DIOXIDE LEVEL 19 MEQ/L (21-32); CHLORIDE LEVEL 113 MEQ/L (98-107); CREATININE FOR GFR 0.79 MG/DL (0.55-1.30); GLOMERULAR FILTRATION RATE > 60.0 (>51); GLUCOSE, FASTING 85 MG/DL (70-100); HEMATOCRIT 48.8 % (36.0-47.0); HEMOGLOBIN 16.1 g/dl (12.0-15.5); MEAN CORPUSCULAR HEMOGLOBIN 31.3 pg (27.0-33.0); MEAN CORPUSCULAR VOLUME 94.9 fl (80.0-96.0); NT-PRO BNP 36 PG/ML (<125); PLATELET COUNT, AUTOMATED 135 10^3/uL (150-450); RED BLOOD COUNT 5.14 10^6/uL (4.00-5.40); SODIUM LEVEL 139 MEQ/L (136-145); WHITE BLOOD COUNT 8.5 10^3/uL (4.0-10.0)
--- NOTE | 2021-05-15 15:37 | REP ---
INDICATION: SOB. COMPARISON: Multiple the latest 05/11/2020 TECHNIQUE: Portable FINDINGS: The technique utilized in obtaining the radiograph has magnified the cardiac silhouette and attenuated the interstitial markings. The cardiomediastinal silhouette is essentially unchanged. Mild cardiomegaly accentuated by technique cannot be ruled out. The lung loyd are essentially unchanged when the technical differences between the examinations are taken into consideration. No acute patchy parenchymal opacities or pleural effusions have developed. The examination is further limited by the patient's hypoexpanded the lung loyd. There is no change in the osseous structures. IMPRESSION: No evidence of acute cardiopulmonary disease. <Electronically signed by Phill Nixon > 05/15/21 [id number]
== END ==
LOC: SKLAB2 10:51
DX: R60.0 Localized edema (principal); R00.1 Bradycardia, unspecified; R06.02 Shortness of breath

== ENCOUNTER → 2021-06-04 | Outpatient (REF) | payer MEDICARE, MEDICAID ==
[2021-06-04 11:47] LABS: BLOOD UREA NITROGEN 13 MG/DL (7-18); CARBON DIOXIDE LEVEL 26 MEQ/L (21-32); CHLORIDE LEVEL 108 MEQ/L (98-107); CREATININE FOR GFR 0.62 MG/DL (0.55-1.30); GLOMERULAR FILTRATION RATE > 60.0 (>51); GLUCOSE, FASTING 86 MG/DL (70-100); POTASSIUM SERUM 3.9 MEQ/L (3.5-5.1); SODIUM LEVEL 139 MEQ/L (136-145)
== END ==
LOC: SKLAB2 10:42
DX: R60.9 Edema, unspecified (principal)

== ENCOUNTER → 2021-07-09 | Outpatient (REF) | payer MEDICARE, MEDICAID ==
[2021-07-09 09:09] LABS: CHOLESTEROL RISK RATIO 3.723 (<5)
== END ==
LOC: SKLAB2 07:00
PROVIDERS: ATTEND Neuromusculoskeletal Medicine & OMM
DX: Z13.220 Encounter for screening for lipoid disorders (principal); Z79.899 Other long term (current) drug therapy

== ENCOUNTER → 2021-07-10 | Outpatient (CLI) | payer MEDICARE, MEDICAID ==
--- NOTE | 2021-07-10 13:48 | REP ---
INDICATION: SWELLING/PAIN, THIGH PAIN PT IN CT HOLDING AREA. COMPARISON: None. TECHNIQUE: Left {lower extremity duplex venous scanning is performed from the groin to the ankle level. FINDINGS: And exam quality is compromised by patient body habitus and inability to move. There is extensive occlusive deep vein thrombosis involving the left common femoral vein, left femoral vein, and left popliteal vein. There is also occlusive thrombosis of the proximal greater saphenous vein on the left. The left calf veins could not be visualized due to body habitus.. . . IMPRESSION: Extensive occlusive deep vein thrombosis left lower extremity from popliteal vein through common femoral vein and including the proximal greater saphenous vein. <Electronically signed by Dimas Parsons > 07/10/21 [id number]
== END ==
LOC: M RAD 12:42
PROVIDERS: ATTEND Nurse Practitioner Family
DX: I82.432 Acute embolism and thrombosis of left popliteal vein (principal); I82.412 Acute embolism and thrombosis of left femoral vein

== ENCOUNTER → 2021-07-11 | Outpatient (REF) | payer MEDICARE, MEDICAID ==
[2021-07-11 10:45] LABS: HEMATOCRIT 46.7 % (36.0-47.0); MEAN CORPUSCULAR HGB CONC 32.1 g/dl (32.0-36.5); MEAN CORPUSCULAR VOLUME 96.5 fl (80.0-96.0); PLATELET COUNT, AUTOMATED 153 10^3/uL (150-450); RED BLOOD COUNT 4.84 10^6/uL (4.00-5.40)
== END ==
LOC: SKLAB2 07:00
PROVIDERS: ATTEND Neuromusculoskeletal Medicine & OMM
DX: I82.409 Acute embolism and thrombosis of unspecified deep veins of unspecified lower extremity (principal); Z51.81 Encounter for therapeutic drug level monitoring; Z79.899 Other long term (current) drug therapy

== ENCOUNTER → 2021-07-18 | Outpatient (REF) | payer MEDICARE, MEDICAID ==
[2021-07-18 14:15] LABS: HEMATOCRIT 43.8 % (36.0-47.0); MEAN CORPUSCULAR VOLUME 96.9 fl (80.0-96.0); PLATELET COUNT, AUTOMATED 192 10^3/uL (150-450); RED BLOOD COUNT 4.52 10^6/uL (4.00-5.40); WHITE BLOOD COUNT 7.3 10^3/uL (4.0-10.0)
== END ==
LOC: SKLAB2 15:57
PROVIDERS: ATTEND Neuromusculoskeletal Medicine & OMM
DX: Z79.01 Long term (current) use of anticoagulants (principal)

== ENCOUNTER → 2021-07-23 | Outpatient (REF) | payer MEDICARE, MEDICAID | LOC: SKLAB2 15:10 | PROVIDERS: ATTEND Neuromusculoskeletal Medicine & OMM | DX: R60.9 Edema, unspecified (principal); Z53.8 Procedure and treatment not carried out for other reasons ==

== ENCOUNTER → 2021-08-01 | Outpatient (REF) | payer MEDICARE, MEDICAID ==
[~2021-08-01] MED LIST changes: +ACET325T43 PO; -D 202000 PO; +FURO40TA2 PO; +HALO0.5H PO; +LACT10SO3 PO; +LEVO75TA4 PO; +MILKSUS3 PO; +OXYC-517 PO; +SENN-111 PO; +TOPI100T9 PO; +VITA200032 PO; +XARE20TA PO
[2021-08-01 16:34] LABS: HEMATOCRIT 43.6 % (36.0-47.0); HEMOGLOBIN 14.3 g/dl (12.0-15.5); MEAN CORPUSCULAR HEMOGLOBIN 31.6 pg (27.0-33.0); MEAN CORPUSCULAR HGB CONC 32.8 g/dl (32.0-36.5); MEAN CORPUSCULAR VOLUME 96.2 fl (80.0-96.0); PLATELET COUNT, AUTOMATED 169 10^3/uL (150-450); RED BLOOD COUNT 4.53 10^6/uL (4.00-5.40); WHITE BLOOD COUNT 7.1 10^3/uL (4.0-10.0)
== END ==
LOC: SKLAB2 07-31 09:53
PROVIDERS: ATTEND Neuromusculoskeletal Medicine & OMM
DX: Z79.01 Long term (current) use of anticoagulants (principal)

== ENCOUNTER → 2021-08-13 | Outpatient (REF) | payer MEDICARE, MEDICAID ==
[~2021-08-13] MED LIST changes: -ACET325T43 PO; +D 202000 PO; -FURO40TA2 PO; -HALO0.5H PO; -LACT10SO3 PO; -LEVO75TA4 PO; -MILKSUS3 PO; -OXYC-517 PO; -SENN-111 PO; -TOPI100T9 PO; -VITA200032 PO; -XARE20TA PO
== END ==
LOC: SKLAB2 07:00
PROVIDERS: ATTEND Neuromusculoskeletal Medicine & OMM
DX: Z51.81 Encounter for therapeutic drug level monitoring (principal); G40.909 Epilepsy, unspecified, not intractable, without status epilepticus

== ENCOUNTER → 2021-09-17 | Outpatient (REF) | payer MEDICARE, MEDICAID | LOC: SKLAB7 10:53 | PROVIDERS: ATTEND Neuromusculoskeletal Medicine & OMM | DX: Z20.822 Contact with and (suspected) exposure to COVID-19 (principal) ==

== ENCOUNTER → 2021-09-19 | Outpatient (REF) | payer MEDICARE, MEDICAID | LOC: SKLAB7 05:55 | PROVIDERS: ATTEND Neuromusculoskeletal Medicine & OMM | DX: Z20.822 Contact with and (suspected) exposure to COVID-19 (principal) ==

== ENCOUNTER → 2021-09-23 | Outpatient (REF) | payer MEDICARE, MEDICAID | LOC: SKLAB7 09:00 | PROVIDERS: ATTEND Neuromusculoskeletal Medicine & OMM | DX: Z20.822 Contact with and (suspected) exposure to COVID-19 (principal) ==

== ENCOUNTER → 2021-09-26 | Outpatient (REF) | payer MEDICARE, MEDICAID | LOC: SKLAB7 07:10 | PROVIDERS: ATTEND Neuromusculoskeletal Medicine & OMM | DX: Z20.822 Contact with and (suspected) exposure to COVID-19 (principal) ==

== ENCOUNTER → 2021-09-30 | Outpatient (REF) | payer MEDICARE, MEDICAID | LOC: SKLAB7 08:02 | PROVIDERS: ATTEND Neuromusculoskeletal Medicine & OMM | DX: Z20.822 Contact with and (suspected) exposure to COVID-19 (principal) ==

== ENCOUNTER → 2021-10-03 | Outpatient (REF) | payer MEDICARE, MEDICAID | LOC: SKLAB7 05:42 | PROVIDERS: ATTEND Neuromusculoskeletal Medicine & OMM | DX: Z20.822 Contact with and (suspected) exposure to COVID-19 (principal) ==

== ENCOUNTER → 2021-10-09 | Outpatient (REF) | payer MEDICARE, MEDICAID | LOC: SKLAB7 05:15 | PROVIDERS: ATTEND Neuromusculoskeletal Medicine & OMM | DX: Z20.822 Contact with and (suspected) exposure to COVID-19 (principal) ==

== ENCOUNTER → 2021-10-16 | Outpatient (REF) | payer MEDICARE, MEDICAID | LOC: SKLAB7 09:00 | PROVIDERS: ATTEND Neuromusculoskeletal Medicine & OMM | DX: Z20.822 Contact with and (suspected) exposure to COVID-19 (principal) ==

== ENCOUNTER → 2021-10-28 | Outpatient (CLI) | payer MEDICARE, MEDICAID ==
[~2021-10-28] MED LIST changes: +ACET325T43 PO; -D 202000 PO; +FURO40TA2 PO; +HALO0.5H PO; +LACT10SO3 PO; +LEVO75TA4 PO; +MILKSUS3 PO; +OXYC-517 PO; +SENN-111 PO; +TOPI100T9 PO; +VITA200032 PO; +XARE20TA PO
== END ==
LOC: M RAD 14:37
PROVIDERS: ATTEND Nurse Practitioner Family
DX: S09.90XA Unspecified injury of head, initial encounter (principal); W19.XXXA Unspecified fall, initial encounter; Y92.9 Unspecified place or not applicable

== ENCOUNTER → 2021-11-04 | Outpatient (REF) | payer MEDICARE, MEDICAID | LOC: SKLAB7 13:58 | PROVIDERS: ATTEND Neuromusculoskeletal Medicine & OMM | DX: Z20.822 Contact with and (suspected) exposure to COVID-19 (principal); Z53.9 Procedure and treatment not carried out, unspecified reason ==

== ENCOUNTER → 2021-11-06 | Outpatient (REF) | payer MEDICARE, MEDICAID ==
[~2021-11-06] MED LIST changes: -ACET325T43 PO; +D 202000 PO; -FURO40TA2 PO; -HALO0.5H PO; -LACT10SO3 PO; -LEVO75TA4 PO; -MILKSUS3 PO; -OXYC-517 PO; -SENN-111 PO; -TOPI100T9 PO; -VITA200032 PO; -XARE20TA PO
== END ==
LOC: SKLAB7 13:53
PROVIDERS: ATTEND Neuromusculoskeletal Medicine & OMM
DX: Z20.822 Contact with and (suspected) exposure to COVID-19 (principal)

== ENCOUNTER → 2021-11-13 | Outpatient (REF) | payer MEDICARE, MEDICAID ==
[~2021-11-13] MED LIST changes: +ACET325T43 PO; -D 202000 PO; +FURO40TA2 PO; +HALO0.5H PO; +LACT10SO3 PO; +LEVO75TA4 PO; +MILKSUS3 PO; +OXYC-517 PO; +SENN-111 PO; +TOPI100T9 PO; +VITA200032 PO; +XARE20TA PO
== END ==
LOC: SKLAB7 06:21
PROVIDERS: ATTEND Internal Medicine
DX: Z20.822 Contact with and (suspected) exposure to COVID-19 (principal)

== ENCOUNTER → 2021-11-14 | Outpatient (REF) | payer MEDICARE, MEDICAID ==
[~2021-11-14] MED LIST changes: +D 202000 PO; -OXYC-517 PO; -VITA200032 PO
[2021-11-14 09:14] LABS: HEMOGLOBIN 13.1 g/dl (12.0-15.5); MEAN CORPUSCULAR HEMOGLOBIN 31.4 pg (27.0-33.0); MEAN CORPUSCULAR HGB CONC 32.8 g/dl (32.0-36.5); MEAN CORPUSCULAR VOLUME 95.9 fl (80.0-96.0); PLATELET COUNT, AUTOMATED 144 10^3/uL (150-450); RED BLOOD COUNT 4.17 10^6/uL (4.00-5.40); WHITE BLOOD COUNT 5.8 10^3/uL (4.0-10.0)
[2021-11-14 09:52] LABS: ALBUMIN 2.8 GM/DL (3.2-5.2); ALT/SGPT 32 U/L (12-78); BILIRUBIN,TOTAL 0.5 MG/DL (0.2-1.0); BLOOD UREA NITROGEN 21 MG/DL (7-18); CALCIUM LEVEL 8.5 MG/DL (8.5-10.1); CARBON DIOXIDE LEVEL 22 MEQ/L (21-32); CHLORIDE LEVEL 110 MEQ/L (98-107); CREATININE FOR GFR 0.68 MG/DL (0.55-1.30); GLOMERULAR FILTRATION RATE > 60.0 (>51); GLUCOSE, FASTING 91 MG/DL (70-100); POTASSIUM SERUM 4.1 MEQ/L (3.5-5.1); SODIUM LEVEL 140 MEQ/L (136-145); TOTAL PROTEIN 5.5 GM/DL (6.4-8.2)
== END ==
LOC: SKLAB7 07:00
PROVIDERS: ATTEND Neuromusculoskeletal Medicine & OMM
DX: Z51.81 Encounter for therapeutic drug level monitoring (principal); E03.9 Hypothyroidism, unspecified; Z79.01 Long term (current) use of anticoagulants

== ENCOUNTER 2021-11-19 11:48 | Inpatient (IN) | payer MEDICARE, MEDICAID ==
[~2021-11-19] VITALS: Ht 175.3 cm; Wt 140.1 kg
[~2021-11-19 11:48] MED LIST changes: -ACET325T43 PO; -D 202000 PO; -FURO40TA2 PO; -HALO0.5H PO; -LACT10SO3 PO; -LEVO75TA4 PO; -MILKSUS3 PO; -SENN-111 PO; -TOPI100T9 PO; +VITA200032 PO; -XARE20TA PO
[2021-11-19] MEDS ORDERED: MORPHINE 10 MG/ML 1ML VIAL (J2270) IM ONE (13:25)
[2021-11-19] MEDS ORDERED: HALO0.5H PO (15:27)
[2021-11-19] MEDS ORDERED: LEVO75TA4 PO (15:27)
[2021-11-19] MEDS ORDERED: LACT10SO3 PO (15:27)
[2021-11-19] MEDS ORDERED: MILKSUS3 PO (15:32)
[2021-11-19] MEDS ORDERED: ACET325T43 PO (15:32)
[2021-11-19] MEDS ORDERED: XARE20TA PO (15:32)
[2021-11-19] MEDS ORDERED: TOPI100T9 PO (15:32)
[2021-11-19] MEDS ORDERED: SENN-111 PO (15:32)
[2021-11-19 16:30] LABS: BASO % 0.5 % (0.0-1.0); EOS # 0.2 10^3/uL (0.0-0.5); EOS % 2.7 % (0.0-3.0); HEMATOCRIT 41.4 % (36.0-47.0); HEMOGLOBIN 13.5 g/dl (12.0-15.5); LYMPH % 25.6 % (24.0-44.0); MEAN CORPUSCULAR HEMOGLOBIN 31.5 pg (27.0-33.0); MEAN CORPUSCULAR HGB CONC 32.6 g/dl (32.0-36.5); MEAN CORPUSCULAR VOLUME 96.5 fl (80.0-96.0); MONO # 0.5 10^3/uL (0.0-0.8); MONO % 6.7 % (2.0-8.0); NEUTROPHILS # 4.9 10^3/uL (1.5-8.5); NEUTROPHILS % 64.1 % (36.0-66.0); PLATELET COUNT, AUTOMATED 148 10^3/uL (150-450); RED BLOOD COUNT 4.29 10^6/uL (4.00-5.40); WHITE BLOOD COUNT 7.7 10^3/uL (4.0-10.0)
[2021-11-19] MEDS ORDERED: HEPARIN SOD (PORCINE) 5000UNITS/ML 1ML VIAL/SYRINGE IV ONE (16:45)
[2021-11-19] MEDS ORDERED: HEPARIN SOD (PORCINE) 5000UNITS/ML 1ML VIAL/SYRINGE IV PRN (16:45)
[2021-11-19] MEDS ORDERED: HEPARIN DRIP 25,000 UNITS in IV 1 EA IV SCH (16:45)
[2021-11-19 16:48] LABS: BLOOD UREA NITROGEN 17 MG/DL (7-18); CALCIUM LEVEL 8.7 MG/DL (8.5-10.1); CARBON DIOXIDE LEVEL 25 MEQ/L (21-32); CHLORIDE LEVEL 109 MEQ/L (98-107); CREATININE FOR GFR 0.76 MG/DL (0.55-1.30); GLOMERULAR FILTRATION RATE > 60.0 (>51); GLUCOSE, FASTING 93 MG/DL (70-100); POTASSIUM SERUM 4.3 MEQ/L (3.5-5.1); SODIUM LEVEL 141 MEQ/L (136-145)
[2021-11-19] MEDS ORDERED: SENNA 8.6 MG TAB (SENOKOT) PO PRN (16:50)
[2021-11-19 17:48] LABS: RSV AMPLIFICATION NEGATIVE (NEGATIVE)
[2021-11-19] MEDS ORDERED: FURO40TA2 PO (18:25)
[2021-11-19] MEDS ORDERED: HOME MED LIST COMPLETE! XX SCH (18:30)
[2021-11-19] MEDS: TOPIRAMATE (TopAMAX) 100 MG TAB PO SCH (23:48)
[2021-11-19] MEDS: levETIRAcetam 250MG TABLET (KEPPRA) PO SCH (23:49)
[2021-11-20 06:00] VITALS: BP 116/57
[2021-11-20] MEDS: LEVOTHYROXINE 75MCG TABLET (0.075MG) PO SCH (06:00)
[2021-11-20 07:48] LABS: BASO % 0.6 % (0.0-1.0); EOS # 0.3 10^3/uL (0.0-0.5); EOS % 4.5 % (0.0-3.0); HEMATOCRIT 38.4 % (36.0-47.0); HEMOGLOBIN 12.3 g/dl (12.0-15.5); LYMPH # 1.6 10^3/uL (1.5-5.0); LYMPH % 26.1 % (24.0-44.0); MEAN CORPUSCULAR HEMOGLOBIN 31.1 pg (27.0-33.0); MEAN CORPUSCULAR VOLUME 97.2 fl (80.0-96.0); MONO # 0.4 10^3/uL (0.0-0.8); NEUTROPHILS # 3.9 10^3/uL (1.5-8.5); NEUTROPHILS % 61.5 % (36.0-66.0); PLATELET COUNT, AUTOMATED 121 10^3/uL (150-450); RED BLOOD COUNT 3.95 10^6/uL (4.00-5.40); WHITE BLOOD COUNT 6.3 10^3/uL (4.0-10.0)
[2021-11-20 08:11] LABS: BLOOD UREA NITROGEN 14 MG/DL (7-18); CALCIUM LEVEL 8.3 MG/DL (8.5-10.1); CARBON DIOXIDE LEVEL 18 MEQ/L (21-32); CHLORIDE LEVEL 113 MEQ/L (98-107); CREATININE FOR GFR 0.52 MG/DL (0.55-1.30); GLOMERULAR FILTRATION RATE > 60.0 (>51); GLUCOSE, FASTING 104 MG/DL (70-100); MAGNESIUM LEVEL 2.1 MG/DL (1.8-2.4); POTASSIUM SERUM 4.3 MEQ/L (3.5-5.1); SODIUM LEVEL 139 MEQ/L (136-145)
[2021-11-20] MEDS: TOPIRAMATE (TopAMAX) 100 MG TAB PO SCH ×2 (08:14→20:49)
[2021-11-20] MEDS: haloperidoL 0.5 MG TAB PO SCH (08:14)
[2021-11-20] MEDS: levETIRAcetam 250MG TABLET (KEPPRA) PO SCH ×2 (08:14→20:49)
[2021-11-20] MEDS ORDERED: MORPHINE 2 MG/ML 1ML VIAL (J2270) IV PRN (09:45)
[2021-11-20] MEDS ORDERED: ACETAMINOPHEN 500 MG TAB PO PRN (09:45)
[2021-11-20 14:00] VITALS: BP 111/56
[2021-11-20] MEDS ORDERED: ONDANSETRON 4MG/2ML VIAL As Ordered ONE (21:27)
[2021-11-20] MEDS ORDERED: propofoL 200 MG/20 ML VIAL As Ordered ONE (21:27)
[2021-11-20] MEDS ORDERED: fentaNYL 100 MCG/2 ML INJECTION As Ordered ONE ×2 (21:27→23:18)
[2021-11-20] MEDS ORDERED: MIDAZOLAM INJ 2MG/2ML VIAL (J2250 PER 1MG) As Ordered ONE (21:27)
[2021-11-20] MEDS ORDERED: LIDOCAINE 2% 100MG/5ML SDV (FOR ANES.) As Ordered ONE (21:27)
[2021-11-20] MEDS ORDERED: dexameTHASONE 4 MG/ML 1ML VIAL (J1100 PER 1MG) As Ordered ONE (21:27)
[2021-11-20] MEDS ORDERED: ROCURONIUM BROMIDE 50 MG/5 ML VIAL As Ordered ONE ×2 (21:27→23:27)
[2021-11-20 22:00] VITALS: BP 120/58
[2021-11-20] MEDS ORDERED: ceFAZolin 2 GM/D5W 50 ML IV BAG (J0690 PER 500MG) As Ordered ONE (23:05)
[2021-11-20] MEDS ORDERED: ACETAMINOPHEN 1000MG 100ML IV BTL (OFIRMEV) (J0131 PER 10MG) As Ordered ONE (23:05)
[2021-11-20] MEDS ORDERED: ceFAZolin 1GM VIAL (J0690 PER 500MG) As Ordered ONE (23:07)
[2021-11-20] MEDS ORDERED: SUGAMMADEX SODIUM 500 MG/5 ML VIAL (BRIDION) As Ordered ONE (23:27)
[2021-11-20] MEDS ORDERED: HYDROmorphone HCL 2MG/ML 1ML VIAL As Ordered ONE (23:38)
[2021-11-21] MEDS ORDERED: METOCLOPRAMIDE INJ 10MG/2ML VIAL (J2765 PER 1) As Ordered ONE (00:01)
[2021-11-21] MEDS ORDERED: KETOROLAC 60MG 2ML VIAL As Ordered ONE (00:01)
[2021-11-21] MEDS ORDERED: fentaNYL 100 MCG/2 ML INJECTION IV PRN (00:15)
[2021-11-21] MEDS ORDERED: LR 1,000 ML IV SCH (00:15)
[2021-11-21] MEDS ORDERED: ONDANSETRON 4MG/2ML VIAL IV PRN (00:15)
[2021-11-21] MEDS ORDERED: KETOROLAC 30 MG/ML 1ML VIAL IV PRN (00:15)
[2021-11-21] MEDS ORDERED: PERCOCET 5MG/325MG TAB PO PRN (00:15)
[2021-11-21 01:05] VITALS: BP 110/58
[2021-11-21 01:35] VITALS: BP 111/59
[2021-11-21] MEDS: oxyCODONE 5MG TAB PO PRN ×2 (01:38→13:32)
[2021-11-21 02:05] VITALS: BP 100/52
[2021-11-21 04:00] VITALS: BP 100/58
[2021-11-21 05:02] VITALS: BP 101/58
[2021-11-21] MEDS: LEVOTHYROXINE 75MCG TABLET (0.075MG) PO SCH (06:32)
[2021-11-21 06:44] VITALS: BP 102/58
[2021-11-21 07:11] LABS: HEMATOCRIT 37.4 % (36.0-47.0); HEMOGLOBIN 12.2 g/dl (12.0-15.5); MEAN CORPUSCULAR HEMOGLOBIN 31.4 pg (27.0-33.0); MEAN CORPUSCULAR HGB CONC 32.6 g/dl (32.0-36.5); MEAN CORPUSCULAR VOLUME 96.1 fl (80.0-96.0); RED BLOOD COUNT 3.89 10^6/uL (4.00-5.40); WHITE BLOOD COUNT 7.6 10^3/uL (4.0-10.0)
[2021-11-21 07:13] LABS: BLOOD UREA NITROGEN 16 MG/DL (7-18); CALCIUM LEVEL 8.5 MG/DL (8.5-10.1); CARBON DIOXIDE LEVEL 20 MEQ/L (21-32); CHLORIDE LEVEL 111 MEQ/L (98-107); CREATININE FOR GFR 0.78 MG/DL (0.55-1.30); GLOMERULAR FILTRATION RATE > 60.0 (>51); GLUCOSE, FASTING 122 MG/DL (70-100); MAGNESIUM LEVEL 2.1 MG/DL (1.8-2.4); PHOSPHORUS LEVEL 3.6 MG/DL (2.5-4.9); POTASSIUM SERUM 4.8 MEQ/L (3.5-5.1); SODIUM LEVEL 137 MEQ/L (136-145)
[2021-11-21] MEDS ORDERED: RIVAROXABAN 20 MG TAB (XARELTO) PO SCH (08:00)
[2021-11-21] MEDS: levETIRAcetam 250MG TABLET (KEPPRA) PO SCH (09:24)
[2021-11-21] MEDS: haloperidoL 0.5 MG TAB PO SCH (09:24)
[2021-11-21] MEDS: TOPIRAMATE (TopAMAX) 100 MG TAB PO SCH (09:24)
[2021-11-21] MEDS ORDERED: OXYC-517 PO (11:44)
== END 2021-11-21 13:49 | DRG 563 ==
LOC: M ED 11:48 → M ED INP 15:55 → M MSPAV 23:28
PROVIDERS: ADMIT Internal Medicine; ATTEND Internal Medicine
PROC: 0SS Lower Joints, Reposition (ICD-10-PCS; principal; 2021-11-20 06:56)
DX: S82.831A Other fracture of upper and lower end of right fibula, initial encounter for closed fracture (principal); R45.851 Suicidal ideations; F72 Severe intellectual disabilities; Z68.42 Body mass index [BMI] 45.0-49.9, adult; G40.909 Epilepsy, unspecified, not intractable, without status epilepticus; E03.9 Hypothyroidism, unspecified; E66.01 Morbid (severe) obesity due to excess calories; W05.0XXA Fall from non-moving wheelchair, initial encounter; Y92.128 Other place in nursing home as the place of occurrence of the external cause; Z66 Do not resuscitate; Z20.822 Contact with and (suspected) exposure to COVID-19; S82.391A Other fracture of lower end of right tibia, initial encounter for closed fracture; Z86.718 Personal history of other venous thrombosis and embolism; Z79.01 Long term (current) use of anticoagulants; Z79.899 Other long term (current) drug therapy; Z88.0 Allergy status to penicillin; Z88.2 Allergy status to sulfonamides; Z88.8 Allergy status to other drugs, medicaments and biological substances; Z99.3 Dependence on wheelchair

== ENCOUNTER → 2021-11-20 | Outpatient (REF) | payer MEDICARE, MEDICAID ==
[~2021-11-20] MED LIST changes: +ACET325T43 PO; +FURO40TA2 PO; +HALO0.5H PO; +LACT10SO3 PO; +LEVO75TA4 PO; +MILKSUS3 PO; +OXYC-517 PO; +SENN-111 PO; +TOPI100T9 PO; +XARE20TA PO
== END ==
LOC: SKLAB7 07:00
PROVIDERS: ATTEND Neuromusculoskeletal Medicine & OMM
DX: Z20.822 Contact with and (suspected) exposure to COVID-19 (principal)

== ENCOUNTER → 2021-11-27 | Outpatient (REF) | payer MEDICARE, MEDICAID ==
[~2021-11-27] MED LIST changes: +D 202000 PO; -VITA200032 PO
== END ==
LOC: SKLAB7 10:14
PROVIDERS: ATTEND Neuromusculoskeletal Medicine & OMM
DX: Z20.822 Contact with and (suspected) exposure to COVID-19 (principal)

== ENCOUNTER → 2021-12-04 | Outpatient (REF) | payer MEDICARE, MEDICAID | LOC: SKLAB7 07:00 | PROVIDERS: ATTEND Neuromusculoskeletal Medicine & OMM | DX: Z20.822 Contact with and (suspected) exposure to COVID-19 (principal) ==

== ENCOUNTER → 2021-12-26 | Outpatient (REF) ==
[~2021-12-26] MED LIST changes: -D 202000 PO; +VITA200032 PO
[2021-12-26 15:00] LABS: HEMATOCRIT 44.7 % (36.0-47.0); HEMOGLOBIN 14.3 g/dl (12.0-15.5); PLATELET COUNT, AUTOMATED 170 10^3/uL (150-450); RED BLOOD COUNT 4.61 10^6/uL (4.00-5.40); WHITE BLOOD COUNT 6.1 10^3/uL (4.0-10.0)
[2021-12-26 15:35] LABS: ERYTHROCYTE SEDIMENTATION RATE 4 mm/hr (0-30)
== END ==
LOC: SKLAB7 13:30
PROVIDERS: ATTEND Neuromusculoskeletal Medicine & OMM
DX: S81.809A Unspecified open wound, unspecified lower leg, initial encounter (principal)

== ENCOUNTER → 2021-12-31 | Outpatient (CLI) | payer MEDICARE, MEDICAID | LOC: M SOG 09:44 | PROVIDERS: ATTEND Orthopaedic Surgery | DX: Z47.89 Encounter for other orthopedic aftercare (principal) ==

== ENCOUNTER → 2022-02-11 | Outpatient (CLI) | payer MEDICARE, MEDICAID | LOC: M SOG 08:25 | PROVIDERS: ATTEND Orthopaedic Surgery | DX: S82.301D Unspecified fracture of lower end of right tibia, subsequent encounter for closed fracture with routine healing (principal); X58.XXXD Exposure to other specified factors, subsequent encounter; Y92.9 Unspecified place or not applicable; Y93.9 Activity, unspecified; Y99.9 Unspecified external cause status ==

== ENCOUNTER → 2022-02-13 | Outpatient (REF) | payer MEDICARE, MEDICAID ==
[2022-02-13 13:46] LABS: ALT/SGPT 20 U/L (12-78); BILIRUBIN,TOTAL 0.2 MG/DL (0.2-1.0); BLOOD UREA NITROGEN 18 MG/DL (7-18); CALCIUM LEVEL 8.6 MG/DL (8.5-10.1); CARBON DIOXIDE LEVEL 22 MEQ/L (21-32); CHLORIDE LEVEL 112 MEQ/L (98-107); CREATININE FOR GFR 0.59 MG/DL (0.55-1.30); GLOMERULAR FILTRATION RATE > 60.0 (>51); GLUCOSE, FASTING 93 MG/DL (70-100); POTASSIUM SERUM 4.5 MEQ/L (3.5-5.1); SODIUM LEVEL 141 MEQ/L (136-145); TOTAL PROTEIN 5.5 GM/DL (6.4-8.2)
[2022-02-13 15:47] LABS: HEMATOCRIT 42.8 % (36.0-47.0); HEMOGLOBIN 13.6 g/dl (12.0-15.5); MEAN CORPUSCULAR HEMOGLOBIN 30.9 pg (27.0-33.0); MEAN CORPUSCULAR HGB CONC 31.8 g/dl (32.0-36.5); MEAN CORPUSCULAR VOLUME 97.3 fl (80.0-96.0); PLATELET COUNT, AUTOMATED 174 10^3/uL (150-450)
== END ==
LOC: SKLAB7 07:00
PROVIDERS: ATTEND Neuromusculoskeletal Medicine & OMM
DX: Z51.81 Encounter for therapeutic drug level monitoring (principal); E03.9 Hypothyroidism, unspecified; Z79.01 Long term (current) use of anticoagulants

== ENCOUNTER → 2022-02-25 | Outpatient (REF) | payer MEDICARE, MEDICAID | LOC: SKLAB7 10:59 | PROVIDERS: ATTEND Neuromusculoskeletal Medicine & OMM | DX: Z11.2 Encounter for screening for other bacterial diseases (principal); Z86.14 Personal history of Methicillin resistant Staphylococcus aureus infection; Z53.9 Procedure and treatment not carried out, unspecified reason ==

== ENCOUNTER → 2022-04-03 | Outpatient (CLI) | payer MEDICARE, MEDICAID ==
[~2022-04-03] MED LIST changes: +[UNRECOGNIZED DRUG - CODE] PO; -[UNRECOGNIZED DRUG - CODE] PO
== END ==
LOC: M SOG 09:31
PROVIDERS: ATTEND Orthopaedic Surgery
DX: S82.301D Unspecified fracture of lower end of right tibia, subsequent encounter for closed fracture with routine healing (principal)

== ENCOUNTER 2022-05-02 21:06 | Inpatient (IN) | payer MEDICARE, MEDICAID ==
[~2022-05-02] VITALS: Ht 167.6 cm; Wt 159.8 kg
[2022-05-02] MEDS: LEVOTHYROXINE 75MCG TABLET (0.075MG) PO SCH (05:55)
[~2022-05-02 21:06] MED LIST changes: -ACET500T15 PO; -APAP325T4 PO; -BISA10SU4 PR; -DOXY100T PO; -FLEEENE12 PR; -HYDROCORTIZONE TOP; -LEVO750T13 PO
[2022-05-02] MEDS ORDERED: ACETAMINOPHEN 325 MG TAB PO ONE (21:45)
[2022-05-02 22:12] LABS: BASO # 0.1 10^3/uL (0.0-0.2); BASO % 0.3 % (0.0-1.0); EOS % 0.1 % (0.0-3.0); HEMATOCRIT 42.1 % (36.0-47.0); HEMOGLOBIN 13.8 g/dl (12.0-15.5); LYMPH # 0.4 10^3/uL (1.5-5.0); LYMPH % 2.1 % (24.0-44.0); MEAN CORPUSCULAR HEMOGLOBIN 32.1 pg (27.0-33.0); MEAN CORPUSCULAR HGB CONC 32.8 g/dl (32.0-36.5); MEAN CORPUSCULAR VOLUME 97.9 fl (80.0-96.0); MONO # 0.8 10^3/uL (0.0-0.8); NEUTROPHILS # 18.6 10^3/uL (1.5-8.5); NEUTROPHILS % 92.7 % (36.0-66.0); PLATELET COUNT, AUTOMATED 138 10^3/uL (150-450)
[2022-05-02 22:21] LABS: INR 1.05; PARTIAL THROMBOPLASTIN TIME 30.1 SECONDS (25.9-37.0); PROTHROMBIN TIME 14.1 SECONDS (12.7-14.5)
[2022-05-02 22:42] LABS: CK-MB VALUE MASS 1.7 NG/ML (<3.6); MB/CK RELATIVE INDEX 1.48 (< OR =4)
[2022-05-02 22:44] LABS: ALBUMIN 3.3 GM/DL (3.2-5.2); ALT/SGPT 23 U/L (12-78); AMYLASE 37 U/L (25-115); BILIRUBIN,DIRECT 0.1 MG/DL (0.0-0.2); BILIRUBIN,TOTAL 0.4 MG/DL (0.2-1.0); BLOOD UREA NITROGEN 22 MG/DL (7-18); C REACTIVE PROTEIN QUANTITATIV 5.33 MG/DL (0.00-0.30); CALCIUM LEVEL 8.3 MG/DL (8.5-10.1); CARBON DIOXIDE LEVEL 23 MEQ/L (21-32); CHLORIDE LEVEL 107 MEQ/L (98-107); CREATININE FOR GFR 0.98 MG/DL (0.55-1.30); GLOMERULAR FILTRATION RATE > 60.0 (>51); GLUCOSE, FASTING 126 MG/DL (70-100); POTASSIUM SERUM 4.1 MEQ/L (3.5-5.1); SODIUM LEVEL 138 MEQ/L (136-145); TOTAL PROTEIN 6.4 GM/DL (6.4-8.2)
[2022-05-02] MEDS ORDERED: NS 1,000 ML IV ONE (22:50)
[2022-05-02 23:14] LABS: NT-PRO BNP 254 PG/ML (<125)
[2022-05-03 00:12] LABS: APPEARANCE, URINE HAZY (CLEAR); BACTERIA, URINE AUTO NEGATIVE (NEGATIVE); BILIRUBIN, URINE AUTO NEGATIVE (NEGATIVE); BLOOD, URINE BLOOD 1+ (NEGATIVE); COLOR, URINE YELLOW (YELLOW); GLUCOSE, URINE (UA) AUTO NEGATIVE (NEGATIVE); KETONE, URINE AUTO NEGATIVE (NEGATIVE); LEUKOCYTE ESTERASE, URINE AUTO 1+ (NEGATIVE); MUCUS, URINE SMALL (NEGATIVE); NITRITE, URINE AUTO NEGATIVE (NEGATIVE); PROTEIN, URINE AUTO NEGATIVE (NEGATIVE); RBC, URINE AUTO 9 /HPF (0-3); SPECIFIC GRAVITY URINE AUTO 1.021 (1.002-1.035); SQUAMOUS EPITHELIAL CELL UR AU 3 /HPF (0-6); UROBILINOGEN, URINE AUTO 0.2 mg/dL (0.0-2.0); WBC, URINE AUTO 13 /HPF (0-3)
[2022-05-03] MEDS ORDERED: VANCOMYCIN HCL IV ONE (00:30)
[2022-05-03] MEDS ORDERED: FLUID PLACE HOLDER IV ONE (00:30)
[2022-05-03] MEDS ORDERED: CLINDAMYCIN 600 MG in IV 1 EA IV ONE (00:35)
[2022-05-03] MEDS ORDERED: MIRA3350 PO (00:48)
[2022-05-03] MEDS ORDERED: NYST1POW9 TOP ×2 (00:48→00:57)
[2022-05-03] MEDS ORDERED: BISA10SU4 PR (00:57)
[2022-05-03] MEDS ORDERED: FLEEENE12 PR (00:57)
[2022-05-03] MEDS ORDERED: APAP325T4 PO (00:57)
[2022-05-03] MEDS ORDERED: ACET500T15 PO (00:57)
[2022-05-03] MEDS ORDERED: VANCOMYCIN HCL 1,000 MG, VIAL MATE ADAPTER 1 EACH in NS 250 ML IV ONE ×8 (01:00→09:00)
[2022-05-03] MEDS ORDERED: HYDROCORTIZONE TOP (01:01)
[2022-05-03] MEDS ORDERED: HOME MED LIST COMPLETE! XX SCH (01:05)
[2022-05-03] MEDS ORDERED: oxyCODONE 5MG TAB PO PRN (02:15)
[2022-05-03] MEDS ORDERED: MOM 30ML SUSPENSION UDC PO PRN (02:15)
[2022-05-03] MEDS ORDERED: NYSTATIN 100,000 UNITS/GM TOPICAL PWD 15 GM TOP PRN (02:15)
[2022-05-03] MEDS ORDERED: BISACODYL 10 MG SUPP PR PRN (02:15)
[2022-05-03] MEDS ORDERED: FLEET ENEMA PR PRN (02:15)
[2022-05-03] MEDS ORDERED: ACETAMINOPHEN TAB 650MG DOSE (2X325MG) PO PRN (02:15)
[2022-05-03] MEDS ORDERED: OLANZapine INTRAMUSCULAR 10MG VIAL IM ONE ×2 (04:00)
[2022-05-03] MEDS: LevoFLOXacin IV 750 MG in IV 1 EA IV SCH (05:55)
[2022-05-03] MEDS ORDERED: HALOPERIDOL 5MG/ML VIAL (J1630 PER 1) IM PRN (08:00)
[2022-05-03 08:10] VITALS: BP 142/60
[2022-05-03 08:55] LABS: BASO % 0.2 % (0.0-1.0); HEMOGLOBIN 13.2 g/dl (12.0-15.5); LYMPH # 0.4 10^3/uL (1.5-5.0); LYMPH % 2.3 % (24.0-44.0); MEAN CORPUSCULAR VOLUME 96.9 fl (80.0-96.0); MONO # 0.5 10^3/uL (0.0-0.8); MONO % 3.4 % (2.0-8.0); NEUTROPHILS # 14.9 10^3/uL (1.5-8.5); PLATELET COUNT, AUTOMATED 122 10^3/uL (150-450); RED BLOOD COUNT 4.13 10^6/uL (4.00-5.40)
[2022-05-03] MEDS ORDERED: haloperidoL 0.5 MG TAB PO SCH (09:00)
[2022-05-03] MEDS ORDERED: FUROSEMIDE 40 MG TAB PO SCH (09:00)
[2022-05-03 09:19] LABS: ALT/SGPT 20 U/L (12-78); BILIRUBIN,TOTAL 0.4 MG/DL (0.2-1.0); BLOOD UREA NITROGEN 24 MG/DL (7-18); CALCIUM LEVEL 8.8 MG/DL (8.5-10.1); CARBON DIOXIDE LEVEL 23 MEQ/L (21-32); CHLORIDE LEVEL 109 MEQ/L (98-107); CREATININE FOR GFR 0.94 MG/DL (0.55-1.30); GLOMERULAR FILTRATION RATE > 60.0 (>51); GLUCOSE, FASTING 116 MG/DL (70-100); MAGNESIUM LEVEL 2.1 MG/DL (1.8-2.4); POTASSIUM SERUM 4.2 MEQ/L (3.5-5.1); SODIUM LEVEL 141 MEQ/L (136-145); TOTAL PROTEIN 6.2 GM/DL (6.4-8.2)
[2022-05-03 09:20] LABS: CK-MB VALUE MASS 1.3 NG/ML (<3.6); MB/CK RELATIVE INDEX 0.55 (< OR =4)
[2022-05-03] MEDS: NYSTATIN 100,000 UNITS/GM TOPICAL PWD 15 GM TOP SCH ×2 (10:06→20:11)
[2022-05-03] MEDS: SENNA 8.6 MG TAB (SENOKOT) PO SCH ×2 (10:07→20:11)
[2022-05-03] MEDS: TOPIRAMATE (TopAMAX) 100 MG TAB PO SCH ×2 (10:07→20:11)
[2022-05-03] MEDS: HEPARIN SOD (PORCINE) 5000UNITS/ML 1ML VIAL/SYRINGE SC SCH ×2 (10:07→20:12)
[2022-05-03] MEDS: levETIRAcetam 250MG TABLET (KEPPRA) PO SCH ×2 (10:07→20:11)
[2022-05-03] MEDS: ACETAMINOPHEN 500 MG TAB PO SCH ×2 (10:07→20:11)
[2022-05-03] MEDS: QUEtiapine FUMARATE 25 MG TAB PO SCH ×2 (11:58→20:11)
[2022-05-03 12:13] VITALS: BP 94/52
[2022-05-03] MEDS ORDERED: NS 1,000 ML IV ONE (12:40)
[2022-05-03 14:00] VITALS: BP 94/50
[2022-05-03 14:42] VITALS: BP 103/53
[2022-05-03] MEDS: NS 1,000 ML IV SCH (15:44)
[2022-05-03 16:38] VITALS: BP 110/52
[2022-05-03] MEDS: VANCOMYCIN HCL 1,000 MG, VIAL MATE ADAPTER 1 EACH in NS 250 ML IV SCH (19:16)
[2022-05-03 20:00] VITALS: BP 98/56
[2022-05-03] MEDS: MIRALAX *UNIT DOSE* 17GM PACKET PO SCH (20:10)
[2022-05-03] MEDS: LEVOTHYROXINE 75MCG TABLET (0.075MG) PO SCH (20:11)
[2022-05-04] VITALS: BP 90/52
[2022-05-04] MEDS: NS 1,000 ML IV SCH ×3 (01:15→14:04)
[2022-05-04] MEDS: VANCOMYCIN HCL 1,000 MG, VIAL MATE ADAPTER 1 EACH in NS 250 ML IV SCH ×2 (03:11→16:49)
[2022-05-04 04:00] VITALS: BP 102/50
[2022-05-04] MEDS: LevoFLOXacin IV 750 MG in IV 1 EA IV SCH (04:21)
[2022-05-04 08:29] VITALS: BP 100/62
[2022-05-04 09:01] LABS: BLOOD UREA NITROGEN 24 MG/DL (7-18); CALCIUM LEVEL 8.4 MG/DL (8.5-10.1); CARBON DIOXIDE LEVEL 22 MEQ/L (21-32); CHLORIDE LEVEL 113 MEQ/L (98-107); CREATININE FOR GFR 0.76 MG/DL (0.55-1.30); GLOMERULAR FILTRATION RATE > 60.0 (>51); GLUCOSE, FASTING 92 MG/DL (70-100); MAGNESIUM LEVEL 2.1 MG/DL (1.8-2.4); POTASSIUM SERUM 3.9 MEQ/L (3.5-5.1); SODIUM LEVEL 142 MEQ/L (136-145)
[2022-05-04] MEDS: NYSTATIN 100,000 UNITS/GM TOPICAL PWD 15 GM TOP SCH ×2 (09:11→21:15)
[2022-05-04] MEDS: HEPARIN SOD (PORCINE) 5000UNITS/ML 1ML VIAL/SYRINGE SC SCH ×2 (09:11→21:13)
[2022-05-04] MEDS: QUEtiapine FUMARATE 25 MG TAB PO SCH (09:11)
[2022-05-04] MEDS: levETIRAcetam 250MG TABLET (KEPPRA) PO SCH ×2 (09:12→21:14)
[2022-05-04] MEDS: ACETAMINOPHEN 500 MG TAB PO SCH ×2 (09:12→21:14)
[2022-05-04] MEDS: TOPIRAMATE (TopAMAX) 100 MG TAB PO SCH ×2 (09:12→21:14)
[2022-05-04] MEDS: SENNA 8.6 MG TAB (SENOKOT) PO SCH ×2 (09:12→21:14)
[2022-05-04 09:59] LABS: HEMATOCRIT 36.4 % (36.0-47.0); HEMOGLOBIN 11.8 g/dl (12.0-15.5); MEAN CORPUSCULAR HEMOGLOBIN 31.8 pg (27.0-33.0); MEAN CORPUSCULAR HGB CONC 32.4 g/dl (32.0-36.5); MEAN CORPUSCULAR VOLUME 98.1 fl (80.0-96.0); RED BLOOD COUNT 3.71 10^6/uL (4.00-5.40); WHITE BLOOD COUNT 8.4 10^3/uL (4.0-10.0)
[2022-05-04 10:00] LABS: PLATELET COUNT, AUTOMATED 96 10^3/uL (150-450)
[2022-05-04 10:04] LABS: LYMPHOCYTES 8 % (16-44); MONOCYTES 1 % (0-5); NEUTROPHILS 81 % (28-66)
[2022-05-04 10:06] LABS: PLATELET ESTIMATE DECREASED (NORMAL)
[2022-05-04 12:06] VITALS: BP 90/58
[2022-05-04] MEDS ORDERED: NS 1,000 ML IV ONE (12:35)
[2022-05-04 15:49] VITALS: BP 118/57
[2022-05-04 20:23] VITALS: BP 111/54
[2022-05-04] MEDS ORDERED: QUEtiapine FUMARATE 50MG TAB PO SCH (21:00)
[2022-05-04] MEDS: MIRALAX *UNIT DOSE* 17GM PACKET PO SCH (21:13)
[2022-05-04] MEDS: LEVOTHYROXINE 75MCG TABLET (0.075MG) PO SCH (21:15)
[2022-05-05] VITALS (7 sets, daily range): BP systolic 96–118; BP diastolic 52–76
[2022-05-05] MEDS: VANCOMYCIN HCL 1,000 MG, VIAL MATE ADAPTER 1 EACH in NS 250 ML IV SCH (03:39)
[2022-05-05] MEDS: LevoFLOXacin IV 750 MG in IV 1 EA IV SCH (04:45)
[2022-05-05 07:45] LABS: HEMATOCRIT 35.5 % (36.0-47.0); HEMOGLOBIN 11.6 g/dl (12.0-15.5); MEAN CORPUSCULAR HEMOGLOBIN 31.9 pg (27.0-33.0); MEAN CORPUSCULAR HGB CONC 32.7 g/dl (32.0-36.5); MEAN CORPUSCULAR VOLUME 97.5 fl (80.0-96.0); RED BLOOD COUNT 3.64 10^6/uL (4.00-5.40); WHITE BLOOD COUNT 7.2 10^3/uL (4.0-10.0)
[2022-05-05] MEDS: NS 1,000 ML IV SCH (07:57)
[2022-05-05 08:05] LABS: PLATELET COUNT, AUTOMATED 99 10^3/uL (150-450)
[2022-05-05 08:19] LABS: BLOOD UREA NITROGEN 21 MG/DL (7-18); CALCIUM LEVEL 7.8 MG/DL (8.5-10.1); CARBON DIOXIDE LEVEL 19 MEQ/L (21-32); CHLORIDE LEVEL 116 MEQ/L (98-107); CREATININE FOR GFR 0.77 MG/DL (0.55-1.30); GLOMERULAR FILTRATION RATE > 60.0 (>51); GLUCOSE, FASTING 100 MG/DL (70-100); MAGNESIUM LEVEL 1.9 MG/DL (1.8-2.4); POTASSIUM SERUM 3.9 MEQ/L (3.5-5.1); SODIUM LEVEL 140 MEQ/L (136-145)
[2022-05-05] MEDS: TOPIRAMATE (TopAMAX) 100 MG TAB PO SCH ×2 (09:16→20:15)
[2022-05-05] MEDS: NYSTATIN 100,000 UNITS/GM TOPICAL PWD 15 GM TOP SCH ×2 (09:16→20:14)
[2022-05-05] MEDS: levETIRAcetam 250MG TABLET (KEPPRA) PO SCH ×2 (09:16→20:15)
[2022-05-05] MEDS: HEPARIN SOD (PORCINE) 5000UNITS/ML 1ML VIAL/SYRINGE SC SCH ×2 (09:16→20:14)
[2022-05-05] MEDS: SENNA 8.6 MG TAB (SENOKOT) PO SCH ×2 (09:17→20:15)
[2022-05-05] MEDS: ACETAMINOPHEN 500 MG TAB PO SCH ×2 (09:17→20:15)
[2022-05-05 09:26] LABS: EOSINOPHILS 2 % (0-3); LYMPHOCYTES 7 % (16-44); MONOCYTES 4 % (0-5); NEUTROPHILS 81 % (28-66); TEAR DROP CELLS 1+
[2022-05-05 09:27] LABS: OVALOCYTES 1+; PLATELET ESTIMATE DECREASED (NORMAL)
[2022-05-05 10:13] LABS: ABG BASE EXCESS -4.9 (-2.0-2.0); ABG HCO3 18.1 MEQ/L (22.0-26.0); ABG PARTIAL PRESSURE O2 118.8 mmHg (75.0-100.0); ABG STANDARD HCO3 20.4 MEQ/L (22.0-26.0); ABG pH (ARTERIAL) 7.429 UNITS (7.350-7.450)
[2022-05-05] MEDS ORDERED: FUROSEMIDE 40MG/4ML VIAL (J1940) IV ONE (10:15)
[2022-05-05 10:29] LABS: NT-PRO BNP 1128 PG/ML (<125)
[2022-05-05] MEDS: VANCOMYCIN HCL 750 MG, VIAL MATE ADAPTER 1 EACH in NS 250 ML IV SCH (20:14)
[2022-05-05] MEDS: MIRALAX *UNIT DOSE* 17GM PACKET PO SCH (20:14)
[2022-05-05] MEDS: LEVOTHYROXINE 75MCG TABLET (0.075MG) PO SCH (20:15)
[2022-05-05] MEDS ORDERED: OLANZapine INTRAMUSCULAR 10MG VIAL IM ONE (21:20)
[2022-05-06] VITALS: BP 98/51
[2022-05-06 04:00] VITALS: BP 94/55
[2022-05-06] MEDS: LevoFLOXacin IV 750 MG in IV 1 EA IV SCH (04:32)
[2022-05-06 05:55] LABS: BASO % 0.5 % (0.0-1.0); EOS # 0.2 10^3/uL (0.0-0.5); EOS % 2.6 % (0.0-3.0); HEMATOCRIT 36.7 % (36.0-47.0); HEMOGLOBIN 11.8 g/dl (12.0-15.5); LYMPH # 1.2 10^3/uL (1.5-5.0); LYMPH % 14.9 % (24.0-44.0); MEAN CORPUSCULAR HEMOGLOBIN 31.1 pg (27.0-33.0); MEAN CORPUSCULAR HGB CONC 32.2 g/dl (32.0-36.5); MEAN CORPUSCULAR VOLUME 96.6 fl (80.0-96.0); MONO # 0.6 10^3/uL (0.0-0.8); MONO % 6.9 % (2.0-8.0); NEUTROPHILS # 5.9 10^3/uL (1.5-8.5); NEUTROPHILS % 74.1 % (36.0-66.0); PLATELET COUNT, AUTOMATED 105 10^3/uL (150-450)
[2022-05-06 06:17] LABS: BLOOD UREA NITROGEN 19 MG/DL (7-18); CALCIUM LEVEL 8.1 MG/DL (8.5-10.1); CARBON DIOXIDE LEVEL 21 MEQ/L (21-32); CHLORIDE LEVEL 113 MEQ/L (98-107); GLOMERULAR FILTRATION RATE > 60.0 (>51); GLUCOSE, FASTING 101 MG/DL (70-100); MAGNESIUM LEVEL 1.8 MG/DL (1.8-2.4); POTASSIUM SERUM 3.6 MEQ/L (3.5-5.1); SODIUM LEVEL 139 MEQ/L (136-145)
[2022-05-06 08:00] VITALS: BP 101/54
[2022-05-06] MEDS: VANCOMYCIN HCL 750 MG, VIAL MATE ADAPTER 1 EACH in NS 250 ML IV SCH ×2 (08:23→19:23)
[2022-05-06] MEDS: levETIRAcetam 250MG TABLET (KEPPRA) PO SCH ×2 (08:23→19:53)
[2022-05-06] MEDS: ACETAMINOPHEN 500 MG TAB PO SCH ×3 (08:24→19:55)
[2022-05-06] MEDS: NYSTATIN 100,000 UNITS/GM TOPICAL PWD 15 GM TOP SCH ×2 (08:24→19:54)
[2022-05-06] MEDS: HEPARIN SOD (PORCINE) 5000UNITS/ML 1ML VIAL/SYRINGE SC SCH ×2 (08:24→19:54)
[2022-05-06] MEDS: TOPIRAMATE (TopAMAX) 100 MG TAB PO SCH ×2 (08:24→20:01)
[2022-05-06] MEDS: SENNA 8.6 MG TAB (SENOKOT) PO SCH ×2 (08:24→19:53)
[2022-05-06 12:00] VITALS: BP 74/34
[2022-05-06] MEDS ORDERED: NS 500 ML IV ONE (12:50)
[2022-05-06 14:02] VITALS: BP 94/40
[2022-05-06 16:00] VITALS: BP 97/49
[2022-05-06] MEDS: LEVOTHYROXINE 75MCG TABLET (0.075MG) PO SCH (19:53)
[2022-05-06] MEDS: MIRALAX *UNIT DOSE* 17GM PACKET PO SCH (19:53)
[2022-05-07] MEDS: LevoFLOXacin IV 750 MG in IV 1 EA IV SCH (03:47)
[2022-05-07 04:06] VITALS: BP 108/57
[2022-05-07 06:34] LABS: BASO % 0.5 % (0.0-1.0); EOS # 0.3 10^3/uL (0.0-0.5); EOS % 3.5 % (0.0-3.0); HEMOGLOBIN 11.6 g/dl (12.0-15.5); LYMPH # 1.3 10^3/uL (1.5-5.0); LYMPH % 16.6 % (24.0-44.0); MEAN CORPUSCULAR HEMOGLOBIN 31.7 pg (27.0-33.0); MEAN CORPUSCULAR HGB CONC 32.2 g/dl (32.0-36.5); MEAN CORPUSCULAR VOLUME 98.4 fl (80.0-96.0); MONO # 0.6 10^3/uL (0.0-0.8); MONO % 7.9 % (2.0-8.0); NEUTROPHILS # 5.5 10^3/uL (1.5-8.5); NEUTROPHILS % 68.5 % (36.0-66.0); PLATELET COUNT, AUTOMATED 141 10^3/uL (150-450); RED BLOOD COUNT 3.66 10^6/uL (4.00-5.40)
[2022-05-07 07:01] LABS: BLOOD UREA NITROGEN 16 MG/DL (7-18); CALCIUM LEVEL 8.2 MG/DL (8.5-10.1); CARBON DIOXIDE LEVEL 25 MEQ/L (21-32); CHLORIDE LEVEL 114 MEQ/L (98-107); CREATININE FOR GFR 0.94 MG/DL (0.55-1.30); GLOMERULAR FILTRATION RATE > 60.0 (>51); GLUCOSE, FASTING 96 MG/DL (70-100); MAGNESIUM LEVEL 1.9 MG/DL (1.8-2.4); POTASSIUM SERUM 4.5 MEQ/L (3.5-5.1); SODIUM LEVEL 141 MEQ/L (136-145)
[2022-05-07 08:00] VITALS: BP 98/53
[2022-05-07] MEDS: TOPIRAMATE (TopAMAX) 100 MG TAB PO SCH ×2 (08:46→20:51)
[2022-05-07] MEDS: HEPARIN SOD (PORCINE) 5000UNITS/ML 1ML VIAL/SYRINGE SC SCH ×2 (08:46→20:51)
[2022-05-07] MEDS: SENNA 8.6 MG TAB (SENOKOT) PO SCH ×2 (08:46→20:52)
[2022-05-07] MEDS: levETIRAcetam 250MG TABLET (KEPPRA) PO SCH ×2 (08:46→20:51)
[2022-05-07] MEDS: VANCOMYCIN HCL 750 MG, VIAL MATE ADAPTER 1 EACH in NS 250 ML IV SCH (08:47)
[2022-05-07] MEDS: NYSTATIN 100,000 UNITS/GM TOPICAL PWD 15 GM TOP SCH ×2 (08:47→20:52)
[2022-05-07] MEDS ORDERED: VANCOMYCIN HCL 500 MG in D5W MINI-BAG PLUS 100 ML IV ONE (11:05)
[2022-05-07 12:00] VITALS: BP 120/69
[2022-05-07 16:00] VITALS: BP 114/52
[2022-05-07 20:00] VITALS: BP 112/56
[2022-05-07] MEDS: DOXYCYCLINE HYCLATE 100MG TABLET PO SCH (20:51)
[2022-05-07] MEDS: LEVOTHYROXINE 75MCG TABLET (0.075MG) PO SCH (20:51)
[2022-05-07] MEDS: ACETAMINOPHEN 500 MG TAB PO SCH (20:51)
[2022-05-07] MEDS: MIRALAX *UNIT DOSE* 17GM PACKET PO SCH (20:52)
[2022-05-08] VITALS: BP 113/51
[2022-05-08 04:00] VITALS: BP 114/54
[2022-05-08] MEDS ORDERED: LevoFLOXacin 750 MG TABLET PO SCH (06:00)
[2022-05-08 07:49] LABS: HEMOGLOBIN 12.7 g/dl (12.0-15.5); MEAN CORPUSCULAR HEMOGLOBIN 31.2 pg (27.0-33.0); MEAN CORPUSCULAR HGB CONC 32.6 g/dl (32.0-36.5); MEAN CORPUSCULAR VOLUME 95.8 fl (80.0-96.0); PLATELET COUNT, AUTOMATED 156 10^3/uL (150-450); RED BLOOD COUNT 4.07 10^6/uL (4.00-5.40); WHITE BLOOD COUNT 7.8 10^3/uL (4.0-10.0)
[2022-05-08 08:04] LABS: BLOOD UREA NITROGEN 13 MG/DL (7-18); CALCIUM LEVEL 8.8 MG/DL (8.5-10.1); CARBON DIOXIDE LEVEL 20 MEQ/L (21-32); CHLORIDE LEVEL 115 MEQ/L (98-107); CREATININE FOR GFR 0.66 MG/DL (0.55-1.30); GLOMERULAR FILTRATION RATE > 60.0 (>51); GLUCOSE, FASTING 106 MG/DL (70-100); POTASSIUM SERUM 4.1 MEQ/L (3.5-5.1); SODIUM LEVEL 143 MEQ/L (136-145)
[2022-05-08 08:25] VITALS: BP 118/55
[2022-05-08 08:42] LABS: ATYPICAL LYMPH 2 % (0-5); BASOPHILS 1 % (0-1); EOSINOPHILS 1 % (0-3); LYMPHOCYTES 22 % (16-44); METAMYELOCYTES 1 % (0-0); MONOCYTES 8 % (0-5); MYELOCYTES 5 % (0-0); NEUTROPHILS 55 % (28-66); PROMYELOCYTES 1 % (0-0)
[2022-05-08 08:43] LABS: PLATELET ESTIMATE NORMAL (NORMAL); TEAR DROP CELLS 1+
[2022-05-08] MEDS: HEPARIN SOD (PORCINE) 5000UNITS/ML 1ML VIAL/SYRINGE SC SCH (09:56)
[2022-05-08] MEDS: ACETAMINOPHEN 500 MG TAB PO SCH (09:56)
[2022-05-08] MEDS: levETIRAcetam 250MG TABLET (KEPPRA) PO SCH (09:56)
[2022-05-08] MEDS: DOXYCYCLINE HYCLATE 100MG TABLET PO SCH (09:56)
[2022-05-08] MEDS: SENNA 8.6 MG TAB (SENOKOT) PO SCH (09:56)
[2022-05-08] MEDS: TOPIRAMATE (TopAMAX) 100 MG TAB PO SCH (09:56)
[2022-05-08] MEDS: NYSTATIN 100,000 UNITS/GM TOPICAL PWD 15 GM TOP SCH (09:57)
[2022-05-08] MEDS ORDERED: LEVO750T13 PO (11:41)
[2022-05-08] MEDS ORDERED: DOXY100T PO (11:41)
== END 2022-05-08 13:00 | DRG 872 ==
LOC: M ED 21:06 → M ED INP 05-03 06:26 → ENRESERV 05-03 06:33 → M PCU 05-03 07:42
PROVIDERS: ADMIT Family Medicine; ATTEND Family Medicine
DX: A41.9 Sepsis, unspecified organism (principal); L03.115 Cellulitis of right lower limb; E87.2 Acidosis; N39.0 Urinary tract infection, site not specified; D64.9 Anemia, unspecified; G40.909 Epilepsy, unspecified, not intractable, without status epilepticus; F79 Unspecified intellectual disabilities; E66.01 Morbid (severe) obesity due to excess calories; E03.9 Hypothyroidism, unspecified; K59.00 Constipation, unspecified; F32.A Depression, unspecified; Z79.899 Other long term (current) drug therapy; Z88.0 Allergy status to penicillin; Z88.2 Allergy status to sulfonamides; Z66 Do not resuscitate; B96.4 Proteus (mirabilis) (morganii) as the cause of diseases classified elsewhere; B95.5 Unspecified streptococcus as the cause of diseases classified elsewhere; G89.29 Other chronic pain; N20.0 Calculus of kidney; K80.20 Calculus of gallbladder without cholecystitis without obstruction

== ENCOUNTER → 2022-05-02 | Outpatient (REF) | payer MEDICARE, MEDICAID ==
[~2022-05-02] MED LIST changes: +ACET500T15 PO; +APAP325T4 PO; +BISA10SU4 PR; +DOXY100T PO; +FLEEENE12 PR; +HYDROCORTIZONE TOP; +LEVO750T13 PO
[2022-05-02 19:19] LABS: HEMATOCRIT 46.3 % (36.0-47.0); HEMOGLOBIN 14.8 g/dl (12.0-15.5); MEAN CORPUSCULAR HEMOGLOBIN 31.8 pg (27.0-33.0); MEAN CORPUSCULAR VOLUME 99.4 fl (80.0-96.0); PLATELET COUNT, AUTOMATED 143 10^3/uL (150-450); RED BLOOD COUNT 4.66 10^6/uL (4.00-5.40); WHITE BLOOD COUNT 18.8 10^3/uL (4.0-10.0)
[2022-05-02 19:48] LABS: BLOOD UREA NITROGEN 22 MG/DL (7-18); CALCIUM LEVEL 8.6 MG/DL (8.5-10.1); CARBON DIOXIDE LEVEL 23 MEQ/L (21-32); CHLORIDE LEVEL 106 MEQ/L (98-107); CREATININE FOR GFR 0.82 MG/DL (0.55-1.30); GLOMERULAR FILTRATION RATE > 60.0 (>51); GLUCOSE, FASTING 105 MG/DL (70-100); POTASSIUM SERUM 5.8 MEQ/L (3.5-5.1); SODIUM LEVEL 136 MEQ/L (136-145)
== END ==
LOC: SKLAB7 07:00
PROVIDERS: ATTEND Radiology Diagnostic Radiology
DX: R50.9 Fever, unspecified (principal)

== ENCOUNTER → 2022-05-15 | Outpatient (REF) | payer MEDICARE, MEDICAID ==
[~2022-05-15] MED LIST changes: +ACET500T15 PO; +APAP325T4 PO; +BISA10SU4 PR; +DOXY100T PO; +FLEEENE12 PR; +HYDROCORTIZONE TOP; +LEVO750T13 PO
== END ==
LOC: SKLAB7 14:43
PROVIDERS: ATTEND Nurse Practitioner Family
DX: Z51.81 Encounter for therapeutic drug level monitoring (principal); E03.9 Hypothyroidism, unspecified

== ENCOUNTER → 2022-06-21 | Outpatient (REF) | payer MEDICARE, MEDICAID | LOC: SKLAB2 07:00 | PROVIDERS: ATTEND Neuromusculoskeletal Medicine & OMM | DX: U07.1 COVID-19 (principal); Z53.9 Procedure and treatment not carried out, unspecified reason ==

== ENCOUNTER → 2022-06-22 | Outpatient (REF) | payer MEDICARE, MEDICAID | LOC: SKLAB2 06-21 11:57 | PROVIDERS: ATTEND Internal Medicine | DX: U07.1 COVID-19 (principal) ==

== ENCOUNTER → 2022-06-23 | Outpatient (REF) | payer MEDICARE, MEDICAID | LOC: SKLAB2 07:00 | PROVIDERS: ATTEND Neuromusculoskeletal Medicine & OMM | DX: U07.1 COVID-19 (principal); Z53.9 Procedure and treatment not carried out, unspecified reason ==

== ENCOUNTER → 2022-06-26 | Outpatient (REF) | payer MEDICARE, MEDICAID ==
[2022-06-26 14:53] LABS: HEMATOCRIT 43.2 % (36.0-47.0); HEMOGLOBIN 14.3 g/dl (12.0-15.5); MEAN CORPUSCULAR HEMOGLOBIN 30.6 pg (27.0-33.0); MEAN CORPUSCULAR HGB CONC 33.1 g/dl (32.0-36.5); MEAN CORPUSCULAR VOLUME 92.3 fl (80.0-96.0); PLATELET COUNT, AUTOMATED 167 10^3/uL (150-450); RED BLOOD COUNT 4.68 10^6/uL (4.00-5.40); WHITE BLOOD COUNT 4.5 10^3/uL (4.0-10.0)
[2022-06-26 15:24] LABS: ALBUMIN 3.2 GM/DL (3.2-5.2); ALT/SGPT 13 U/L (12-78); BILIRUBIN,TOTAL 0.4 MG/DL (0.2-1.0); BLOOD UREA NITROGEN 16 MG/DL (7-18); CARBON DIOXIDE LEVEL 22 MEQ/L (21-32); CHLORIDE LEVEL 113 MEQ/L (98-107); CREATININE FOR GFR 0.67 MG/DL (0.55-1.30); GLOMERULAR FILTRATION RATE > 60.0 (>51); GLUCOSE, FASTING 122 MG/DL (70-100); SODIUM LEVEL 141 MEQ/L (136-145); TOTAL PROTEIN 6.7 GM/DL (6.4-8.2)
== END ==
LOC: SKLAB2 09:55
PROVIDERS: ATTEND Neuromusculoskeletal Medicine & OMM
DX: U07.1 COVID-19 (principal); Z79.899 Other long term (current) drug therapy

== ENCOUNTER → 2022-06-30 | Outpatient (REF) | payer MEDICARE, MEDICAID | LOC: SKLAB2 09:43 | PROVIDERS: ATTEND Nurse Practitioner Family | DX: U07.1 COVID-19 (principal); Z53.9 Procedure and treatment not carried out, unspecified reason ==

== ENCOUNTER → 2022-07-09 | Outpatient (REF) | payer MEDICARE, MEDICAID ==
[~2022-07-09] MED LIST changes: +LEVO1TAB40 PO; -LEVO750T13 PO
== END ==
LOC: SKLAB7 07:00
PROVIDERS: ATTEND Nurse Practitioner Family
DX: Z51.81 Encounter for therapeutic drug level monitoring (principal); G40.909 Epilepsy, unspecified, not intractable, without status epilepticus

== ENCOUNTER → 2022-07-17 | Outpatient (REF) | payer MEDICARE, MEDICAID | LOC: SKLAB7 07:00 | PROVIDERS: ATTEND Nurse Practitioner Family | DX: E78.5 Hyperlipidemia, unspecified (principal); Z53.9 Procedure and treatment not carried out, unspecified reason ==

== ENCOUNTER → 2022-08-14 | Outpatient (REF) | payer MEDICARE, MEDICAID ==
[2022-08-14 12:51] LABS: CHOLESTEROL RISK RATIO 3.102 (<5); THYROID STIMULATING HORMONE 3.29 uIU/ML (0.358-3.740)
== END ==
LOC: SKLAB7 14:14
PROVIDERS: ATTEND Nurse Practitioner Family
DX: E03.9 Hypothyroidism, unspecified (principal); E78.5 Hyperlipidemia, unspecified

== ENCOUNTER → 2022-09-16 | Outpatient (REF) | payer MEDICARE, MEDICAID ==
[2022-09-16 09:54] LABS: HEMOGLOBIN A1c 5.1 %
== END ==
LOC: SKLAB3 08:48
PROVIDERS: ATTEND Nurse Practitioner Family
DX: E11.9 Type 2 diabetes mellitus without complications (principal)

== ENCOUNTER → 2022-09-30 | Outpatient (REF) | payer MEDICARE, MEDICAID ==
[2022-09-30 09:55] LABS: BASO % 0.5 % (0.0-1.0); EOS # 0.4 10^3/uL (0.0-0.5); EOS % 4.6 % (0.0-3.0); HEMATOCRIT 42.7 % (36.0-47.0); LYMPH # 1.6 10^3/uL (1.5-5.0); LYMPH % 21.6 % (24.0-44.0); MEAN CORPUSCULAR HEMOGLOBIN 29.8 pg (27.0-33.0); MEAN CORPUSCULAR HGB CONC 30.4 g/dl (32.0-36.5); MEAN CORPUSCULAR VOLUME 97.9 fl (80.0-96.0); MONO # 0.4 10^3/uL (0.0-0.8); MONO % 4.9 % (2.0-8.0); NEUTROPHILS # 5.2 10^3/uL (1.5-8.5); NEUTROPHILS % 67.9 % (36.0-66.0); PLATELET COUNT, AUTOMATED 159 10^3/uL (150-450); RED BLOOD COUNT 4.36 10^6/uL (4.00-5.40); WHITE BLOOD COUNT 7.6 10^3/uL (4.0-10.0)
[2022-09-30 10:30] LABS: ERYTHROCYTE SEDIMENTATION RATE 11 mm/hr (0-30)
[2022-09-30 10:52] LABS: ALT/SGPT 17 U/L (12-78); BILIRUBIN,TOTAL 0.3 MG/DL (0.2-1.0); BLOOD UREA NITROGEN 19 MG/DL (7-18); C REACTIVE PROTEIN QUANTITATIV 1.93 MG/DL (0.00-0.30); CALCIUM LEVEL 8.5 MG/DL (8.5-10.1); CARBON DIOXIDE LEVEL 21 MEQ/L (21-32); CHLORIDE LEVEL 108 MEQ/L (98-107); CREATININE FOR GFR 0.69 MG/DL (0.55-1.30); GLOMERULAR FILTRATION RATE > 60.0 (>51); GLUCOSE, FASTING 102 MG/DL (70-100); IMMUNOGLOBULIN E 10.5 IU/ML (<100); POTASSIUM SERUM 4.2 MEQ/L (3.5-5.1); SODIUM LEVEL 136 MEQ/L (136-145); TOTAL PROTEIN 6.3 GM/DL (6.4-8.2)
[2022-10-08 09:08] LABS: IMMUNOGLOBULIN E, TOTAL 11 IU/mL (6-495)
== END ==
LOC: SKLAB7 07:00
PROVIDERS: ATTEND Nurse Practitioner Family
DX: L98.8 Other specified disorders of the skin and subcutaneous tissue (principal); Z79.899 Other long term (current) drug therapy

== ENCOUNTER → 2022-10-16 | Outpatient (REF) | payer MEDICARE, MEDICAID | LOC: SKLAB7 11:35 | PROVIDERS: ATTEND Nurse Practitioner Family | DX: Z51.81 Encounter for therapeutic drug level monitoring (principal); G40.909 Epilepsy, unspecified, not intractable, without status epilepticus ==

== ENCOUNTER → 2022-11-13 | Outpatient (REF) | payer MEDICARE, MEDICAID | LOC: SKLAB7 07:00 | PROVIDERS: ATTEND Nurse Practitioner Family | DX: E03.9 Hypothyroidism, unspecified (principal) ==

== ENCOUNTER 2022-11-14 18:36 | Emergency (ER) | payer MEDICARE, MEDICAID ==
[2022-11-14 18:56] VITALS: BP 134/63
== END 2022-11-14 21:08 | disposition home or self-care (01) ==
LOC: M ED 18:36
DX: R06.02 Shortness of breath (principal); G40.89 Other seizures; F79 Unspecified intellectual disabilities; E03.9 Hypothyroidism, unspecified; E66.9 Obesity, unspecified; I10 Essential (primary) hypertension; Z88.0 Allergy status to penicillin; Z88.2 Allergy status to sulfonamides; Z79.899 Other long term (current) drug therapy; Z79.83 Long term (current) use of bisphosphonates; Z79.811 Long term (current) use of aromatase inhibitors

== ENCOUNTER → 2023-01-15 | Outpatient (REF) | payer MEDICARE, MEDICAID ==
[2023-01-15 11:47] LABS: HEMATOCRIT 44.8 % (36.0-47.0); HEMOGLOBIN 13.6 g/dl (12.0-15.5); MEAN CORPUSCULAR HEMOGLOBIN 29.2 pg (27.0-33.0); MEAN CORPUSCULAR HGB CONC 30.4 g/dl (32.0-36.5); MEAN CORPUSCULAR VOLUME 96.1 fl (80.0-96.0); PLATELET COUNT, AUTOMATED 189 10^3/uL (150-450); RED BLOOD COUNT 4.66 10^6/uL (4.00-5.40); WHITE BLOOD COUNT 8.8 10^3/uL (4.0-10.0)
[2023-01-15 13:03] LABS: ALBUMIN 3.2 G/DL (3.2-5.2); ALKALINE PHOSPHATASE 86 U/L (46-116); ALT/SGPT 18 U/L (7.0-40); AST/SGOT 11 U/L (<34); BILIRUBIN,TOTAL 0.3 MG/DL (0.3-1.2); BLOOD UREA NITROGEN 24 MG/DL (9-23); CALCIUM LEVEL 8.9 MG/DL (8.5-10.1); CARBON DIOXIDE LEVEL 24 MMOL/L (20-31); CHLORIDE LEVEL 106 MMOL/L (98-107); CREATININE FOR GFR 0.68 MG/DL (0.55-1.30); GLOMERULAR FILTRATION RATE > 60.0 (>51); GLUCOSE, FASTING 106 MG/DL (60-100); POTASSIUM SERUM 3.7 MMOL/L (3.5-5.1); SODIUM LEVEL 139 MMOL/L (136-145); TOTAL PROTEIN 5.9 G/DL (5.7-8.2)
== END ==
LOC: SKLAB7 11:21
PROVIDERS: ATTEND Internal Medicine
DX: Z51.81 Encounter for therapeutic drug level monitoring (principal); Z79.01 Long term (current) use of anticoagulants

== ENCOUNTER → 2023-02-12 | Outpatient (REF) | payer MEDICARE, MEDICAID ==
[~2023-02-12] MED LIST changes: +TOPI-254; -TOPI50TA9
== END ==
LOC: SKLAB7 07:00
PROVIDERS: ATTEND Internal Medicine
DX: E03.9 Hypothyroidism, unspecified (principal)

== ENCOUNTER → 2023-04-16 | Outpatient (REF) ==
[~2023-04-16] MED LIST changes: +FLUT50SP17 NARES; -FLUTISP NARES; -SENN-111 PO; +SENN-188 PO
[2023-04-16 09:11] LABS: ALKALINE PHOSPHATASE 124 U/L (46-116); ALT/SGPT 46 U/L (7.0-40); AST/SGOT 8 U/L (<34); BILIRUBIN,TOTAL 0.3 MG/DL (0.3-1.2); BLOOD UREA NITROGEN 15 MG/DL (9-23); CALCIUM LEVEL 8.4 MG/DL (8.5-10.1); CARBON DIOXIDE LEVEL 22 MMOL/L (20-31); CHLORIDE LEVEL 106 MMOL/L (98-107); CREATININE FOR GFR 0.69 MG/DL (0.55-1.30); GLOMERULAR FILTRATION RATE > 60.0 (>51); GLUCOSE, FASTING 83 MG/DL (60-100); POTASSIUM SERUM 4.1 MMOL/L (3.5-5.1); SODIUM LEVEL 137 MMOL/L (136-145); TOTAL PROTEIN 5.7 G/DL (5.7-8.2)
[2023-04-16 10:37] LABS: HEMATOCRIT 39.9 % (36.0-47.0); HEMOGLOBIN 12.6 g/dl (12.0-15.5); MEAN CORPUSCULAR HEMOGLOBIN 28.7 pg (27.0-33.0); MEAN CORPUSCULAR HGB CONC 31.6 g/dl (32.0-36.5); MEAN CORPUSCULAR VOLUME 90.9 fl (80.0-96.0); PLATELET COUNT, AUTOMATED 189 10^3/uL (150-450); RED BLOOD COUNT 4.39 10^6/uL (4.00-5.40); WHITE BLOOD COUNT 6.5 10^3/uL (4.0-10.0)
== END ==
LOC: SKLAB7 14:04
PROVIDERS: ATTEND Internal Medicine
DX: Z51.81 Encounter for therapeutic drug level monitoring (principal); Z79.01 Long term (current) use of anticoagulants

== ENCOUNTER → 2023-05-14 | Outpatient (REF) | payer MEDICARE, MEDICAID | LOC: SKLAB7 07:00 | PROVIDERS: ATTEND Internal Medicine | DX: E03.9 Hypothyroidism, unspecified (principal) ==

== ENCOUNTER → 2023-06-09 | Outpatient (REF) | payer MEDICARE, MEDICAID | LOC: SKLAB7 07:00 | PROVIDERS: ATTEND Internal Medicine | DX: Z51.81 Encounter for therapeutic drug level monitoring (principal); Z79.899 Other long term (current) drug therapy ==

== ENCOUNTER → 2023-07-16 | Outpatient (REF) | payer MEDICARE, MEDICAID ==
[2023-07-16 11:55] LABS: HEMATOCRIT 40.4 % (36.0-47.0); HEMOGLOBIN 12.1 g/dl (12.0-15.5); MEAN CORPUSCULAR HEMOGLOBIN 27.9 pg (27.0-33.0); MEAN CORPUSCULAR VOLUME 93.1 fl (80.0-96.0); PLATELET COUNT, AUTOMATED 223 10^3/uL (150-450); RED BLOOD COUNT 4.34 10^6/uL (4.00-5.40); WHITE BLOOD COUNT 8.8 10^3/uL (4.0-10.0)
[2023-07-16 12:19] LABS: ALBUMIN 3.5 G/DL (3.2-5.2); ALKALINE PHOSPHATASE 64 U/L (46-116); ALT/SGPT 14 U/L (7.0-40); AST/SGOT < 8 U/L (<34); BILIRUBIN,TOTAL 0.3 MG/DL (0.3-1.2); BLOOD UREA NITROGEN 22 MG/DL (9-23); CALCIUM LEVEL 8.9 MG/DL (8.5-10.1); CARBON DIOXIDE LEVEL 25 MMOL/L (20-31); CHLORIDE LEVEL 108 MMOL/L (98-107); CHOLESTEROL LEVEL 169 MG/DL (<200); CHOLESTEROL RISK RATIO 2.96 (<5); CREATININE FOR GFR 0.76 MG/DL (0.55-1.30); GLOMERULAR FILTRATION RATE > 60.0 (>51); GLUCOSE, FASTING 106 MG/DL (60-100); LDL CHOLESTEROL 93.6 MG/DL (<100); POTASSIUM SERUM 3.8 MMOL/L (3.5-5.1); SODIUM LEVEL 142 MMOL/L (136-145); TOTAL PROTEIN 6.2 G/DL (5.7-8.2); TRIGLYCERIDES LEVEL 92 MG/DL (<150)
== END ==
LOC: SKLAB7 07:00
PROVIDERS: ATTEND Internal Medicine
DX: Z79.01 Long term (current) use of anticoagulants (principal); E78.5 Hyperlipidemia, unspecified